=== PATIENT | male | born 1930 | race Caucasian/White ===

== ENCOUNTER 2017-04-20 15:13 | Inpatient (IN) | payer MEDICARE ==
--- NOTE | 2017-04-20 16:36 | RAD ---
CHEST ONE VIEW: HISTORY: Pain. COMPARISON: 05/13/2014 FINDINGS: Portable upright chest demonstrates a left-sided transvenous pacemaker with lead position projecting over the right atrium and right ventricle. There is evidence of a mesh type appearance projecting ov er the AP window. There is atherosclerosis of the aorta. The heart is enlarged. There are bibasila r pleural and parenchymal changes. There is no pneumothorax. No osseous abnormalities. IMPRESSION: Congestive heart failure. Continued surveillance. POS: [facility]
--- NOTE | 2017-04-20 16:57 | ULT ---
VENOUS DOPPLER ULTRASOUND OF THE RIGHT LOWER EXTREMITY: HISTORY: Right leg edema. Shortness of breath. TECHNIQUE: Yoo-scale ultrasound with color-flow and spectral Doppler imaging of the deep venous system of the r ight lower extremity is performed. FINDINGS: There is good flow, compression, and augmentation noted in the right common femoral, femoral, deep fe moral, popliteal, posterior tibial, and greater saphenous veins. IMPRESSION: No evidence of deep venous thrombosis in the right lower extremity. POS: [facility]
[2017-04-20 17:19] LABS: #Lymphocytes 0.4 thou/uL (1.20-3.40); #Monocytes 1.4 thou/uL (0.11-0.59); %Eosinophils 0.1 % (0.0-10.0); %Lymphocytes 2.2 % (21.0-51.0); %Monocytes 7.6 % (0.0-10.0); %Neutrophils 90.2 % (42.0-75.0); Hemoglobin 12.9 g/dL (14.0-18.0); Mean Corpuscular Hemoglobin 30.6 pg (27.0-31.0); Mean Corpuscular Volume 95.6 fl (80.0-94.0); Mean Platelet Volume 8.9 fL (7.4-10.4); Platelet Count 155 thou/uL (130-400); RBC Distribution Width 13.3 % (11.5-14.5); White Blood Cell (WBC) Count 18.9 thou/uL (4.8-10.8)
[2017-04-20 17:26] LABS: INR-International Normal Ratio 1.5; Prothrombin Time 18.2 SEC (12.0-14.7)
[2017-04-20 17:27] LABS: PTT 36.4 SEC (22.9-36.1)
[2017-04-20 17:45] LABS: CKMB 1.2 ng/mL (0-6.6); Troponin I 0.199 ng/mL (< 0.028)
[2017-04-20 17:51] LABS: ALT (SGPT) 23 U/L (8-55); AST (SGOT) 31 U/L (5-34); Alkaline Phosphatase 119 U/L (40-150); Anion Gap 15 mmol/L (10-20); BUN (Urea Nitrogen) 53 mg/dL (8.4-25.7); Bilirubin, Total 1.6 mg/dL (0.2-1.2); CK (CPK) 100 U/L (30-200); Calc. Creatinine Clearance 0 mL/min (70-130); Calcium 9.7 mg/dL (7.8-10.44); Carbon Dioxide 32 mmol/L (23-31); Chloride 95 mmol/L (98-107); Estimated GFR-MDRD 36; Globulin 3.4 g/dL (2.4-3.5); Glucose 135 mg/dL (83-110); Potassium 3.4 mmol/L (3.5-5.1); Protein, Total 7.4 g/dL (5.8-8.1); Sodium 139 mmol/L (136-145)
[2017-04-20] MEDS ORDERED: Furosemide 40 MG/4 ML VIAL ONE (18:48)
[2017-04-20 18:49] LABS: Bilirubin Negative (Negative); Blood, Urine Small (Negative); Glucose, Urine (Dipstick) Negative (Negative); Leukocyte Large (Negative); Nitrite Negative (Negative); Protein, Urine (Dipstick) Trace mg/dL (Neg-Trace); Urobilinogen 0.2 mg/dL (0.2-1.0)
[2017-04-20 18:50] LABS: Clarity Hazy (Clear)
[2017-04-20 18:52] LABS: Hyaline Casts/LPF 0-3 HYALINE CAST LPF (0-3 Hyaline); Pathc Cast-AUWi Flag 0.54 (0-2.49); RBC/HPF 0-3 HPF (0-3); Squamous Epithelial 0-3 HPF (0-3)
[2017-04-20 19:00] LABS: Bacteria/HPF 4+ HPF (None Seen)
[2017-04-20 19:01] LABS: Crystals/HPF None Seen HPF (Negative)
[2017-04-20 20:32] LABS: Troponin I 0.216 ng/mL (< 0.028)
[2017-04-20] MEDS ORDERED: Acetaminophen 325 MG TAB PO PRN ×2 (21:02→23:30)
[2017-04-20] MEDS ORDERED: Ondansetron HCl/PF 4 MG/2 ML Vial IVP PRN (21:02)
[2017-04-20] MEDS ORDERED: Ondansetron ODT 4 MG TAB SL PRN (21:02)
[2017-04-20 22:48] LABS: Troponin I 0.232 ng/mL (< 0.028)
[2017-04-20] MEDS ORDERED: Enoxaparin Sodium 40 MG/0.4 ML SYRINGE SC SCH (23:30)
[2017-04-20] MEDS ORDERED: Ondansetron ODT 4 MG TAB PO PRN (23:30)
[2017-04-21] MEDS ORDERED: Furosemide 40 MG/4 ML VIAL SLOW IVP SCH ×2 (00:30→06:00)
[2017-04-21] MEDS: Furosemide 100 MG/10 ML VIAL SLOW IVP SCH ×3 (00:36→14:59)
[2017-04-21 01:46] LABS: Troponin I 0.275 ng/mL (< 0.028)
[2017-04-21 05:39] LABS: Anion Gap 17 mmol/L (10-20); BUN (Urea Nitrogen) 58 mg/dL (8.4-25.7); Calc. Creatinine Clearance 28 mL/min (70-130); Calcium 9.3 mg/dL (7.8-10.44); Carbon Dioxide 32 mmol/L (23-31); Chloride 94 mmol/L (98-107); Estimated GFR-MDRD 34; Glucose 121 mg/dL (83-110); Magnesium 2.4 mg/dL (1.6-2.6); Potassium 3.5 mmol/L (3.5-5.1); Sodium 139 mmol/L (136-145)
[2017-04-21] MEDS: Nitroglycerin 2% Ointment 1 INCH/1 GM Packet TOP SCH ×3 (05:48→22:45)
[2017-04-21 06:01] LABS: Band 5 % (5-11); Hemoglobin 12.4 g/dL (14.0-18.0); Lymphocytes 5 % (21-51); MDiff Complete? YES; Macrocytosis SLIGHT = 6-15 cells (100X) (0-5/hpf); Mean Corpuscular HGB CONC 32.7 g/dL (32.0-36.0); Mean Corpuscular Hemoglobin 31.5 pg (27.0-31.0); Mean Corpuscular Volume 96.3 fl (80.0-94.0); Mean Platelet Volume 8.7 fL (7.4-10.4); Monocytes 1 % (0-10); Neutrophil 88 % (42-75); PLT Morphology Comment Appears Adequate; Platelet Count 143 thou/uL (130-400); RBC Distribution Width 13.3 % (11.5-14.5); Red Blood Cell (RBC) Count 3.96 mill/uL (4.70-6.10); White Blood Cell (WBC) Count 17.5 thou/uL (4.8-10.8)
--- NOTE | 2017-04-21 07:33 | HP ---
PRIMARY CARE PHYSICIAN: Not listed. PRIMARY AUTOMATION TEST DEVELOPER: Shahbaz Sexton MD CHIEF COMPLAINT: Shortness of breath. HISTORY OF PRESENT ILLNESS: Disclaimer: Majority of the history was taken from the chart. The patient is arousable, but is extremely hard of hearing. When finally awakened, he will quickly go back to sleep and was unable to give any further history. I did speak to his nurse who has been with him since admission. On initial arrival to the ER, he was alert and oriented x4. Mr. River is an 87-year-old white gentleman with a history of coronary artery disease, status post TX in the past; chronic atrial fibrillation, status post procedure in [place] in 10/2016, is also status post pacemaker and AICD placement in 08/2016. He has hyperlipidemia, hypertension, who presented to emergency department complaining of shortness of breath. He has had a 4-5 week history of increasing shortness of breath with dyspnea on exertion. He has had no PND, but does have orthopnea. He has had steadily increased weight, although I do not know how severe during that time. He has had increasing doses of Lasix from 120 mg q.24 hours divided up to 160 mg recently without much effect. He has had bilateral lower extremity edema that seems to be increasing as well. No chest pain, no nausea, vomiting, diarrhea, constipation , or GI bleeding. He denies any abdominal pain or palpitations. In the emergency department, he was given IV Lasix, we were called for admission when chest x-ray and BNP suggestive CHF. PAST MEDICAL HISTORY: 1. Coronary artery disease. 2. Status post myocardial infarction in the past. 3. Chronic atrial fibrillation. 4. Hyperlipidemia. 5. Hypertension. PAST SURGICAL HISTORY: Include; 1. Hernia repair. 2. Pacemaker placement/AICD in 08/2016 and 10/2016, had a Watchman procedure in [place]. HOME MEDICATIONS: 1. Metolazone 7.5 mg orally weekly. 2. Potassium chloride 20 mEq daily. 3. Coreg 3.125 mg p.o. q.a.m., 6.25 mg p.o. q.p.m. 4. Zocor 20 mg p.o. at bedtime. 5. Losartan 25 mg p.o. at bedtime. 6. Lasix currently at 80 mg b.i.d. and in morning and in noon. 7. Finasteride 5 mg daily. 8. Plavix 75 mg daily. 9. Terazosin 10 mg daily. 10. Aspirin 81 mg daily. 11. Melatonin 5 mg p.o. at bedtime. ALLERGIES: NKDA. FAMILY HISTORY: Negative for clotting or bleeding disorder. No immune dysfunction. SOCIAL HISTORY: Negative for habits x3. He is and lives at home with his . REVIEW OF SYSTEMS: Not obtainable due to increased somnolence. PHYSICAL EXAMINATION: VITAL SIGNS: Temperature 100.1, pulse 67, blood pressure 100/53, respiration rate 18, O2 sat 93% on room air. Weight is currently 161 pounds per bed scale. GENERAL: He is sleeping soundly. He appears comfortable, in no distress. He is arousable and opens his eyes, but quickly falls back asleep. He does not make eye contact, does not try to communicate. HEENT: Normocephalic, atraumatic. Pupils are equal, reactive bilaterally, mucous membranes are moist. Nasal cannula is in place. NECK: Supple with no lymphadenopathy, JVD, or thyromegaly. He has normal carotid upstrokes without bruits. LUNGS: Clear anteriorly, however, posteriorly, he has coarse crackles present about half way of the lungs. He has good air movement. Symmetrical chest excursion. CARDIOVASCULAR: He has regular rate in mid 70s. He has normal S1 and S2. I do not appreciate murmurs. ABDOMEN: Soft, is nontender, nondistended with normoactive bowel sounds. There is no rebound, rigidity, or guarding. EXTREMITIES: Show 2+ edema to the mid tibial level. Cannot palpate peripheral pulses. His capillary refill is normal at 2 seconds. SKIN: Otherwise, warm, moist, and well perfused without any other rashes or lesions. NEUROLOGIC: Not testable. MUSCULOSKELETAL: Normal to inspection. He has no inflamed joints. No palpable joint effusions. LABORATORY DATA: CMP is fairly normal with sodium 139, potassium 3.4, chloride 95, bicarbonate 32, BUN 53, and creatinine 1.78. Review of his visits just a couple of days ago, his creatinine was 1.30. He normally lives in the 0.9-1.1 range. Glucose 135. Liver function normal. CBC showed white count of 18,900. He has a 98% granulocytosis and 2% lymphocytosis. Last white count we have here was back in October was normal at 8.9. Review of his leukocyte count has always been a little on the low side, normally around 1000. Certainly not 400 as today. Hemoglobin is 12.9, hematocrit of 40.2, platelet count of 155,000. RADIOGRAPHIC STUDIES: Chest x-ray showed bilateral pulmonary edema consistent with CHF. Right lower extremity ultrasound is negative for DVT. ASSESSMENT AND PLAN: 1. Acute exacerbation of congestive heart failure. Suspect diastolic. A transthoracic echo here was in 2013. We will place him on a little bit of nitro paste, schedule IV Lasix q.6 hours overnight and metolazone 2.5 mg daily for now. We will get a 2D echocardiogram, we will ask Cardiology to evaluate. The patient sees Dr. Sexton normally. 2. Chronic atrial fibrillation: Patient is paced and is currently stable 75 beats per minute. 3. Hypertension: Currently controlled. We will continue home medications. I may need to remove nitro paste with blood pressure gets too low. 4. Hyperlipidemia, on Zocor, we will hold at the moment. 5. Coronary artery disease, no chest pain. His troponin I was 0.199 and 0.216. We will continue to trend these. BNP was 1327. The patient had no complaints of chest pain on arrival. 6. Possible urinary tract infection. Certainly had pyuria with greater than 50 white blood cells per high power field, 4+ bacteria and large leukoesterase. We will start him on Cipro b.i.d. 7. Acute kidney injury. Creatinine currently 1.78, suspect due to cardiorenal syndrome. Hopefully, with increased cardiac output and his creatinine will improve. Watch him very closely on the Lasix. His BUN and creatinine ratio certainly greater than 20:1. Suspect this may be a prerenal problem due to his congestive heart failure. [facility]
[2017-04-21 07:47] LABS: CKMB 1.4 ng/mL (0-6.6)
[2017-04-21 07:52] LABS: Troponin I 0.328 ng/mL (< 0.028)
[2017-04-21] MEDS ORDERED: Metolazone 2.5 MG TAB PO SCH (08:30)
[2017-04-21] MEDS: Clopidogrel Bisulfate 75 MG TAB PO SCH (09:49)
[2017-04-21] MEDS: Carvedilol 6.25 MG TAB PO SCH ×2 (09:49→21:55)
[2017-04-21] MEDS: Vit A,C & E/Lutein/Minerals Tablet PO SCH ×2 (09:49→21:59)
[2017-04-21] MEDS: Famotidine/PF 20 mg/2ml Vial SLOW IVP SCH (09:49)
[2017-04-21] MEDS: Enoxaparin Sodium 40 MG/0.4 ML SYRINGE SC SCH (09:50)
--- NOTE | 2017-04-21 11:33 | PDOC.PN ---
- Subjective Encounter Start Date: 04/21/17 Encounter Start Time: 09:00 Subjective: breathing better, no chest pain -: is eating breakfast - Objective Resuscitation Status: Resuscitation Status FULL:Full Resuscitation MAR Reviewed: Yes Vital Signs & Weight: Vital Signs (12 hours) Temp Pulse Resp BP Pulse Ox 04/21/17 05:45 69 18 108/70 97 04/21/17 04:09 99.2 F 69 22 H 110/58 L 94 L 04/21/17 02:00 104/54 L 04/21/17 00:15 99.8 F H 70 18 94/52 L 96 Weight Weight 161 lb I&O: 04/20/17 04/21/17 04/22/17 06:59 06:59 06:59 Intake Total 240 Balance 240 Result Diagrams: 04/21/17 04:44 04/21/17 04:44 Phys Exam - Physical Examination HEENT: PERRLA, moist MMs Neck: no JVD, supple Respiratory: no wheezing rales+ Cardiovascular: RRR, no significant murmur Gastrointestinal: soft, non-tender, no distention, positive bowel sounds Musculoskeletal: pulses present, edema present Neurological: non-focal, moves all 4 limbs Psychiatric: A&O x 3 Dx/Plan (1) CHF exacerbation Code(s): I50.9 - HEART FAILURE, UNSPECIFIED Status: Acute Comment: await echo results (2) CAD (coronary artery disease) Code(s): I25.10 - ATHSCL HEART DISEASE OF [place] CORONARY ARTERY W/O ANG PCTRS Status: Chronic Qualifiers: Coronary Disease-Associated Artery/Lesion type: [place] artery [place] vs. transplanted heart: [place] heart Associated angina: with stable angina Qualified Code(s): I25.118 - Atherosclerotic heart disease of [place] coronary artery with other forms of angina pectoris (3) Demand ischemia of myocardium Code(s): I24.8 - OTHER FORMS OF ACUTE ISCHEMIC HEART DISEASE Status: Acute (4) HTN (hypertension) Code(s): I10 - ESSENTIAL (PRIMARY) HYPERTENSION Status: Chronic Qualifiers: Hypertension type: essential hypertension Qualified Code(s): I10 - Essential (primary) hypertension (5) Afib Code(s): I48.91 - UNSPECIFIED ATRIAL FIBRILLATION Status: Chronic Qualifiers: Atrial fibrillation type: chronic Qualified Code(s): I48.2 - Chronic atrial fibrillation (6) Dyslipidemia Code(s): E78.5 - HYPERLIPIDEMIA, UNSPECIFIED Status: Chronic (7) FABIOLA (acute kidney injury) Code(s): N17.9 - ACUTE KIDNEY FAILURE, UNSPECIFIED Status: Acute (8) CKD (chronic kidney disease) Code(s): N18.9 - CHRONIC KIDNEY DISEASE, UNSPECIFIED Status: Chronic Qualifiers: Chronic kidney disease stage: stage 3 (moderate) Qualified Code(s): N18.3 - Chronic kidney disease, stage 3 (moderate) - Plan lasix 80 iv q12h with metolazone -: is on asp, plavix, coreg and hytrin for prostate -: watch for hypotension, dc cozaar for now -: d/w pt and reg code status, he wants to be DNR -: cardio and nephrology consultation * . Review of Systems - Medications/Allergies Allergies/Adverse Reactions: Allergies Allergy/AdvReac Type Severity Reaction Status Date / Time No Known Allergies Allergy Verified 04/20/17 23:10 Medications: Current Medications Acetaminophen (Tylenol) 650 mg PO Q4H PRN PRN Reason: Headache/Fever or Pain Hydrocodone Bitart/Acetaminophen ([place] 5/325) 1 tab PO Q4H PRN PRN Reason: Moderate Pain (4-6) Aspirin (Ecotrin) 81 mg PO HS [facility] Carvedilol (Coreg) 3.125 mg PO QAM [facility] Last Admin: 04/21/17 09:49 Dose: 3.125 mg Carvedilol (Coreg) 6.25 mg PO QPM [facility] Ciprofloxacin (Cipro) 500 mg PO 0600,2000 [facility] Clopidogrel Bisulfate (Plavix) 75 mg PO DAILY [facility] Last Admin: 04/21/17 09:49 Dose: 75 mg Enoxaparin Sodium (Lovenox) 40 mg SC 0900 [facility] Last Admin: 04/21/17 09:50 Dose: 40 mg Famotidine (Pepcid) 20 mg SLOW IVP DAILY [facility] Last Admin: 04/21/17 09:49 Dose: 20 mg Finasteride (Proscar) 5 mg PO HS [facility] Furosemide (Lasix) 80 mg SLOW IVP 0600,1400 [facility] Melatonin (Melatonin) 6 mg PO HS [facility] Metolazone (Zaroxolyn) 2.5 mg PO 0830 [facility] Multivitamins/Minerals (Ocuvite With Lutein) 1 tab PO BID [facility] Last Admin: 12/30/17 09:49 Dose: 1 tab Nitroglycerin (Nitro-Bid 2% Ointment) 0.5 inch TOP Q8HR [facility] Last Admin: 04/21/17 05:48 Dose: Not Given Ondansetron HCl (Zofran Odt) 4 mg PO Q6H PRN PRN Reason: Nausea/Vomiting Potassium Chloride (Klor-Con) 20 meq PO QAM-WM [facility] Last Admin: 04/21/17 09:49 Dose: 20 meq Sodium Chloride (Flush - Normal Saline) 10 ml IVF Q12HR [facility] Sodium Chloride (Flush - Normal Saline) 10 ml IVF PRN PRN PRN Reason: Saline Flush Terazosin HCl (Hytrin) 10 mg PO HS [facility]
--- NOTE | 2017-04-21 13:48 | CON ---
DATE OF CONSULTATION: 04/21/2017 PRIMARY SUPERVISOR SANDBLASTER: Dr. Sexton. REASON FOR CONSULTATION: Congestive heart failure. HISTORY OF PRESENT ILLNESS: Mr. River is a very pleasant gentleman, a longstanding patient of Dr. Sexton. He has a history of coronary artery disease best treated medically. He has a history of atrial fibrillation and a history of left ventricular dysfunction. The patient was doing well up unt il recently started having more trouble breathing, including difficulty breathing at rest required hi m to sit up. He came to the hospital last night, started on intravenous diuretics, and is feeling be tter now. He has been more short of breath in the last 4-5 weeks. PAST MEDICAL HISTORY: 1. Coronary artery disease best treated medically. 2. Previous myocardial infarction. 3. Chronic atrial fibrillation. 4. Hyperlipidemia. 5. Hypertension. PAST SURGICAL HISTORY: 1. Hernia repair. 2. Biventricular pacemaker defibrillator. 3. Watchman procedure with adequate response. MEDICATIONS AT HOME: Metolazone 7.5 mg a week, potassium, Coreg, losartan, Lasix, Plavix, terazosin, melatonin. ALLERGIES: None. FAMILY HISTORY: Negative for coronary artery disease at a young age. SOCIAL HISTORY: No alcohol or tobacco. REVIEW OF SYSTEMS: Constitutional: No significant weight gain or loss. Vision: No changes. Heari ng: No changes. Pulmonary: No cough or wheezing. Gastrointestinal: No nausea, vomiting, or diarr hea. Skin: No rashes. Neurologic: No unilateral weakness or numbness. Psychiatric: No unusual d epression or anxiety. Hematologic: No unusual bruising. Genitourinary: No burning with urination. Musculoskeletal: No unusual joint pains. PHYSICAL EXAMINATION: GENERAL: A pleasant gentleman, in no distress. VITAL SIGNS: Blood pressure 108/70, pulse 70 and regular. LUNGS: Clear. CARDIAC: Normal S1, normal S2. There is no murmur, rub, or gallop. ABDOMEN: Soft, nontender. No hepatosplenomegaly. EXTREMITIES: Warm, dry. No clubbing or cyanosis. Only minimal edema. NEUROLOGIC: Grossly normal. Moves all extremities. PERTINENT LABORATORY DATA: Hemoglobin is 12.4. BNP 1327. Troponin 0.328 compatible with mostly dem and ischemia, creatinine 1.88. ASSESSMENT: 1. Congestive heart failure, improved. 2. Stage 3 renal failure. 3. Increased troponin, probably demand ischemia related to heart failure. 4. Chronic atrial fibrillation. 5. Previous Watchman, does not need anticoagulation. 6. Biventricular pacemaker defibrillator looks to be functioning normally with occasional undersensi ng of PVCs makes the functions normal. PLAN: 1. Agree with intravenous diuretics. 2. Probably need to reduce furosemide tomorrow. 3. He is already on aspirin and Plavix. Dr. Wadsworth will see `the patient tomorrow.
[2017-04-21] MEDS ORDERED: Losartan 25 MG TAB PO SCH (21:00)
[2017-04-21] MEDS: Ciprofloxacin 500 MG TAB PO SCH (21:55)
[2017-04-21] MEDS: Finasteride 5 MG TAB PO SCH (21:58)
[2017-04-21] MEDS: Terazosin HCl 5 MG CAP PO SCH (21:58)
[2017-04-21] MEDS: Melatonin 3 MG TAB PO SCH (21:58)
[2017-04-21] MEDS: Aspirin 81 mg Enteric Coated Tablet PO SCH (21:59)
--- NOTE | 2017-04-21 22:40 | CON ---
DATE OF CONSULTATION: 04/21/2017 CONSULTING PHYSICIAN: Scott Fortune M.D. REASON FOR CONSULTATION: Acute kidney injury. REASON FOR ADMISSION: Shortness of breath. HISTORY OF PRESENT ILLNESS: This is an 87-year-old male with past medical history of CHF, coronary a rtery disease, atrial fibrillation, hyperlipidemia, hypertension who came to the hospital with shortn ess of breath and was on diuretics. His creatinine on admission was 1.3 and this morning was 1.8. N ephrology is consulted for acute kidney injury and further diuretic and volume management. Cardiolo gy also being consulted and has been following him. The patient is feeling a little bit better, less short of breath. He was on Lasix 80 IV q.6 h, which was changed to 80 IV b.i.d. today. He is also on metolazone daily. No chest pain, palpitation, no fever or chills, no nausea, vomiting, diarrhea reported. PAST MEDICAL HISTORY: Positive for coronary artery disease, [place], atrial fibrillation, hyperlipidemia, hypertension. PAST SURGICAL HISTORY: Hernia repair, pacemaker placement, Watchman procedure. HOME MEDICATION: Metolazone, potassium chloride, Coreg, Zocor, losartan, Lasix, finasteride, Plavix, terazosin, aspirin, melatonin. ALLERGIES: No known drug allergies. SOCIAL HISTORY: No smoking, alcohol or illicit drug abuse. FAMILY HISTORY: No history of kidney disease. REVIEW OF SYSTEMS: The following complete review of systems was negative, unless otherwise mentioned in the HPI or below: Constitutional: Weight loss or gain, ability to conduct usual activities. Skin: Rash, itching. Ey es: Double vision, pain. ENT/Mouth: Nose bleeding, neck stiffness, pain, tenderness. Cardiovascul ar: Palpitations, dyspnea on exertion, orthopnea. Respiratory: Shortness of breath, wheezing, coug h, hemoptysis, fever or night sweats. Gastrointestinal: Poor appetite, abdominal pain, heartburn, n ausea, vomiting, constipation, or diarrhea. Genitourinary: Urgency, frequency, dysuria, nocturia. Musculoskeletal: Pain, swelling. Neurologic/Psychiatric: Anxiety, depression. Allergy/Immunologic : Skin rash, bleeding tendency. PHYSICAL EXAMINATION: GENERAL: This is an elderly male in no apparent distress. VITAL SIGNS: Temperature 99.5, pulse 67, respiratory rate 20, blood pressure 101/53. HEENT: Atraumatic, normocephalic. Oral mucosa is moist. NECK: Supple, no masses. CARDIOVASCULAR: S1, S2 heard. Rate and rhythm regular. RESPIRATORY: Clear. GASTROINTESTINAL: Abdomen is soft. MUSCULOSKELETAL: 1+ edema. DERMATOLOGIC: No skin rash. NEUROLOGIC: Alert, awake. PSYCHIATRIC: Mood and affect normal. LABORATORY DATA: WBC 17.5, potassium is 3.5, BUN is 58, creatinine is 1.8. ASSESSMENT AND PLAN: 1. Acute kidney injury most likely from volume depletion, diuresis, agree with reducing the diuretic dose and monitor. No IV hydration for now. We could consider albumin if tolerated. 2. Leukocytosis, rule out any infection. 3. Anemia, mild. 4. Edema. 5. Cardiorenal syndrome as above. 6. Urinary tract infection with Escherichia coli. Continue on antibiotics. 7. Continue supportive care. Agree with reducing the Lasix dose for now and we will follow. Thank you for the consultation. Monitor potassium closely. Continue on potassium supplements and po tassium level is on the lower side of normal. Again, thank you for the consultation. We will follow.
[2017-04-22 05:31] LABS: Anion Gap 16 mmol/L (10-20); BUN (Urea Nitrogen) 70 mg/dL (8.4-25.7); Calc. Creatinine Clearance 26 mL/min (70-130); Calcium 8.9 mg/dL (7.8-10.44); Carbon Dioxide 31 mmol/L (23-31); Chloride 94 mmol/L (98-107); Estimated GFR-MDRD 31; Glucose 106 mg/dL (83-110); Sodium 138 mmol/L (136-145)
[2017-04-22 05:34] LABS: Potassium 2.9 mmol/L (3.5-5.1)
[2017-04-22 05:57] LABS: Band 30 % (5-11); Hemoglobin 11.7 g/dL (14.0-18.0); Lymphocytes 4 % (21-51); MDiff Complete? YES; Mean Corpuscular HGB CONC 31.6 g/dL (32.0-36.0); Mean Corpuscular Hemoglobin 30.4 pg (27.0-31.0); Mean Corpuscular Volume 96.3 fl (80.0-94.0); Mean Platelet Volume 8.8 fL (7.4-10.4); Monocytes 3 % (0-10); Neutrophil 63 % (42-75); PLT Morphology Comment Appears Decreased; Platelet Count 128 thou/uL (130-400); RBC Distribution Width 13.3 % (11.5-14.5); RBC Morphology Normal; Red Blood Cell (RBC) Count 3.84 mill/uL (4.70-6.10); White Blood Cell (WBC) Count 9.2 thou/uL (4.8-10.8)
[2017-04-22] MEDS: Potassium Chloride 20 MEQ TAB PO SCH ×5 (06:08→17:20)
[2017-04-22] MEDS: Ciprofloxacin 500 MG TAB PO SCH ×2 (06:08→20:42)
[2017-04-22] MEDS: Nitroglycerin 2% Ointment 1 INCH/1 GM Packet TOP SCH ×2 (06:11→13:55)
[2017-04-22] MEDS: Furosemide 100 MG/10 ML VIAL SLOW IVP SCH (06:24)
--- NOTE | 2017-04-22 07:18 | PDOC.PN ---
- Subjective Encounter Start Date: 04/22/17 Encounter Start Time: 07:17 Subjective: Seen and examined feeling a little bit better - Objective Resuscitation Status: Resuscitation Status DNR:Do Not Resuscitate Vital Signs & Weight: Vital Signs (12 hours) Temp Pulse Resp BP BP Pulse Ox 04/22/17 04:00 97.5 F L 71 16 97/50 L 98 04/21/17 21:55 118/60 04/21/17 20:00 98.3 F 82 22 H 118/60 92 L Weight Weight 161 lb I&O: 04/21/17 04/22/17 04/23/17 06:59 06:59 06:59 Intake Total 240 720 Output Total 600 Balance 240 120 Result Diagrams: 04/22/17 04:34 04/22/17 04:34 Phys Exam - Physical Examination Constitutional: NAD HEENT: PERRLA, moist MMs, sclera anicteric, TM's clear Neck: no nodes, no JVD, supple, full ROM Respiratory: no wheezing, no rales, no rhonchi, clear to auscultation bilateral Cardiovascular: RRR, no significant murmur, no rub Gastrointestinal: soft, non-tender, no distention, positive bowel sounds Musculoskeletal: pulses present, edema present Dx/Plan (1) FABIOLA (acute kidney injury) Code(s): N17.9 - ACUTE KIDNEY FAILURE, UNSPECIFIED Status: Acute (2) CHF exacerbation Code(s): I50.9 - HEART FAILURE, UNSPECIFIED Status: Acute Comment: await echo results (3) Demand ischemia of myocardium Code(s): I24.8 - OTHER FORMS OF ACUTE ISCHEMIC HEART DISEASE Status: Acute (4) Afib Code(s): I48.91 - UNSPECIFIED ATRIAL FIBRILLATION Status: Chronic Qualifiers: Atrial fibrillation type: chronic Qualified Code(s): I48.2 - Chronic atrial fibrillation (5) CAD (coronary artery disease) Code(s): I25.10 - ATHSCL HEART DISEASE OF [place] CORONARY ARTERY W/O ANG PCTRS Status: Chronic Qualifiers: Coronary Disease-Associated Artery/Lesion type: [place] artery [place] vs. transplanted heart: [place] heart Associated angina: with stable angina Qualified Code(s): I25.118 - Atherosclerotic heart disease of [place] coronary artery with other forms of angina pectoris (6) CKD (chronic kidney disease) Code(s): N18.9 - CHRONIC KIDNEY DISEASE, UNSPECIFIED Status: Chronic Qualifiers: Chronic kidney disease stage: stage 3 (moderate) Qualified Code(s): N18.3 - Chronic kidney disease, stage 3 (moderate) (7) Dyslipidemia Code(s): E78.5 - HYPERLIPIDEMIA, UNSPECIFIED Status: Chronic (8) HTN (hypertension) Code(s): I10 - ESSENTIAL (PRIMARY) HYPERTENSION Status: Chronic Qualifiers: Hypertension type: essential hypertension Qualified Code(s): I10 - Essential (primary) hypertension - Plan plan discussed w/ family, PT/OT, adoption social worker, respiratory therapy Diuresis--de-escalating -: ARb on hold while undergoing diuresis -: Reanl and Cardiology following the case-appreciate their input * .
[2017-04-22] MEDS: Clopidogrel Bisulfate 75 MG TAB PO SCH (09:42)
[2017-04-22] MEDS: Famotidine/PF 20 mg/2ml Vial SLOW IVP SCH (09:43)
[2017-04-22] MEDS: Vit A,C & E/Lutein/Minerals Tablet PO SCH ×2 (09:43→20:41)
[2017-04-22] MEDS: Carvedilol 6.25 MG TAB PO SCH ×2 (10:02→20:45)
[2017-04-22] MEDS: Enoxaparin Sodium 40 MG/0.4 ML SYRINGE SC SCH (10:03)
[2017-04-22] MEDS ORDERED: Potassium Chloride 20 MEQ TAB PO SCH (12:00)
--- NOTE | 2017-04-22 15:00 | PDOC.CTH ---
<Mary Dempsey - Last Filed: 04/22/17 14:48> Cardiology Progress Note - Subjective the pt seen and examined. No overnight events. No cardiac complaints. He is confused today. Hard to hear - Objective Vital Signs Temp Pulse Resp BP BP Pulse Ox 04/22/17 11:49 97.7 F 90 16 101/57 L 99 04/22/17 10:02 118/60 04/22/17 08:00 97.7 F 75 16 111/57 L 96 04/22/17 04:00 97.5 F L 71 16 97/50 L 98 Weight 159 lb 14.4 oz 04/21/17 04/22/17 04/23/17 06:59 06:59 06:59 Intake Total 240 1130 Output Total 600 Balance 240 530 - Physical Examination Neck: no JVD present Lungs: other: (diminished at bases) Heart: other: (paced) Abdomen: soft Extremities: other: (2-3 + pitting BLE edema) - Telemetry Telemetry Rhythm: V paced - Labs Result Diagrams: 04/22/17 04:34 04/22/17 04:34 Troponin/CKMB CK-MB (CK-2) 1.4 ng/mL (0-6.6) 04/21/17 07:13 Troponin I 0.328 ng/mL (< 0.028) H* 04/21/17 07:13 - Assessment/Plan 1. Acute on Chronic Systolic HF - Hx of BiV AICD; Echo on 03/2017 showed EF 20- 25%, Severe LAE, mild MR, and inferior and posterior akinesis; stable with current medication; 2. Acute on CKD stage 3 - Lasix IV was decreased from BID to QD; managed by epic professional 3. Chronic Afib - Rate well controlled; No OAC due to Watchman's device; cont. monitor on tele 4. CAD - stable; cont. medical treatment 5. HTN - stable with current medication 6. Hyperlipidmeia - start simvastatin 20mg PO daily 7. Hypokalemia - covered with Kcl supplement; managed by PCP 8. Edema - raise his BLE while resting MAR reviewed Review of Systems - Review of Systems Constitutional: reports: see HPI EENTM: reports: no symptoms reported Respiratory: reports: no symptoms reported Cardiac (ROS): reports: no symptoms reported ABD/GI: reports: no symptoms reported : reports: no symptoms reported Musculoskeletal: reports: no symptoms reported <Gold Wadsworth - Last Filed: 04/22/17 19:36> Cardiology Progress Note - Objective Vital Signs Temp Pulse Resp BP BP Pulse Ox 04/22/17 15:10 98.3 F 70 16 100/56 L 98 04/22/17 11:49 97.7 F 90 16 101/57 L 99 04/22/17 10:02 118/60 04/22/17 08:00 97.7 F 75 16 111/57 L 96 Weight 159 lb 14.4 oz 04/21/17 04/22/17 04/23/17 06:59 06:59 06:59 Intake Total 240 1130 960 Output Total 600 Balance 240 530 960 - Labs Result Diagrams: 04/22/17 04:34 04/22/17 04:34 Troponin/CKMB CK-MB (CK-2) 1.4 ng/mL (0-6.6) 04/21/17 07:13 Troponin I 0.328 ng/mL (< 0.028) H* 04/21/17 07:13 - Assessment/Plan Pt. seen and eval. by me. No complaints. I agree with the A/P by the CASE PACKER AND SEALER.Continue present meds.
--- NOTE | 2017-04-22 18:49 | PRG ---
DATE OF SERVICE: 04/22/2017 SUBJECTIVE: Patient was seen and examined at bedside and overnight events noted. Patient denies any shortness of breath or chest pain or palpitation. No history of nausea or vomiting or diarrhea or f ever or chills or cramps. OBJECTIVE: GENERAL: This is an elderly male, in no apparent distress. VITAL SIGNS: Temperature 98.3, pulse 70, respiratory rate 16, and blood pressure 101/57. HEENT: Atraumatic, normocephalic, Oral mucosa is moist. NECK: Supple. CARDIOVASCULAR: S1, S2 heard. Rate and rhythm regular. RESPIRATORY: Clear to auscultation. GASTROINTESTINAL: Abdomen is soft. MUSCULOSKELETAL: No tenderness, no edema. DERMATOLOGIC: No skin rash. NEUROLOGIC: Alert and awake and oriented X3. No focal neurologic deficits, moving all the extremiti es. PSYCHIATRIC: Mood and affect normal. LABORATORY DATA: Potassium is 2.9, BUN is 17, creatinine 2.0. ASSESSMENT AND PLAN: 1. Acute kidney injury secondary to volume depletion, reduce Lasix dose. Agree with stopping metola zone. 2. Leukocytosis anemia. 3. Edema. 4. Cardiorenal syndrome as above. 5. Urinary tract infection. Continue antibiotics. Will reduce the Lasix dose and metolazone, we wi ll follow and replace potassium.
[2017-04-22] MEDS: Aspirin 81 mg Enteric Coated Tablet PO SCH (20:42)
[2017-04-22] MEDS: Finasteride 5 MG TAB PO SCH (20:42)
[2017-04-22] MEDS: Terazosin HCl 5 MG CAP PO SCH (20:43)
[2017-04-22] MEDS: Melatonin 3 MG TAB PO SCH (20:44)
[2017-04-23] MEDS: Nitroglycerin 2% Ointment 1 INCH/1 GM Packet TOP SCH ×4 (00:04→21:23)
[2017-04-23] MEDS: Furosemide 100 MG/10 ML VIAL SLOW IVP SCH (05:54)
[2017-04-23] MEDS: Ciprofloxacin 500 MG TAB PO SCH ×2 (05:54→21:19)
--- NOTE | 2017-04-23 08:13 | PDOC.PN ---
- Subjective Encounter Start Date: 04/23/17 Encounter Start Time: 08:30 Subjective: No cough or SOB this morning. Feeling better. - Objective Resuscitation Status: Resuscitation Status DNR:Do Not Resuscitate MAR Reviewed: Yes Vital Signs & Weight: Vital Signs (12 hours) Temp Pulse Resp BP BP Pulse Ox 04/23/17 05:00 95 04/23/17 04:00 97.6 F 70 18 115/68 98 04/23/17 00:00 97.5 F L 70 19 115/68 96 04/22/17 20:45 118/60 Weight Weight 161 lb I&O: 04/22/17 04/23/17 04/24/17 06:59 06:59 06:59 Intake Total 1130 1470 Output Total 600 450 Balance 530 1020 Result Diagrams: 04/22/17 04:34 04/23/17 08:29 Phys Exam - Physical Examination Constitutional: NAD HEENT: moist MMs Respiratory: no wheezing, no rales, no rhonchi Cardiovascular: RRR, no significant murmur Gastrointestinal: soft, positive bowel sounds Musculoskeletal: no edema Neurological: non-focal Psychiatric: normal affect Dx/Plan (1) FABIOLA (acute kidney injury) Code(s): N17.9 - ACUTE KIDNEY FAILURE, UNSPECIFIED Status: Acute Comment: Cardiorenal syndrome, diuretics decreased, potassium repleted, holding ARB for now (2) CHF exacerbation Code(s): I50.9 - HEART FAILURE, UNSPECIFIED Status: Acute Qualifiers: Congestive heart failure type: systolic Qualified Code(s): I50.23 - Acute on chronic systolic (congestive) heart failure Comment: EF 20-25% (3) Demand ischemia of myocardium Code(s): I24.8 - OTHER FORMS OF ACUTE ISCHEMIC HEART DISEASE Status: Acute (4) Afib Code(s): I48.91 - UNSPECIFIED ATRIAL FIBRILLATION Status: Chronic Qualifiers: Atrial fibrillation type: chronic Qualified Code(s): I48.2 - Chronic atrial fibrillation (5) CAD (coronary artery disease) Code(s): I25.10 - ATHSCL HEART DISEASE OF [place] CORONARY ARTERY W/O ANG PCTRS Status: Chronic Qualifiers: Coronary Disease-Associated Artery/Lesion type: [place] artery [place] vs. transplanted heart: [place] heart Associated angina: with stable angina Qualified Code(s): I25.118 - Atherosclerotic heart disease of [place] coronary artery with other forms of angina pectoris (6) CKD (chronic kidney disease) Code(s): N18.9 - CHRONIC KIDNEY DISEASE, UNSPECIFIED Status: Chronic Qualifiers: Chronic kidney disease stage: stage 3 (moderate) Qualified Code(s): N18.3 - Chronic kidney disease, stage 3 (moderate) (7) Dyslipidemia Code(s): E78.5 - HYPERLIPIDEMIA, UNSPECIFIED Status: Chronic (8) HTN (hypertension) Code(s): I10 - ESSENTIAL (PRIMARY) HYPERTENSION Status: Chronic Qualifiers: Hypertension type: essential hypertension Qualified Code(s): I10 - Essential (primary) hypertension (9) UTI (urinary tract infection) Status: Acute Qualifiers: Urinary tract infection type: acute cystitis Comment: E. coli pansensitive, on Cipro - Plan cont current plan of care, continue antibiotics, PT/OT, DVT proph w/lovenox Home after stable from cardiac and renal standpoint. * . - Discharge Day Encounter end time: 09:00
[2017-04-23] MEDS: Clopidogrel Bisulfate 75 MG TAB PO SCH (09:10)
[2017-04-23] MEDS: Vit A,C & E/Lutein/Minerals Tablet PO SCH ×2 (09:10→21:16)
[2017-04-23] MEDS: Famotidine/PF 20 mg/2ml Vial SLOW IVP SCH (09:10)
[2017-04-23 09:11] LABS: Anion Gap 12 mmol/L (10-20); BUN (Urea Nitrogen) 72 mg/dL (8.4-25.7); Calc. Creatinine Clearance 28 mL/min (70-130); Calcium 9.1 mg/dL (7.8-10.44); Carbon Dioxide 35 mmol/L (23-31); Chloride 97 mmol/L (98-107); Estimated GFR-MDRD 35; Glucose 108 mg/dL (83-110); Potassium 3.4 mmol/L (3.5-5.1); Sodium 141 mmol/L (136-145)
[2017-04-23] MEDS: Carvedilol 6.25 MG TAB PO SCH ×2 (09:12→21:16)
[2017-04-23] MEDS: Enoxaparin Sodium 40 MG/0.4 ML SYRINGE SC SCH (09:12)
--- NOTE | 2017-04-23 11:13 | PDOC.CTH ---
<Mary Dempsey - Last Filed: 04/23/17 11:11> Cardiology Progress Note - Subjective The pt seen and examined. No overnight events. No cardiac complaints. The pt is more alerted today. is bedside and questions were answered. - Objective Vital Signs Temp Pulse Resp BP Pulse Ox 04/23/17 09:10 97.3 F L 82 18 97 04/23/17 09:08 97.3 F L 82 18 148/91 H 97 04/23/17 05:00 95 04/23/17 04:00 97.6 F 70 18 115/68 98 04/23/17 00:00 97.5 F L 70 19 115/68 96 Weight 161 lb 04/22/17 04/23/17 04/24/17 06:59 06:59 06:59 Intake Total 1130 1470 Output Total 600 450 Balance 530 1020 - Physical Examination General/Neuro: alert & oriented x3 Neck: no JVD present Lungs: other: (diminished at bedside) Heart: other: (V paced) Abdomen: soft Extremities: other: (3+ pitting BLE edema) - Telemetry Telemetry Rhythm: BiV paced - Labs Result Diagrams: 04/22/17 04:34 04/23/17 08:29 Troponin/CKMB CK-MB (CK-2) 1.4 ng/mL (0-6.6) 04/21/17 07:13 Troponin I 0.328 ng/mL (< 0.028) H* 04/21/17 07:13 - Assessment/Plan 1. Acute on Chronic Systolic HF - Hx of BiV AICD; Echo on 03/2017 showed EF 20- 25%, Severe LAE, mild MR, and inferior and posterior akinesis; stable with current medication; 2. Acute on CKD stage 3 - Lasix and metolazine are held; managed by contact lens fitter 3. Chronic Afib - Rate well controlled; No OAC due to Watchman's device; cont. monitor on tele 4. CAD - stable; cont. medical treatment 5. HTN - stable with current medication 6. Hyperlipidmeia - start simvastatin 20mg PO daily 7. Hypokalemia - improved today; managed by PCP 8. Edema - better today; cont. raise his BLE while resting MAR reviewed * Echo result was given and explained to the pt's today Review of Systems - Review of Systems Constitutional: reports: no symptoms reported EENTM: reports: no symptoms reported Respiratory: reports: no symptoms reported Cardiac (ROS): reports: no symptoms reported ABD/GI: reports: no symptoms reported : reports: no symptoms reported Musculoskeletal: reports: no symptoms reported <Gold Wadsworth - Last Filed: 04/23/17 17:45> Cardiology Progress Note - Objective Vital Signs Temp Pulse Resp BP Pulse Ox 04/23/17 16:00 97.5 F L 81 14 99/55 L 96 04/23/17 12:29 96.9 F L 76 16 94/55 L 94 L 04/23/17 09:10 97.3 F L 82 18 97 04/23/17 09:08 97.3 F L 82 18 148/91 H 97 Weight 161 lb 04/22/17 04/23/17 04/24/17 06:59 06:59 06:59 Intake Total 1130 1470 Output Total 600 450 Balance 530 1020 - Labs Result Diagrams: 04/22/17 04:34 04/23/17 08:29 Troponin/CKMB CK-MB (CK-2) 1.4 ng/mL (0-6.6) 04/21/17 07:13 Troponin I 0.328 ng/mL (< 0.028) H* 04/21/17 07:13 - Assessment/Plan Pt. seen and evaluated by me. I agree with the A/P by the COMPOUNDING AND FINISHING SUPERVISOR.
[2017-04-23] MEDS: Terazosin HCl 5 MG CAP PO SCH (21:16)
[2017-04-23] MEDS: Finasteride 5 MG TAB PO SCH (21:16)
[2017-04-23] MEDS: Aspirin 81 mg Enteric Coated Tablet PO SCH (21:16)
[2017-04-23] MEDS: Melatonin 3 MG TAB PO SCH (22:00)
--- NOTE | 2017-04-23 23:00 | PRG ---
DATE OF SERVICE: 04/23/2017 SUBJECTIVE: Patient was seen and examined at bedside and overnight events noted. Patient denies any shortness of breath or chest pain or palpitation. No history of nausea or vomiting or diarrhea or f ever or chills or cramps. OBJECTIVE: GENERAL: This is an elderly male, in no apparent distress. VITAL SIGNS: Temperature 96.9, pulse 77, respiratory rate 18 and blood pressure 94/55. HEENT: Atraumatic, normocephalic. Oral mucosa is moist. NECK: Supple. CARDIOVASCULAR: S1, S2 heard. Rate and rhythm regular. RESPIRATORY: Clear to auscultation. GASTROINTESTINAL: Abdomen is soft. MUSCULOSKELETAL: No tenderness, no edema. DERMATOLOGIC: No skin rash. NEUROLOGIC: Alert and awake and oriented x3. No focal neurologic deficits. Moving all the extremit ies. PSYCHIATRIC: Mood and affect normal. LABORATORY DATA: Potassium is 3.4, BUN is 72, creatinine is 1.8. ASSESSMENT AND PLAN: 1. Acute kidney injury on chronic kidney disease with volume depletion. Creatinine is better today. We will continue on reduced dose of Lasix. 2. . 3. Leukocytosis, anemia. 4. Edema. 5. Cardiorenal syndrome. 6. Hypokalemia, replace and monitor. Replace potassium and monitor labs. Creatinine seems to be be tter. Continue on Lasix 80 mg IV daily. We will follow up. Followup with Cardiology. Continue optimization with cardiac medications.
[2017-04-24] MEDS: Furosemide 100 MG/10 ML VIAL SLOW IVP SCH (05:21)
[2017-04-24] MEDS: Ciprofloxacin 500 MG TAB PO SCH ×2 (05:21→21:01)
[2017-04-24 05:33] LABS: Anion Gap 15 mmol/L (10-20); BUN (Urea Nitrogen) 68 mg/dL (8.4-25.7); Calc. Creatinine Clearance 33 mL/min (70-130); Calcium 9.2 mg/dL (7.8-10.44); Carbon Dioxide 33 mmol/L (23-31); Chloride 96 mmol/L (98-107); Estimated GFR-MDRD 41; Glucose 117 mg/dL (83-110); Potassium 3.9 mmol/L (3.5-5.1); Sodium 140 mmol/L (136-145)
[2017-04-24 06:00] LABS: Band 26 % (5-11); Eosinophils 1 % (0-10); Hemoglobin 12.4 g/dL (14.0-18.0); Lymphocytes 12 % (21-51); MDiff Complete? YES; Mean Corpuscular HGB CONC 31.1 g/dL (32.0-36.0); Mean Corpuscular Volume 96.5 fl (80.0-94.0); Mean Platelet Volume 9.3 fL (7.4-10.4); Monocytes 10 % (0-10); Neutrophil 51 % (42-75); PLT Morphology Comment Appears Adequate; Platelet Count 129 thou/uL (130-400); RBC Distribution Width 13.1 % (11.5-14.5); Red Blood Cell (RBC) Count 4.12 mill/uL (4.70-6.10); White Blood Cell (WBC) Count 9.2 thou/uL (4.8-10.8)
[2017-04-24] MEDS: Nitroglycerin 2% Ointment 1 INCH/1 GM Packet TOP SCH ×3 (06:50→21:08)
[2017-04-24] MEDS: Clopidogrel Bisulfate 75 MG TAB PO SCH (09:11)
[2017-04-24] MEDS: Vit A,C & E/Lutein/Minerals Tablet PO SCH ×2 (09:11→21:01)
[2017-04-24] MEDS: Enoxaparin Sodium 40 MG/0.4 ML SYRINGE SC SCH (09:12)
[2017-04-24] MEDS: Famotidine 20 MG TAB PO SCH (09:12)
[2017-04-24] MEDS: Carvedilol 6.25 MG TAB PO SCH ×2 (09:16→21:01)
[2017-04-24] MEDS ORDERED: Haloperidol Lactate 5 MG/ML VIAL SLOW IVP PRN (11:13)
--- NOTE | 2017-04-24 11:49 | PQF ---
CLINICAL DOCUMENTATION IMPROVEMENT CLARIFICATION FORM: ICD-10 Updated PLEASE DO AN ADDENDUM TO THE PROGRESS NOTE WITH ANY DOCUMENTATION UPDATES OR ADDITIONS AND CARRY THROUGH TO DC SUMMARY. THANK YOU. DATE: 04/24/2017 ATTN: DR. LISSETT TURNER Please exercise your independent, professional judgment in responding to the clarification form. Clinical indicators are provided on the bottom of this form for your review Please check appropriate box(s): [ X ] Sepsis due to: (Pna, UTI, gangrenous gall bladder, etc.) ___E. coli UTI___ [ ] Severe sepsis with acute organ dysfunction of: (Examples: respiratory failure, encephalopathy, acute kidney failure, other) [ ] Localized infection without sepsis [ ] Other diagnosis [ ] Unable to determine In addition, please specify: Present on Admission (POA): [ X ] Yes [ ] No [ ] Unable to determine For continuity of documentation, please document condition throughout progress notes and discharge summary. Thank You. CLINICAL INDICATORS - SIGNS / SYMPTOMS / LABS ER [id number]: T: 100.1 RR: 18-28 WBC: 18.9 ACUTE KIDNEY INJURY UTI (E COLI) TREATMENT IN ER 04/20: IV LASIX & IV ROCEPHIN TEMP MAX W/IN 24 HRS ADMIT: 101.3 (04/21) RISK FACTORS: UTI (E COLI) ADVANCED AGE (87) FABIOLA TREATMENTS: TELEMETRY MONITORING IV ANTIBIOTIC (ROCEPHIN 04/20) PO ANTIBIOTIC (CIPRO 04/20 - PRESENT) THANK YOU! Marian (This form is maintained as a part of the permanent medical record) 2014 [employer]. All Rights Reserved Marian Hearn RN, BSN [email or web address] Office: [phone] [facility]
--- NOTE | 2017-04-24 13:41 | PDOC.PN ---
- Subjective Encounter Start Date: 04/24/17 Encounter Start Time: 16:00 Subjective: SOB improved, breathing much easier even off O2 for the past -: 10 minutes. Diuresing well per but weight unchanged. - Objective Resuscitation Status: Resuscitation Status DNR:Do Not Resuscitate MAR Reviewed: Yes Vital Signs & Weight: Vital Signs (12 hours) Temp Pulse Resp BP BP Pulse Ox 04/24/17 12:00 93 19 110/65 93 L 04/24/17 08:00 97.7 F 80 17 93 L 04/24/17 07:20 97.7 F 80 17 116/61 93 L 04/24/17 05:18 20 120/68 04/24/17 04:00 98.0 F 84 16 106/67 96 Weight Weight 162 lb 3.2 oz I&O: 04/23/17 04/24/17 04/25/17 06:59 06:59 06:59 Intake Total 1470 1588 Output Total 450 Balance 1020 1588 Result Diagrams: 04/24/17 04:47 04/24/17 04:47 Phys Exam - Physical Examination Constitutional: NAD HEENT: moist MMs Respiratory: no wheezing, no rales, no rhonchi Cardiovascular: RRR Gastrointestinal: soft, positive bowel sounds Neurological: non-focal, moves all 4 limbs Psychiatric: normal affect Deviation from normal: very hard of hearing Dx/Plan (1) FABIOLA (acute kidney injury) Code(s): N17.9 - ACUTE KIDNEY FAILURE, UNSPECIFIED Status: Acute Comment: Cardiorenal syndrome, diuretics decreased, potassium repleted, holding ARB for now (2) CHF exacerbation Code(s): I50.9 - HEART FAILURE, UNSPECIFIED Status: Acute Qualifiers: Congestive heart failure type: systolic Qualified Code(s): I50.23 - Acute on chronic systolic (congestive) heart failure Comment: EF 20-25% (3) Demand ischemia of myocardium Code(s): I24.8 - OTHER FORMS OF ACUTE ISCHEMIC HEART DISEASE Status: Acute (4) Afib Code(s): I48.91 - UNSPECIFIED ATRIAL FIBRILLATION Status: Chronic Qualifiers: Atrial fibrillation type: chronic Qualified Code(s): I48.2 - Chronic atrial fibrillation (5) CAD (coronary artery disease) Code(s): I25.10 - ATHSCL HEART DISEASE OF [place] CORONARY ARTERY W/O ANG PCTRS Status: Chronic Qualifiers: Coronary Disease-Associated Artery/Lesion type: [place] artery [place] vs. transplanted heart: [place] Associated angina: with stable angina Qualified Code(s): I25.118 - Atherosclerotic heart disease of [place] coronary artery with other forms of angina pectoris (6) CKD (chronic kidney disease) Code(s): N18.9 - CHRONIC KIDNEY DISEASE, UNSPECIFIED Status: Chronic Qualifiers: Chronic kidney disease stage: stage 3 (moderate) Qualified Code(s): N18.3 - Chronic kidney disease, stage 3 (moderate) (7) Dyslipidemia Code(s): E78.5 - HYPERLIPIDEMIA, UNSPECIFIED Status: Chronic (8) HTN (hypertension) Code(s): I10 - ESSENTIAL (PRIMARY) HYPERTENSION Status: Chronic Qualifiers: Hypertension type: essential hypertension Qualified Code(s): I10 - Essential (primary) hypertension (9) UTI (urinary tract infection) Status: Acute Qualifiers: Urinary tract infection type: acute cystitis Comment: E. coli pansensitive, on Cipro (10) Sepsis Code(s): A41.9 - SEPSIS, UNSPECIFIED ORGANISM Status: Resolved Qualifiers: Sepsis type: Escherichia coli Qualified Code(s): A41.51 - Sepsis due to Escherichia coli [E. coli] Comment: Patient fullfilled criteria for sepsis on admission with UTI, now resolved after antibiotics. (11) Hypokalemia Code(s): E87.6 - HYPOKALEMIA Status: Resolved - Plan cont current plan of care, continue antibiotics, DVT proph w/lovenox * . - Discharge Day Encounter end time: 16:30
[2017-04-24] MEDS: Aspirin 81 mg Enteric Coated Tablet PO SCH (21:01)
[2017-04-24] MEDS: Terazosin HCl 5 MG CAP PO SCH (21:01)
[2017-04-24] MEDS: Melatonin 3 MG TAB PO SCH (21:01)
[2017-04-24] MEDS: Finasteride 5 MG TAB PO SCH (21:02)
--- NOTE | 2017-04-25 00:19 | PRG ---
DATE OF SERVICE: 04/24/2017 SUBJECTIVE: The patient is a very confused elderly male seen at the bedside. OBJECTIVE: GENERAL: This is an elderly male, very confused. VITAL SIGNS: Temperature 97.7, pulse 80, respiratory rate 17, blood pressure 110/64. HEENT: Atraumatic, normocephalic, oral mucosa is moist. NECK: Supple. CARDIOVASCULAR: S1, S2 heard, rate and rhythm regular. RESPIRATORY: Clear to auscultation. GASTROINTESTINAL: Abdomen is soft. MUSCULOSKELETAL: No tenderness, no edema. DERMATOLOGIC: No skin rash. NEUROLOGIC: Confused. PSYCHIATRIC: Mood and affect normal. LABORATORY DATA: Potassium is 3.9, BUN is 68, creatinine is 1.5. ASSESSMENT AND PLAN: 1. Acute kidney injury. Renal function is better. Continue on reduced dose of Lasix. Creatinine i s close to baseline. His baseline is around 1.3. 2. Leukocytosis. 3. Anemia. 4. Edema. 5. Cardiorenal syndrome. 6. Altered mentation. 7. Hypokalemia, better and replaced as tolerated. 8. Renal function is better. Continue current dose of medication and follow with Cardiology team.
[2017-04-25] MEDS ORDERED: Sterile Water 10 ML VIAL FS SCH (02:00)
[2017-04-25] MEDS ORDERED: Ziprasidone 20 MG VIAL IM SCH (02:00)
[2017-04-25] MEDS: Ciprofloxacin 500 MG TAB PO SCH ×2 (06:02→22:01)
[2017-04-25] MEDS: Nitroglycerin 2% Ointment 1 INCH/1 GM Packet TOP SCH ×3 (06:03→22:02)
[2017-04-25 07:12] LABS: Anion Gap 16 mmol/L (10-20); BUN (Urea Nitrogen) 65 mg/dL (8.4-25.7); Calc. Creatinine Clearance 32 mL/min (70-130); Calcium 9.9 mg/dL (7.8-10.44); Carbon Dioxide 35 mmol/L (23-31); Chloride 95 mmol/L (98-107); Estimated GFR-MDRD 42; Glucose 127 mg/dL (83-110); Potassium 3.9 mmol/L (3.5-5.1); Sodium 142 mmol/L (136-145)
[2017-04-25] MEDS ORDERED: Furosemide 100 MG/10 ML VIAL SLOW IVP SCH (08:00)
[2017-04-25] MEDS: Carvedilol 6.25 MG TAB PO SCH ×2 (08:49→22:02)
[2017-04-25] MEDS: Enoxaparin Sodium 40 MG/0.4 ML SYRINGE SC SCH (08:49)
[2017-04-25] MEDS: Clopidogrel Bisulfate 75 MG TAB PO SCH (08:51)
[2017-04-25] MEDS: Vit A,C & E/Lutein/Minerals Tablet PO SCH ×2 (08:51→22:01)
[2017-04-25] MEDS: Famotidine 20 MG TAB PO SCH (08:51)
--- NOTE | 2017-04-25 09:11 | PDOC.PN ---
- Subjective Encounter Start Date: 04/25/17 Encounter Start Time: 10:00 Subjective: Patient agitated and not sleepying. Wandering halls and going into other -: patient rooms. Hard to redirect, though better when hearing aides in. - Objective Resuscitation Status: Resuscitation Status DNR:Do Not Resuscitate MAR Reviewed: Yes Vital Signs & Weight: Vital Signs (12 hours) Pulse Resp BP BP Pulse Ox 04/25/17 08:49 123/75 04/25/17 08:24 86 18 123/75 93 L 04/25/17 04:00 88 13 114/59 L 95 04/25/17 00:01 20 90 L Weight Weight 156 lb 8 oz I&O: 04/24/17 04/25/17 04/26/17 06:59 06:59 06:59 Intake Total 1588 610 Balance 1588 610 Result Diagrams: 04/24/17 04:47 04/25/17 06:47 Phys Exam - Physical Examination Constitutional: NAD HEENT: moist MMs Respiratory: no wheezing, no rales, no rhonchi Cardiovascular: RRR Gastrointestinal: soft, positive bowel sounds Neurological: non-focal, moves all 4 limbs Deviation from normal: oriented to person, not to situation, confused Dx/Plan (1) FABIOLA (acute kidney injury) Code(s): N17.9 - ACUTE KIDNEY FAILURE, UNSPECIFIED Status: Acute Comment: Cardiorenal syndrome, diuretics decreased, potassium repleted, holding ARB for now (2) CHF exacerbation Code(s): I50.9 - HEART FAILURE, UNSPECIFIED Status: Acute Qualifiers: Congestive heart failure type: systolic Qualified Code(s): I50.23 - Acute on chronic systolic (congestive) heart failure Comment: EF 20-25% (3) Demand ischemia of myocardium Code(s): I24.8 - OTHER FORMS OF ACUTE ISCHEMIC HEART DISEASE Status: Acute (4) Afib Code(s): I48.91 - UNSPECIFIED ATRIAL FIBRILLATION Status: Chronic Qualifiers: Atrial fibrillation type: chronic Qualified Code(s): I48.2 - Chronic atrial fibrillation (5) CAD (coronary artery disease) Code(s): I25.10 - ATHSCL HEART DISEASE OF [place] CORONARY ARTERY W/O ANG PCTRS Status: Chronic Qualifiers: Coronary Disease-Associated Artery/Lesion type: [place] artery [place] vs. transplanted heart: [place] heart Associated angina: with stable angina Qualified Code(s): I25.118 - Atherosclerotic heart disease of [place] coronary artery with other forms of angina pectoris (6) CKD (chronic kidney disease) Code(s): N18.9 - CHRONIC KIDNEY DISEASE, UNSPECIFIED Status: Chronic Qualifiers: Chronic kidney disease stage: stage 3 (moderate) Qualified Code(s): N18.3 - Chronic kidney disease, stage 3 (moderate) (7) Dyslipidemia Code(s): E78.5 - HYPERLIPIDEMIA, UNSPECIFIED Status: Chronic (8) HTN (hypertension) Code(s): I10 - ESSENTIAL (PRIMARY) HYPERTENSION Status: Chronic Qualifiers: Hypertension type: essential hypertension Qualified Code(s): I10 - Essential (primary) hypertension (9) UTI (urinary tract infection) Status: Acute Qualifiers: Urinary tract infection type: acute cystitis Comment: E. coli pansensitive, on Cipro (10) Sepsis Code(s): A41.9 - SEPSIS, UNSPECIFIED ORGANISM Status: Resolved Qualifiers: Sepsis type: Escherichia coli Qualified Code(s): A41.51 - Sepsis due to Escherichia coli [E. coli] Comment: Patient fullfilled criteria for sepsis on admission with UTI, now resolved after antibiotics. (11) Hypokalemia Code(s): E87.6 - HYPOKALEMIA Status: Resolved (12) Delirium Code(s): R41.0 - DISORIENTATION, UNSPECIFIED Status: Acute Comment: Hospital acquired, will increase evening Haldol and try to get patient back on sleep schedule. - Plan cont current plan of care, continue antibiotics, PT/OT, social media marketer Patient improved from CHF standpoint. Is confused and hard to redirect, but -: alot of that may be cannot hear at all. Will need rehab vs. PT/OT once -: cleared to go by cardiology and hospital delirium controlled. * . - Discharge Day Encounter end time: 10:30
[2017-04-25] MEDS ORDERED: Digoxin 0.5 MG/2 ML AMP SLOW IVP SCH (11:15)
[2017-04-25] MEDS: Haloperidol Lactate 5 MG/ML VIAL SLOW IVP PRN ×2 (14:13→22:52)
[2017-04-25] MEDS: Melatonin 3 MG TAB PO SCH (22:01)
[2017-04-25] MEDS: Terazosin HCl 5 MG CAP PO SCH (22:01)
[2017-04-25] MEDS: Aspirin 81 mg Enteric Coated Tablet PO SCH (22:01)
[2017-04-25] MEDS: Finasteride 5 MG TAB PO SCH (22:02)
--- NOTE | 2017-04-25 23:03 | PRG ---
DATE OF SERVICE: 04/25/2017 SUBJECTIVE: Patient was seen and examined at bedside and overnight events noted. Patient denies any shortness of breath or chest pain or palpitation. No history of nausea or vomiting or diarrhea or f ever or chills or cramps. OBJECTIVE: GENERAL: This is an elderly male, slightly confused. VITAL SIGNS: Temperature 98.5, pulse 115, respiratory 18, blood pressure 128/79. HEENT: Atraumatic, normocephalic. Oral mucosa is moist. NECK: Supple. CARDIOVASCULAR: S1, S2 heard. Rate and rhythm regular. RESPIRATORY: Clear to auscultation. GASTROINTESTINAL: Abdomen is soft. MUSCULOSKELETAL: 1+ edema. DERMATOLOGIC: No skin rash. NEUROLOGIC: Slightly confused. PSYCHIATRIC: Mood and affect normal. LABORATORY DATA: Creatinine is 1.5. ASSESSMENT AND PLAN: 1. Acute kidney injury, stable. 2. Anemia 3. Edema. 4. Cardiorenal syndrome. 5. Altered mentation. 6. Hypokalemia, replaced. Overall prognosis is guarded. We will follow. Avoid nephrotoxins.
[2017-04-26] MEDS: HYDROcodone/Acetaminophen 5/325 mg Tablet PO PRN ×2 (01:59→19:39)
[2017-04-26] MEDS: Haloperidol Lactate 5 MG/ML VIAL SLOW IVP PRN (03:57)
[2017-04-26 06:42] LABS: Anion Gap 16 mmol/L (10-20); BUN (Urea Nitrogen) 66 mg/dL (8.4-25.7); Calc. Creatinine Clearance 34 mL/min (70-130); Calcium 9.7 mg/dL (7.8-10.44); Carbon Dioxide 36 mmol/L (23-31); Chloride 95 mmol/L (98-107); Estimated GFR-MDRD 44; Glucose 157 mg/dL (83-110); Potassium 3.5 mmol/L (3.5-5.1); Sodium 143 mmol/L (136-145)
[2017-04-26] MEDS: Nitroglycerin 2% Ointment 1 INCH/1 GM Packet TOP SCH ×3 (06:42→22:35)
--- NOTE | 2017-04-26 07:49 | PDOC.PN ---
- Subjective Encounter Start Date: 04/26/17 Encounter Start Time: 08:30 Subjective: Patient agitated all night. Increased dose of Haldol ineffective. No other -: changes. - Objective Resuscitation Status: Resuscitation Status DNR:Do Not Resuscitate MAR Reviewed: Yes Vital Signs & Weight: Vital Signs (12 hours) Temp Pulse Resp BP BP Pulse Ox 04/26/17 04:00 96.2 F L 85 19 131/72 93 L 04/26/17 00:20 83 16 123/82 97 04/25/17 22:02 137/66 04/25/17 20:40 97.4 F L 88 18 96 Weight Weight 156 lb 8 oz I&O: 04/25/17 04/26/17 04/27/17 06:59 06:59 06:59 Intake Total 610 Balance 610 Result Diagrams: 04/24/17 04:47 04/26/17 05:40 Phys Exam - Physical Examination agitated, pulling at sheets HEENT: moist MMs Respiratory: no wheezing, no rales, no rhonchi Cardiovascular: no significant murmur, irregular Gastrointestinal: soft, positive bowel sounds Musculoskeletal: no edema Neurological: non-focal, moves all 4 limbs Deviation from normal: agitated, won't leave hearing aide in so can't answer questions Dx/Plan (1) FABIOLA (acute kidney injury) Code(s): N17.9 - ACUTE KIDNEY FAILURE, UNSPECIFIED Status: Acute Comment: Cardiorenal syndrome, diuretics decreased, potassium repleted, holding ARB for now (2) CHF exacerbation Code(s): I50.9 - HEART FAILURE, UNSPECIFIED Status: Acute Qualifiers: Congestive heart failure type: systolic Qualified Code(s): I50.23 - Acute on chronic systolic (congestive) heart failure Comment: EF 20-25% (3) Demand ischemia of myocardium Code(s): I24.8 - OTHER FORMS OF ACUTE ISCHEMIC HEART DISEASE Status: Acute (4) Afib Code(s): I48.91 - UNSPECIFIED ATRIAL FIBRILLATION Status: Chronic Qualifiers: Atrial fibrillation type: chronic Qualified Code(s): I48.2 - Chronic atrial fibrillation (5) CAD (coronary artery disease) Code(s): I25.10 - ATHSCL HEART DISEASE OF [place] CORONARY ARTERY W/O ANG PCTRS Status: Chronic Qualifiers: Coronary Disease-Associated Artery/Lesion type: [place] artery [place] vs. transplanted heart: [place] heart Associated angina: with stable angina Qualified Code(s): I25.118 - Atherosclerotic heart disease of [place] coronary artery with other forms of angina pectoris (6) CKD (chronic kidney disease) Code(s): N18.9 - CHRONIC KIDNEY DISEASE, UNSPECIFIED Status: Chronic Qualifiers: Chronic kidney disease stage: stage 3 (moderate) Qualified Code(s): N18.3 - Chronic kidney disease, stage 3 (moderate) (7) Dyslipidemia Code(s): E78.5 - HYPERLIPIDEMIA, UNSPECIFIED Status: Chronic (8) HTN (hypertension) Code(s): I10 - ESSENTIAL (PRIMARY) HYPERTENSION Status: Chronic Qualifiers: Hypertension type: essential hypertension Qualified Code(s): I10 - Essential (primary) hypertension (9) UTI (urinary tract infection) Status: Acute Qualifiers: Urinary tract infection type: acute cystitis Comment: E. coli pansensitive, on Cipro (10) Sepsis Code(s): A41.9 - SEPSIS, UNSPECIFIED ORGANISM Status: Resolved Qualifiers: Sepsis type: Escherichia coli Qualified Code(s): A41.51 - Sepsis due to Escherichia coli [E. coli] Comment: Patient fullfilled criteria for sepsis on admission with UTI, now resolved after antibiotics. (11) Hypokalemia Code(s): E87.6 - HYPOKALEMIA Status: Resolved (12) Delirium Code(s): R41.0 - DISORIENTATION, UNSPECIFIED Status: Acute Comment: Hospital acquired due to unable to sleep, Haldol ineffective, will d/c and try Seroquel - Plan cont current plan of care, PT/OT, forensic social worker Treat delirium, if can improve in orientation wants to take him home. * . - Discharge Day Encounter end time: 09:00
[2017-04-26] MEDS ORDERED: Lorazepam 0.5 MG TAB PO PRN (08:54)
[2017-04-26] MEDS: Clopidogrel Bisulfate 75 MG TAB PO SCH (15:48)
[2017-04-26] MEDS: Ciprofloxacin 500 MG TAB PO SCH ×2 (15:48→22:41)
[2017-04-26] MEDS: Carvedilol 6.25 MG TAB PO SCH ×2 (15:48→22:41)
[2017-04-26] MEDS: Enoxaparin Sodium 40 MG/0.4 ML SYRINGE SC SCH (15:49)
[2017-04-26] MEDS: Famotidine 20 MG TAB PO SCH (15:49)
[2017-04-26] MEDS: Digoxin 0.125 MG TAB PO SCH (15:49)
[2017-04-26] MEDS: Torsemide 20 MG TAB PO SCH (15:50)
[2017-04-26] MEDS: Vit A,C & E/Lutein/Minerals Tablet PO SCH ×2 (15:50→22:42)
[2017-04-26] MEDS ORDERED: Lorazepam 2 MG/ML VIAL SLOW IVP PRN (16:33)
--- NOTE | 2017-04-26 22:38 | PRG ---
DATE OF SERVICE: 04/26/2017 SUBJECTIVE: The patient remains confused. Family at the bedside. OBJECTIVE: VITAL SIGNS: Temperature 96.2, pulse 88, respiratory rate 20, blood pressure 140/63. NEUROLOGIC: Confused. Musculoskeletal : No tenderness, No edema HEENT: Atraumatic normocephalic Neck: Supple Cardiovascular: S1S2 heard, Rate and rhythm regular Respiratory: Clear to auscultation Gastrointestinal: Abdomen is soft Dermatologic : No skin rash Psychiatric: Mood and affect normal LABORATORY DATA: Potassium is 3.5, BUN is 66, creatinine is 1.4. ASSESSMENT: 1. Acute kidney injury on chronic kidney disease. Renal function continues to get better. Continue on reduced dose of Lasix. 2. Altered mentation with delirium. 3. Anemia. 4. Edema. 5. Cardiorenal syndrome. 6. Altered mentation. 7. Hypokalemia, replaced. PLAN: Continue to replace electrolytes. Potassium level is stable. We will follow. MTDD
[2017-04-26] MEDS: Aspirin 81 mg Enteric Coated Tablet PO SCH (22:41)
[2017-04-26] MEDS: Melatonin 3 MG TAB PO SCH (22:41)
[2017-04-26] MEDS: Finasteride 5 MG TAB PO SCH (22:41)
[2017-04-26] MEDS: Terazosin HCl 5 MG CAP PO SCH (22:41)
[2017-04-27 06:48] LABS: Anion Gap 18 mmol/L (10-20); BUN (Urea Nitrogen) 53 mg/dL (8.4-25.7); Calc. Creatinine Clearance 42 mL/min (70-130); Carbon Dioxide 36 mmol/L (23-31); Chloride 97 mmol/L (98-107); Estimated GFR-MDRD 58; Glucose 136 mg/dL (83-110); Potassium 3.5 mmol/L (3.5-5.1); Sodium 147 mmol/L (136-145)
[2017-04-27] MEDS: Ciprofloxacin 500 MG TAB PO SCH ×2 (07:33→21:35)
[2017-04-27] MEDS: Nitroglycerin 2% Ointment 1 INCH/1 GM Packet TOP SCH ×3 (07:34→21:44)
[2017-04-27] MEDS: Clopidogrel Bisulfate 75 MG TAB PO SCH (08:21)
[2017-04-27] MEDS: Carvedilol 6.25 MG TAB PO SCH ×2 (08:21→21:35)
[2017-04-27] MEDS: Digoxin 0.125 MG TAB PO SCH (08:21)
[2017-04-27] MEDS: Torsemide 20 MG TAB PO SCH (08:21)
[2017-04-27] MEDS: Enoxaparin Sodium 40 MG/0.4 ML SYRINGE SC SCH (08:21)
[2017-04-27] MEDS: Famotidine 20 MG TAB PO SCH (08:27)
[2017-04-27] MEDS: Vit A,C & E/Lutein/Minerals Tablet PO SCH ×2 (08:27→21:38)
--- NOTE | 2017-04-27 09:22 | PRG ---
DATE OF SERVICE: 04/27/2017 SUBJECTIVE: An 87-year-old gentleman being seen for acute kidney injury. The patient denies any les sea, vomiting or chest pain. PHYSICAL EXAMINATION: GENERAL: Patient is very somnolent. GENERAL: The patient is resting. VITAL SIGNS: Afebrile, pulse 91, breathing at 16, blood pressure 136/59. HEAD/NECK: Normocephalic. Atraumatic. EYES: EOMI. No deformity. EARS: Clear. No ulcers. NOSE: Intact. No lesions. MOUTH: Clear. No discharge. THROAT: Clear. No exudate. LUNGS: Clear. No crackles. CARDIAC: S1, S2. No rub. ABDOMEN: Benign. BS+. GENITALIA/RECTUM: Leo absent. BACK/EXTREMITIES: Edema 0+ Ulcer- NEUROLOGICAL: Alert and motor intact. SKIN: Rash- Bruise- LYMPHATICS: Edema- Ulcer- LABORATORY DATA: Show hemoglobin 12.4, creatinine 1.1. RECOMMENDATIONS: 1. Acute kidney injury, improved. 2. Hypertension, stable. 3. Anemia, stable. 4. Hypernatremia. Recommend increased free water. I will sign off on this patient. Please reconsu lt as needed.
--- NOTE | 2017-04-27 09:24 | PDOC.PN ---
- Subjective Encounter Start Date: 04/27/17 Encounter Start Time: 09:22 Subjective: Seen and examined -still somewhat confused - Objective Resuscitation Status: Resuscitation Status DNR:Do Not Resuscitate Vital Signs & Weight: Vital Signs (12 hours) Temp Pulse Resp BP BP Pulse Ox 04/27/17 08:21 91 136/59 L 04/27/17 08:00 97.7 F 91 26 H 136/59 L 92 L 04/27/17 04:50 90 L 04/27/17 04:00 96.0 F L 91 20 138/77 96 04/27/17 00:10 88 20 123/88 91 L Weight Weight 153 lb 12.8 oz I&O: 04/26/17 04/27/17 04/28/17 06:59 06:59 06:59 Intake Total 360 480 Balance 360 480 Result Diagrams: 04/24/17 04:47 04/27/17 05:49 Phys Exam - Physical Examination Constitutional: NAD HEENT: PERRLA, moist MMs, sclera anicteric, TM's clear Neck: no nodes, no JVD, supple, full ROM Respiratory: no wheezing, no rales, no rhonchi, clear to auscultation bilateral Cardiovascular: RRR, no significant murmur, no rub Gastrointestinal: soft, non-tender, no distention, positive bowel sounds Musculoskeletal: no edema, pulses present Dx/Plan (1) FABIOLA (acute kidney injury) Code(s): N17.9 - ACUTE KIDNEY FAILURE, UNSPECIFIED Status: Acute Comment: Cardiorenal syndrome, diuretics decreased, potassium repleted, holding ARB for now (2) CHF exacerbation Code(s): I50.9 - HEART FAILURE, UNSPECIFIED Status: Acute Qualifiers: Congestive heart failure type: systolic Qualified Code(s): I50.23 - Acute on chronic systolic (congestive) heart failure Comment: EF 20-25% (3) Demand ischemia of myocardium Code(s): I24.8 - OTHER FORMS OF ACUTE ISCHEMIC HEART DISEASE Status: Acute (4) Afib Code(s): I48.91 - UNSPECIFIED ATRIAL FIBRILLATION Status: Chronic Qualifiers: Atrial fibrillation type: chronic Qualified Code(s): I48.2 - Chronic atrial fibrillation (5) CAD (coronary artery disease) Code(s): I25.10 - ATHSCL HEART DISEASE OF [place] CORONARY ARTERY W/O ANG PCTRS Status: Chronic Qualifiers: Coronary Disease-Associated Artery/Lesion type: [place] artery [place] vs. transplanted heart: [place] heart Associated angina: with stable angina Qualified Code(s): I25.118 - Atherosclerotic heart disease of [place] coronary artery with other forms of angina pectoris (6) CKD (chronic kidney disease) Code(s): N18.9 - CHRONIC KIDNEY DISEASE, UNSPECIFIED Status: Chronic Qualifiers: Chronic kidney disease stage: stage 3 (moderate) Qualified Code(s): N18.3 - Chronic kidney disease, stage 3 (moderate) (7) Dyslipidemia Code(s): E78.5 - HYPERLIPIDEMIA, UNSPECIFIED Status: Chronic (8) HTN (hypertension) Code(s): I10 - ESSENTIAL (PRIMARY) HYPERTENSION Status: Chronic Qualifiers: Hypertension type: essential hypertension Qualified Code(s): I10 - Essential (primary) hypertension - Plan plan discussed w/ family, PT/OT, social work coordinator Awaiting Rehab vs SNF placement -: If mental status improves may want to take him home -: Avoid meds that can alter hos mentation -: continue seroquel * .
[2017-04-27] MEDS: HYDROcodone/Acetaminophen 5/325 mg Tablet PO PRN (14:01)
[2017-04-27] MEDS: Aspirin 81 mg Enteric Coated Tablet PO SCH (21:35)
[2017-04-27] MEDS: Melatonin 3 MG TAB PO SCH (21:35)
[2017-04-27] MEDS: Finasteride 5 MG TAB PO SCH (21:35)
[2017-04-27] MEDS: Terazosin HCl 5 MG CAP PO SCH (21:36)
[2017-04-27] MEDS: Morphine 4 MG/ML VIAL SLOW IVP PRN (21:37)
[2017-04-28] MEDS: Nitroglycerin 2% Ointment 1 INCH/1 GM Packet TOP SCH ×3 (05:59→21:30)
[2017-04-28] MEDS: Ciprofloxacin 500 MG TAB PO SCH ×2 (05:59→21:32)
[2017-04-28 06:06] LABS: Anion Gap 19 mmol/L (10-20); BUN (Urea Nitrogen) 55 mg/dL (8.4-25.7); Calc. Creatinine Clearance 32 mL/min (70-130); Calcium 9.8 mg/dL (7.8-10.44); Carbon Dioxide 33 mmol/L (23-31); Chloride 100 mmol/L (98-107); Estimated GFR-MDRD 49; Glucose 128 mg/dL (83-110); Potassium 3.2 mmol/L (3.5-5.1); Sodium 149 mmol/L (136-145)
[2017-04-28] MEDS: Clopidogrel Bisulfate 75 MG TAB PO SCH (10:02)
[2017-04-28] MEDS: Famotidine 20 MG TAB PO SCH (10:02)
[2017-04-28] MEDS: Carvedilol 6.25 MG TAB PO SCH ×2 (10:02→21:32)
[2017-04-28] MEDS: Digoxin 0.125 MG TAB PO SCH (10:02)
[2017-04-28] MEDS: Enoxaparin Sodium 40 MG/0.4 ML SYRINGE SC SCH (10:03)
[2017-04-28] MEDS: Vit A,C & E/Lutein/Minerals Tablet PO SCH ×2 (10:03→21:31)
[2017-04-28] MEDS ORDERED: Dextrose 5% in Water 1,000 ML IV SCH (10:30)
--- NOTE | 2017-04-28 11:48 | PDOC.PN ---
- Subjective Encounter Start Date: 04/28/17 Encounter Start Time: 11:46 Subjective: Seen and examined with no new complaint - Objective Resuscitation Status: Resuscitation Status DNR:Do Not Resuscitate Vital Signs & Weight: Vital Signs (12 hours) Temp Pulse Resp BP Pulse Ox 04/28/17 10:02 92 04/28/17 08:20 96.2 F L 92 20 137/82 98 04/28/17 04:00 97.2 F L 83 18 136/85 94 L 04/28/17 00:00 97.2 F L 89 19 138/67 92 L Weight Weight 137 lb I&O: 04/27/17 04/28/17 04/29/17 06:59 06:59 06:59 Intake Total 480 120 Balance 480 120 Result Diagrams: 04/24/17 04:47 04/28/17 05:12 Phys Exam - Physical Examination Constitutional: NAD HEENT: PERRLA, sclera anicteric, TM's clear Neck: no nodes, no JVD, supple, full ROM Respiratory: no wheezing, no rales, no rhonchi, clear to auscultation bilateral Cardiovascular: RRR, no significant murmur, no rub Gastrointestinal: soft, non-tender, positive bowel sounds Musculoskeletal: no edema, pulses present Dx/Plan (1) FABIOLA (acute kidney injury) Code(s): N17.9 - ACUTE KIDNEY FAILURE, UNSPECIFIED Status: Acute Comment: Cardiorenal syndrome, diuretics decreased, potassium repleted, holding ARB for now (2) CHF exacerbation Code(s): I50.9 - HEART FAILURE, UNSPECIFIED Status: Acute Qualifiers: Congestive heart failure type: systolic Qualified Code(s): I50.23 - Acute on chronic systolic (congestive) heart failure Comment: EF 20-25% (3) Demand ischemia of myocardium Code(s): I24.8 - OTHER FORMS OF ACUTE ISCHEMIC HEART DISEASE Status: Acute (4) Afib Code(s): I48.91 - UNSPECIFIED ATRIAL FIBRILLATION Status: Chronic Qualifiers: Atrial fibrillation type: chronic Qualified Code(s): I48.2 - Chronic atrial fibrillation (5) CAD (coronary artery disease) Code(s): I25.10 - ATHSCL HEART DISEASE OF [place] CORONARY ARTERY W/O ANG PCTRS Status: Chronic Qualifiers: Coronary Disease-Associated Artery/Lesion type: [place] artery [place] vs. transplanted heart: [place] heart Associated angina: with stable angina Qualified Code(s): I25.118 - Atherosclerotic heart disease of [place] coronary artery with other forms of angina pectoris (6) CKD (chronic kidney disease) Code(s): N18.9 - CHRONIC KIDNEY DISEASE, UNSPECIFIED Status: Chronic Qualifiers: Chronic kidney disease stage: stage 3 (moderate) Qualified Code(s): N18.3 - Chronic kidney disease, stage 3 (moderate) (7) Dyslipidemia Code(s): E78.5 - HYPERLIPIDEMIA, UNSPECIFIED Status: Chronic (8) HTN (hypertension) Code(s): I10 - ESSENTIAL (PRIMARY) HYPERTENSION Status: Chronic Qualifiers: Hypertension type: essential hypertension Qualified Code(s): I10 - Essential (primary) hypertension (9) Hypernatremia Code(s): E87.0 - HYPEROSMOLALITY AND HYPERNATREMIA Status: Acute (10) Hypokalemia Code(s): E87.6 - HYPOKALEMIA Status: Acute - Plan plan discussed w/ family, PT/OT, social service liaison Replete free water and potassium with 5%Dextrose/KCL IVF -: Possible SNF placement * .
[2017-04-28] MEDS ORDERED: Potassium Chloride 40 MEQ in Dextrose 5% in Water 1,000 ML IV SCH ×2 (12:30)
[2017-04-28] MEDS: Morphine 4 MG/ML VIAL SLOW IVP PRN ×2 (16:18→21:53)
[2017-04-28] MEDS: Finasteride 5 MG TAB PO SCH (21:31)
[2017-04-28] MEDS: Terazosin HCl 5 MG CAP PO SCH (21:31)
[2017-04-28] MEDS: Melatonin 3 MG TAB PO SCH (21:31)
[2017-04-28] MEDS: Aspirin 81 mg Enteric Coated Tablet PO SCH (21:32)
--- NOTE | 2017-04-28 23:43 | PRG ---
DATE OF SERVICE: 04/28/2017 SUBJECTIVE: An 87-year-old gentleman being seen for acute kidney injury. Patient is resting and non verbal. PHYSICAL EXAMINATION: GENERAL: On examination, the patient is resting. VITAL SIGNS: Afebrile, pulse 92, breathing at 16, blood pressure 137/82. HEAD/NECK: Normocephalic. Atraumatic. EYES: EOMI. No deformity. EARS: Clear. No ulcers. NOSE: Intact. No lesions. MOUTH: Clear. No discharge. THROAT: Clear. No exudate. LUNGS: Clear. No crackles. CARDIAC: S1, S2. No rub. ABDOMEN: Benign. BS+. GENITALIA/RECTUM: Leo absent. BACK/EXTREMITIES: Edema 0+ Ulcer- NEUROLOGICAL: The patient is resting. SKIN: Rash- Bruise- LYMPHATICS: Edema- Ulcer- LABORATORY DATA: Hemoglobin 12.4. Sodium 149 and potassium 3.8. ASSESSMENT AND RECOMMENDATIONS: 1. Acute kidney injury, stable. 2. Hypokalemia. Recommendation 40 mEq potassium. 3. Hyponatremia. Start D5 water at 40 mL per hour. 4. Overall prognosis is extremely poor.
[2017-04-29] MEDS: Nitroglycerin 2% Ointment 1 INCH/1 GM Packet TOP SCH ×3 (05:38→22:01)
[2017-04-29] MEDS: Ciprofloxacin 500 MG TAB PO SCH ×2 (05:41→22:12)
[2017-04-29 06:20] LABS: Anion Gap 16 mmol/L (10-20); BUN (Urea Nitrogen) 52 mg/dL (8.4-25.7); Calc. Creatinine Clearance 36 mL/min (70-130); Calcium 9.6 mg/dL (7.8-10.44); Carbon Dioxide 37 mmol/L (23-31); Chloride 103 mmol/L (98-107); Estimated GFR-MDRD 56; Glucose 132 mg/dL (83-110); Sodium 153 mmol/L (136-145)
--- NOTE | 2017-04-29 08:10 | PDOC.PN ---
- Subjective Encounter Start Date: 04/29/17 Encounter Start Time: 08:09 Subjective: patient has pulled several IV and doesnt keep his Tele monitor - Objective Resuscitation Status: Resuscitation Status DNR:Do Not Resuscitate Vital Signs & Weight: Vital Signs (12 hours) Temp Pulse Resp BP Pulse Ox 04/29/17 04:00 97.9 F 77 18 130/95 H 93 L 04/29/17 00:00 97.2 F L 93 20 132/73 93 L Weight Weight 135 lb 8 oz I&O: 04/28/17 04/29/17 04/30/17 06:59 06:59 06:59 Intake Total 120 880 Balance 120 880 Result Diagrams: 04/24/17 04:47 04/29/17 05:23 Additional Labs: Accuchecks 04/28/17 11:46 POC Glucose 130 H Phys Exam - Physical Examination Constitutional: NAD HEENT: PERRLA, sclera anicteric, TM's clear Neck: no nodes, no JVD, supple, full ROM Respiratory: no wheezing, no rales, no rhonchi, clear to auscultation bilateral Cardiovascular: RRR, no significant murmur, no rub Gastrointestinal: soft, non-tender, no distention, positive bowel sounds Musculoskeletal: no edema, pulses present Dx/Plan (1) FABIOLA (acute kidney injury) Code(s): N17.9 - ACUTE KIDNEY FAILURE, UNSPECIFIED Status: Acute Comment: Cardiorenal syndrome, diuretics decreased, potassium repleted, holding ARB for now (2) CHF exacerbation Code(s): I50.9 - HEART FAILURE, UNSPECIFIED Status: Acute Qualifiers: Congestive heart failure type: systolic Qualified Code(s): I50.23 - Acute on chronic systolic (congestive) heart failure Comment: EF 20-25% (3) Demand ischemia of myocardium Code(s): I24.8 - OTHER FORMS OF ACUTE ISCHEMIC HEART DISEASE Status: Acute (4) Afib Code(s): I48.91 - UNSPECIFIED ATRIAL FIBRILLATION Status: Chronic Qualifiers: Atrial fibrillation type: chronic Qualified Code(s): I48.2 - Chronic atrial fibrillation (5) CAD (coronary artery disease) Code(s): I25.10 - ATHSCL HEART DISEASE OF [place] CORONARY ARTERY W/O ANG PCTRS Status: Chronic Qualifiers: Coronary Disease-Associated Artery/Lesion type: [place] artery [place] vs. transplanted heart: [place] heart Associated angina: with stable angina Qualified Code(s): I25.118 - Atherosclerotic heart disease of [place] coronary artery with other forms of angina pectoris (6) CKD (chronic kidney disease) Code(s): N18.9 - CHRONIC KIDNEY DISEASE, UNSPECIFIED Status: Chronic Qualifiers: Chronic kidney disease stage: stage 3 (moderate) Qualified Code(s): N18.3 - Chronic kidney disease, stage 3 (moderate) (7) Dyslipidemia Code(s): E78.5 - HYPERLIPIDEMIA, UNSPECIFIED Status: Chronic (8) HTN (hypertension) Code(s): I10 - ESSENTIAL (PRIMARY) HYPERTENSION Status: Chronic Qualifiers: Hypertension type: essential hypertension Qualified Code(s): I10 - Essential (primary) hypertension (9) Hypernatremia Code(s): E87.0 - HYPEROSMOLALITY AND HYPERNATREMIA Status: Acute (10) Hypokalemia Code(s): E87.6 - HYPOKALEMIA Status: Acute - Plan plan discussed w/ family, PT/OT, adoption social worker, respiratory therapy Increase free water repletion -: Transfer to medical * .
[2017-04-29] MEDS: Carvedilol 6.25 MG TAB PO SCH ×2 (08:14→22:12)
[2017-04-29] MEDS: Vit A,C & E/Lutein/Minerals Tablet PO SCH ×2 (08:14→22:09)
[2017-04-29] MEDS: Famotidine 20 MG TAB PO SCH (08:14)
[2017-04-29] MEDS: Clopidogrel Bisulfate 75 MG TAB PO SCH (08:14)
[2017-04-29] MEDS: Digoxin 0.125 MG TAB PO SCH (08:14)
[2017-04-29] MEDS: Potassium Chloride 40 MEQ in Dextrose 5% in Water 1,000 ML IV SCH ×4 (10:12→16:08)
[2017-04-29] MEDS: Enoxaparin Sodium 40 MG/0.4 ML SYRINGE SC SCH (10:13)
[2017-04-29] MEDS: Morphine 4 MG/ML VIAL SLOW IVP PRN (14:02)
--- NOTE | 2017-04-29 14:33 | PRG ---
DATE OF SERVICE: 04/29/2017 SUBJECTIVE: An 87-year-old gentleman being seen for acute kidney injury. The patient is more awake and alert today. He cannot hear. OBJECTIVE: GENERAL: The patient is alert. VITAL SIGNS: Afebrile, pulse 70, breathing at 16, blood pressure 132/73. HEAD/NECK: Normocephalic. Atraumatic. EYES: EOMI. No deformity. EARS: Clear. No ulcers. NOSE: Intact. No lesions. MOUTH: Clear. No discharge. THROAT: Clear. No exudate. LUNGS: Clear. No crackles. CARDIAC: S1, S2. No rub. ABDOMEN: Benign. BS+. GENITALIA/RECTUM: Leo absent. BACK/EXTREMITIES: Edema 0+. Ulcer-. NEUROLOGICAL: Alert and motor intact. SKIN: Rash-. Bruise-. LYMPHATICS: Edema-. Ulcer-. LABORATORY DATA: Showed a hemoglobin of 12.4. Sodium of 153 and creatinine 1.2. ASSESSMENT AND PLAN: 1. Acute kidney injury, resolved. 2. Chronic kidney disease stage 3, stable. 3. Hypernatremia. I would recommend checking sodium again. 4. Hypokalemia, on potassium replacement. I will order stat base met today. This can be followed u p with the primary team. I will sign off on this patient. Please reconsult as needed.
[2017-04-29 14:45] LABS: BUN (Urea Nitrogen) 49 mg/dL (8.4-25.7); Calc. Creatinine Clearance 36 mL/min (70-130); Calcium 9.6 mg/dL (7.8-10.44); Estimated GFR-MDRD 57; Glucose 159 mg/dL (83-110)
[2017-04-29 14:54] LABS: Anion Gap 11 mmol/L (10-20); Chloride 103 mmol/L (98-107); Potassium 3.1 mmol/L (3.5-5.1); Sodium 153 mmol/L (136-145)
[2017-04-29 15:01] LABS: Carbon Dioxide Greater than 37 mmol/L (23-31)
[2017-04-29 15:46] LABS: Actual Bicarbonate (HCO3a) 40.1 mEq/L (22-26); Analyzer IN Cardio OR; Base Excess (BEa) 15.2 mEq/L (0 (+/-) 2.5); CO2 Tension 50.2 mmHg (35.0-45.0); Calcium, Ionized 1.2 mmol/L (1.12-1.30); Hematocrit-ABG 36.6 % (42.0-52.0); Hemoglobin (Hb) 12.4 g/dL (14.0-18.0); O2 Tension (PaO2) 53.7 mmHg (80.0-100.0); Puncture Site RRA; pH, Arterial 7.52 (7.35-7.45)
[2017-04-29] MEDS ORDERED: Sterile Water 10 ML VIAL FS SCH (17:00)
[2017-04-29] MEDS ORDERED: acetaZOLAMIDE Sodium 500 mg Vial IVP SCH (17:00)
[2017-04-29] MEDS: Melatonin 3 MG TAB PO SCH (22:11)
[2017-04-29] MEDS: Terazosin HCl 5 MG CAP PO SCH (22:11)
[2017-04-29] MEDS: Finasteride 5 MG TAB PO SCH (22:12)
[2017-04-29] MEDS: Aspirin 81 mg Enteric Coated Tablet PO SCH (22:12)
[2017-04-30] MEDS: Potassium Chloride 40 MEQ in Dextrose 5% in Water 1,000 ML IV SCH ×6 (00:29→21:50)
[2017-04-30] MEDS: Nitroglycerin 2% Ointment 1 INCH/1 GM Packet TOP SCH ×3 (05:46→21:55)
[2017-04-30 06:14] LABS: Anion Gap 12 mmol/L (10-20); BUN (Urea Nitrogen) 40 mg/dL (8.4-25.7); Calc. Creatinine Clearance 37 mL/min (70-130); Calcium 9.4 mg/dL (7.8-10.44); Carbon Dioxide 35 mmol/L (23-31); Chloride 105 mmol/L (98-107); Estimated GFR-MDRD 60; Glucose 143 mg/dL (83-110); Potassium 3.2 mmol/L (3.5-5.1); Sodium 149 mmol/L (136-145)
[2017-04-30] MEDS: Ciprofloxacin 500 MG TAB PO SCH ×2 (06:36→21:22)
[2017-04-30] MEDS: Digoxin 0.125 MG TAB PO SCH (08:33)
[2017-04-30] MEDS: Clopidogrel Bisulfate 75 MG TAB PO SCH (08:33)
[2017-04-30] MEDS: Carvedilol 6.25 MG TAB PO SCH ×2 (08:33→21:20)
[2017-04-30] MEDS: Vit A,C & E/Lutein/Minerals Tablet PO SCH ×2 (08:34→21:30)
[2017-04-30] MEDS: Enoxaparin Sodium 40 MG/0.4 ML SYRINGE SC SCH (08:34)
[2017-04-30] MEDS: Famotidine 20 MG TAB PO SCH (08:35)
[2017-04-30 11:28] LABS: Actual Bicarbonate (HCO3a) 33.4 mEq/L (22-26); Base Excess (BEa) 7.7 mEq/L (0 (+/-) 2.5); CO2 Tension 52.6 mmHg (35.0-45.0); Calcium, Ionized 1.2 mmol/L (1.12-1.30); Hemoglobin (Hb) 11.5 g/dL (14.0-18.0); O2 Tension (PaO2) 58.4 mmHg (80.0-100.0); Puncture Site RRA; pH, Arterial 7.42 (7.35-7.45)
[2017-04-30] MEDS: Melatonin 3 MG TAB PO SCH (21:22)
[2017-04-30] MEDS: Aspirin 81 mg Enteric Coated Tablet PO SCH (21:22)
[2017-04-30] MEDS: Finasteride 5 MG TAB PO SCH (21:30)
[2017-04-30] MEDS: Terazosin HCl 5 MG CAP PO SCH (21:30)
[2017-05-01] MEDS: Nitroglycerin 2% Ointment 1 INCH/1 GM Packet TOP SCH ×3 (06:09→22:08)
[2017-05-01] MEDS: Ciprofloxacin 500 MG TAB PO SCH ×2 (06:10→22:08)
[2017-05-01] MEDS: Potassium Chloride 40 MEQ in Dextrose 5% in Water 1,000 ML IV SCH ×4 (06:11→15:30)
[2017-05-01 06:34] LABS: Anion Gap 13 mmol/L (10-20); BUN (Urea Nitrogen) 29 mg/dL (8.4-25.7); Calc. Creatinine Clearance 55 mL/min (70-130); Calcium 8.9 mg/dL (7.8-10.44); Carbon Dioxide 27 mmol/L (23-31); Chloride 107 mmol/L (98-107); Estimated GFR-MDRD 80; Glucose 129 mg/dL (83-110); Potassium 3.8 mmol/L (3.5-5.1); Sodium 143 mmol/L (136-145)
[2017-05-01] MEDS: Carvedilol 6.25 MG TAB PO SCH ×2 (08:47→22:03)
[2017-05-01] MEDS: Digoxin 0.125 MG TAB PO SCH (08:47)
[2017-05-01] MEDS: Clopidogrel Bisulfate 75 MG TAB PO SCH (08:48)
[2017-05-01] MEDS: Famotidine 20 MG TAB PO SCH (08:48)
[2017-05-01] MEDS: Enoxaparin Sodium 40 MG/0.4 ML SYRINGE SC SCH (08:48)
[2017-05-01] MEDS: Vit A,C & E/Lutein/Minerals Tablet PO SCH ×2 (08:50→22:06)
--- NOTE | 2017-05-01 15:47 | PDOC.PN ---
- Subjective Encounter Start Date: 05/01/17 Encounter Start Time: 15:15 -: non-verbal Discusseed with Family Daughter, at bedside. discussed options about SNF/ Rehab, family not ready for it, Discussed about Tube feeding and Peg tube, Family still wants to try oral feeds. - Objective Resuscitation Status: Resuscitation Status DNR:Do Not Resuscitate MAR Reviewed: Yes Vital Signs & Weight: Vital Signs (12 hours) Temp Pulse Pulse Resp BP BP BP 05/01/17 12:00 97.4 F L 71 20 134/69 05/01/17 09:07 72 138/74 05/01/17 08:50 96.4 F L 70 20 05/01/17 08:47 70 140/80 05/01/17 07:25 70 20 140/80 05/01/17 05:33 Pulse Ox 05/01/17 12:00 98 05/01/17 09:07 05/01/17 08:50 97 05/01/17 08:47 05/01/17 07:25 94 L 05/01/17 05:33 97 Weight Admit Weight 161 lb Weight 152 lb 1.6 oz I&O: 04/30/17 05/01/17 05/02/17 06:59 06:59 06:59 Intake Total 2145 825 Balance 2145 825 Result Diagrams: 04/24/17 04:47 05/01/17 04:52 Radiology Reviewed by me: Yes Phys Exam - Physical Examination HEENT: PERRLA, moist MMs Neck: no nodes, no JVD Respiratory: no wheezing, no rales Cardiovascular: RRR, no significant murmur Gastrointestinal: soft, non-tender, no distention Musculoskeletal: no edema, pulses present Neurological: non-focal, normal sensation Skin: no rash Dx/Plan (1) FABIOLA (acute kidney injury) Code(s): N17.9 - ACUTE KIDNEY FAILURE, UNSPECIFIED Status: Resolved Comment : Cardiorenal syndrome, diuretics decreased, potassium repleted, holding ARB for now (2) CHF exacerbation Code(s): I50.9 - HEART FAILURE, UNSPECIFIED Status: Chronic Qualifiers: Congestive heart failure type: unspecified congestive heart failure type Qualified Code(s): I50.9 - Heart failure, unspecified Comment: EF 20-25% (3) Delirium Code(s): R41.0 - DISORIENTATION, UNSPECIFIED Status: Chronic Comment: Hospital acquired due to unable to sleep, Haldol ineffective, will d/c and try Seroquel (4) Hypernatremia Code(s): E87.0 - HYPEROSMOLALITY AND HYPERNATREMIA Status: Resolved (5) Hypokalemia Code(s): E87.6 - HYPOKALEMIA Status: Resolved (6) UTI (urinary tract infection) Status: Resolved Qualifiers: Urinary tract infection type: acute cystitis Comment: E. coli pansensitive, on Cipro , today last day (7) Dyslipidemia Code(s): E78.5 - HYPERLIPIDEMIA, UNSPECIFIED Status: Chronic - Plan cont current plan of care, plan discussed w/ family, PT/OT, rn social services, speech therapy, incentive spirometry, DVT proph w/lovenox * . Plan: Plan discussed with Family, Will do Nutrition consult for Evaalution Protein calorie malnutrution,. Will do Prealbumin, and evalaute for tube feeding. - Discharge Day Encounter end time: 15:45 Review of Systems - Review of Systems Other: Unable to obtain due to being very drowsy and sleepy - Medications/Allergies Allergies/Adverse Reactions: Allergies Allergy/AdvReac Type Severity Reaction Status Date / Time No Known Allergies Allergy Verified 04/20/17 23:10 Medications: Current Medications Acetaminophen (Tylenol) 650 mg PO Q4H PRN PRN Reason: Headache/Fever or Pain Aspirin (Ecotrin) 81 mg PO HS [facility] Last Admin: 04/30/17 21:22 Dose: 81 mg Carvedilol (Coreg) 3.125 mg PO QAM [facility] Last Admin: 05/01/17 08:47 Dose: 3.125 mg Carvedilol (Coreg) 6.25 mg PO QPM [facility] Last Admin: 04/30/17 21:20 Dose: 6.25 mg Ciprofloxacin (Cipro) 500 mg PO 0600,2000 [facility] Last Admin: 05/01/17 06:10 Dose: 500 mg Clopidogrel Bisulfate (Plavix) 75 mg PO DAILY [facility] Last Admin: 05/01/17 08:48 Dose: 75 mg Digoxin (Lanoxin) 0.125 mg PO DAILY [facility] Last Admin: 05/01/17 08:47 Dose: 0.125 mg Enoxaparin Sodium (Lovenox) 40 mg SC 0900 [facility] Last Admin: 05/01/17 08:48 Dose: 40 mg Famotidine (Pepcid) 20 mg PO QAM [facility] Last Admin: 05/01/17 08:48 Dose: 20 mg Finasteride (Proscar) 5 mg PO HS [facility] Last Admin: 04/30/17 21:30 Dose: 5 mg Potassium Chloride 40 meq/ (Dextrose/Water) 1,020 mls @ 125 mls/hr IV .Q8H10M [facility] Last Admin: 05/01/17 15:30 Dose: 1,020 mls Lorazepam (Ativan) 0.5 mg SLOW IVP HSPRN PRN PRN Reason: Insomnia Melatonin (Melatonin) 6 mg PO HS [facility] Last Admin: 04/30/17 21:22 Dose: 6 mg Morphine Sulfate (Morphine) 1 mg SLOW IVP Q6H PRN PRN Reason: Pain Last Admin: 04/29/17 14:02 Dose: 1 mg Multivitamins/Minerals (Ocuvite With Lutein) 1 tab PO BID [facility] Last Admin: 05/01/17 08:50 Dose: 1 tab Nitroglycerin (Nitro-Bid 2% Ointment) 0.5 inch TOP Q8HR [facility] Last Admin: 05/01/17 15:30 Dose: 0.5 inch Ondansetron HCl (Zofran Odt) 4 mg PO Q6H PRN PRN Reason: Nausea/Vomiting Quetiapine Fumarate (Seroquel) 25 mg PO BID [facility] Last Admin: 05/01/17 08:48 Dose: 25 mg Sodium Chloride (Flush - Normal Saline) 10 ml IVF Q12HR [facility] Last Admin: 05/01/17 08:56 Dose: 10 ml Sodium Chloride (Flush - Normal Saline) 10 ml IVF PRN PRN PRN Reason: Saline Flush Last Admin: 04/29/17 14:04 Dose: 10 ml Terazosin HCl (Hytrin) 10 mg PO HS [facility] Last Admin: 04/30/17 21:30 Dose: 10 mg
[2017-05-01 16:57] LABS: ALT (SGPT) 26 U/L (8-55); AST (SGOT) 28 U/L (5-34); Alkaline Phosphatase 95 U/L (40-150); Anion Gap 12 mmol/L (10-20); BUN (Urea Nitrogen) 25 mg/dL (8.4-25.7); Bilirubin, Total 1.5 mg/dL (0.2-1.2); Calc. Creatinine Clearance 60 mL/min (70-130); Calcium 8.8 mg/dL (7.8-10.44); Carbon Dioxide 26 mmol/L (23-31); Chloride 106 mmol/L (98-107); Estimated GFR-MDRD 88; Globulin 2.9 g/dL (2.4-3.5); Glucose 114 mg/dL (83-110); Potassium 3.8 mmol/L (3.5-5.1); Protein, Total 5.9 g/dL (5.8-8.1); Sodium 140 mmol/L (136-145)
[2017-05-01] MEDS: Finasteride 5 MG TAB PO SCH (22:04)
[2017-05-01] MEDS: Aspirin 81 mg Enteric Coated Tablet PO SCH (22:04)
[2017-05-01] MEDS: Terazosin HCl 5 MG CAP PO SCH (22:05)
[2017-05-01] MEDS: Melatonin 3 MG TAB PO SCH (22:05)
[2017-05-01] MEDS ORDERED: Ciprofloxacin 500 MG TAB PO SCH (22:15)
[2017-05-02] MEDS: Potassium Chloride 40 MEQ in Dextrose 5% in Water 1,000 ML IV SCH ×6 (01:26→20:43)
[2017-05-02] MEDS: Nitroglycerin 2% Ointment 1 INCH/1 GM Packet TOP SCH ×3 (06:26→22:35)
[2017-05-02 06:51] LABS: Anion Gap 9 mmol/L (10-20); BUN (Urea Nitrogen) 23 mg/dL (8.4-25.7); Calc. Creatinine Clearance 58 mL/min (70-130); Calcium 8.4 mg/dL (7.8-10.44); Carbon Dioxide 27 mmol/L (23-31); Chloride 105 mmol/L (98-107); Estimated GFR-MDRD 86; Glucose 131 mg/dL (83-110); Potassium 4.6 mmol/L (3.5-5.1); Sodium 136 mmol/L (136-145)
[2017-05-02] MEDS: Enoxaparin Sodium 40 MG/0.4 ML SYRINGE SC SCH (08:28)
[2017-05-02] MEDS: Carvedilol 6.25 MG TAB PO SCH ×2 (08:29→20:14)
[2017-05-02] MEDS: Digoxin 0.125 MG TAB PO SCH (08:29)
[2017-05-02] MEDS: Famotidine 20 MG TAB PO SCH (08:30)
[2017-05-02] MEDS: Clopidogrel Bisulfate 75 MG TAB PO SCH (08:30)
[2017-05-02] MEDS: Vit A,C & E/Lutein/Minerals Tablet PO SCH ×2 (13:37→20:15)
--- NOTE | 2017-05-02 16:52 | PDOC.PN ---
- Subjective Encounter Start Date: 05/02/17 Encounter Start Time: 07:30 Irene is rick today, Drowsy and lethargy, Will plan on getting Speech therapy to see pt. - Objective Resuscitation Status: Resuscitation Status DNR:Do Not Resuscitate MAR Reviewed: Yes Vital Signs & Weight: Vital Signs (12 hours) Temp Pulse Pulse Resp BP BP BP 05/02/17 16:25 97.2 F L 70 16 119/61 05/02/17 13:29 70 102/61 05/02/17 08:29 97.3 F L 70 16 102/60 05/02/17 07:37 97.3 F L 70 16 125/59 L Pulse Ox Pulse Ox 05/02/17 16:25 95 05/02/17 13:29 99 05/02/17 08:29 99 05/02/17 07:37 99 Weight Admit Weight 161 lb Weight 152 lb 1.6 oz I&O: 05/01/17 05/02/17 05/03/17 06:59 06:59 06:59 Intake Total 825 1700 Balance 825 1700 Result Diagrams: 04/24/17 04:47 05/02/17 05:45 Phys Exam - Physical Examination HEENT: PERRLA, moist MMs, oral pharynx no lesions Neck: no nodes, no JVD Respiratory: no wheezing, no rales Cardiovascular: RRR, no significant murmur Gastrointestinal: soft, non-tender Musculoskeletal: no edema, pulses present Dx/Plan (1) FABIOLA (acute kidney injury) Code(s): N17.9 - ACUTE KIDNEY FAILURE, UNSPECIFIED Status: Resolved Comment : Cardiorenal syndrome, diuretics decreased, potassium repleted, holding ARB for now (2) CHF exacerbation Code(s): I50.9 - HEART FAILURE, UNSPECIFIED Status: Chronic Qualifiers: Congestive heart failure type: unspecified congestive heart failure type Qualified Code(s): I50.9 - Heart failure, unspecified Comment: EF 20-25% (3) Delirium Code(s): R41.0 - DISORIENTATION, UNSPECIFIED Status: Chronic Comment: Hospital acquired due to unable to sleep, Haldol ineffective, will d/c and try Seroquel (4) Hypernatremia Code(s): E87.0 - HYPEROSMOLALITY AND HYPERNATREMIA Status: Resolved (5) Hypokalemia Code(s): E87.6 - HYPOKALEMIA Status: Resolved (6) UTI (urinary tract infection) Status: Resolved Qualifiers: Urinary tract infection type: acute cystitis Comment: E. coli pansensitive, on Cipro , today last day (7) Dyslipidemia Code(s): E78.5 - HYPERLIPIDEMIA, UNSPECIFIED Status: Chronic (8) Moderate protein-calorie malnutrition Code(s): E44.0 - MODERATE PROTEIN-CALORIE MALNUTRITION Status: Acute Plan: Patiet has low prealbumin, discussed with Speech therapy, Plan on advancing diet per her recommedations. if pt not able to increase feeds, will do Tube feeding. - Plan cont current plan of care, plan discussed w/ family, PT/OT, protective services social worker, speech therapy, respiratory therapy, incentive spirometry, DVT proph w/lovenox * . - Discharge Day Encounter end time: 07:45 Review of Systems - Review of Systems Other: Unable to get ROS as pt is lethergic at this time. No family memeber at bed side - Medications/Allergies Allergies/Adverse Reactions: Allergies Allergy/AdvReac Type Severity Reaction Status Date / Time No Known Allergies Allergy Verified 04/20/17 23:10 Medications: Current Medications Acetaminophen (Tylenol) 650 mg PO Q4H PRN PRN Reason: Headache/Fever or Pain Aspirin (Ecotrin) 81 mg PO HS [facility] Last Admin: 05/01/17 22:04 Dose: 81 mg Carvedilol (Coreg) 3.125 mg PO QAM [facility] Last Admin: 05/02/17 08:29 Dose: 3.125 mg Carvedilol (Coreg) 6.25 mg PO QPM [facility] Last Admin: 05/01/17 22:03 Dose: 6.25 mg Clopidogrel Bisulfate (Plavix) 75 mg PO DAILY [facility] Last Admin: 05/02/17 08:30 Dose: 75 mg Digoxin (Lanoxin) 0.125 mg PO DAILY [facility] Last Admin: 05/02/17 08:29 Dose: 0.125 mg Enoxaparin Sodium (Lovenox) 40 mg SC 0900 [facility] Last Admin: 05/02/17 08:28 Dose: 40 mg Famotidine (Pepcid) 20 mg PO QAM [facility] Last Admin: 05/02/17 08:30 Dose: 20 mg Finasteride (Proscar) 5 mg PO [facility] Last Admin: 05/01/17 22:04 Dose: 5 mg Potassium Chloride 40 meq/ (Dextrose/Water) 1,020 mls @ 125 mls/hr IV .Q8H10M [facility] Last Admin: 05/02/17 11:00 Dose: 1,020 mls Lorazepam (Ativan) 0.5 mg SLOW IVP HSPRN PRN PRN Reason: Insomnia Melatonin (Melatonin) 6 mg PO [facility] Last Admin: 05/01/17 22:05 Dose: 6 mg Morphine Sulfate (Morphine) 1 mg SLOW IVP Q6H PRN PRN Reason: Pain Last Admin: 04/29/17 14:02 Dose: 1 mg Multivitamins/Minerals (Ocuvite With Lutein) 1 tab PO BID [facility] Last Admin: 05/02/17 13:37 Dose: 1 tab Nitroglycerin (Nitro-Bid 2% Ointment) 0.5 inch TOP Q8HR [facility] Last Admin: 05/02/17 13:25 Dose: 0.5 inch Ondansetron HCl (Zofran Odt) 4 mg PO Q6H PRN PRN Reason: Nausea/Vomiting Quetiapine Fumarate (Seroquel) 25 mg PO BID [facility] Last Admin: 05/02/17 08:45 Dose: 25 mg Sodium Chloride (Flush - Normal Saline) 10 ml IVF Q12HR [facility] Last Admin: 05/02/17 08:50 Dose: Not Given Sodium Chloride (Flush - Normal Saline) 10 ml IVF PRN PRN PRN Reason: Saline Flush Last Admin: 04/29/17 14:04 Dose: 10 ml Terazosin HCl (Hytrin) 10 mg PO [facility] Last Admin: 05/01/17 22:05 Dose: 10 mg
[2017-05-02] MEDS: Finasteride 5 MG TAB PO SCH (20:13)
[2017-05-02] MEDS: Aspirin 81 mg Enteric Coated Tablet PO SCH (20:13)
[2017-05-02] MEDS: Melatonin 3 MG TAB PO SCH (20:14)
[2017-05-02] MEDS: Terazosin HCl 5 MG CAP PO SCH (20:16)
[2017-05-03] MEDS: Potassium Chloride 40 MEQ in Dextrose 5% in Water 1,000 ML IV SCH ×6 (05:05→16:42)
[2017-05-03] MEDS: Nitroglycerin 2% Ointment 1 INCH/1 GM Packet TOP SCH ×3 (05:29→23:27)
[2017-05-03 06:00] LABS: Anion Gap 7 mmol/L (10-20); BUN (Urea Nitrogen) 24 mg/dL (8.4-25.7); Calc. Creatinine Clearance 55 mL/min (70-130); Calcium 8.5 mg/dL (7.8-10.44); Carbon Dioxide 26 mmol/L (23-31); Chloride 106 mmol/L (98-107); Estimated GFR-MDRD 80; Glucose 112 mg/dL (83-110); Potassium 5.4 mmol/L (3.5-5.1); Sodium 134 mmol/L (136-145)
[2017-05-03] MEDS: Carvedilol 6.25 MG TAB PO SCH ×2 (09:39→19:56)
[2017-05-03] MEDS: Clopidogrel Bisulfate 75 MG TAB PO SCH (09:39)
[2017-05-03] MEDS: Digoxin 0.125 MG TAB PO SCH (09:39)
[2017-05-03] MEDS: Enoxaparin Sodium 40 MG/0.4 ML SYRINGE SC SCH (09:40)
[2017-05-03] MEDS: Famotidine 20 MG TAB PO SCH (09:40)
[2017-05-03] MEDS: Vit A,C & E/Lutein/Minerals Tablet PO SCH ×2 (09:40→19:59)
--- NOTE | 2017-05-03 11:14 | PDOC.PN ---
- Subjective Encounter Start Date: 05/03/17 Encounter Start Time: 08:45 states he is doing okay. agrees. did very poorly with pt today. has agreed for patient to go to snf - Objective Resuscitation Status: Resuscitation Status DNR:Do Not Resuscitate Vital Signs & Weight: Vital Signs (12 hours) Temp Pulse Resp BP BP BP Pulse Ox 05/03/17 09:39 70 105/58 L 05/03/17 08:00 96.7 F L 70 24 H 98 05/03/17 07:20 96.7 F L 70 24 H 105/58 L 100 05/03/17 06:15 95.2 F L 05/03/17 03:58 69 16 115/57 L 99 Weight Admit Weight 161 lb Weight 152 lb 1.6 oz I&O: 05/02/17 05/03/17 05/04/17 06:59 06:59 06:59 Intake Total 1700 1900 Output Total 100 Balance 1700 1800 Result Diagrams: 04/24/17 04:47 05/03/17 05:24 Phys Exam - Physical Examination HEENT: PERRLA, moist MMs, sclera anicteric Neck: no JVD, supple Respiratory: no wheezing, no rales, no rhonchi, clear to auscultation bilateral Cardiovascular: RRR Gastrointestinal: non-tender, no distention Musculoskeletal: no edema, pulses present Psychiatric: normal affect Dx/Plan (1) Demand ischemia of myocardium Code(s): I24.8 - OTHER FORMS OF ACUTE ISCHEMIC HEART DISEASE Status: Acute (2) Moderate protein-calorie malnutrition Code(s): E44.0 - MODERATE PROTEIN-CALORIE MALNUTRITION Status: Acute (3) Afib Code(s): I48.91 - UNSPECIFIED ATRIAL FIBRILLATION Status: Chronic Qualifiers: Atrial fibrillation type: chronic Qualified Code(s): I48.2 - Chronic atrial fibrillation (4) CAD (coronary artery disease) Code(s): I25.10 - ATHSCL HEART DISEASE OF [place] CORONARY ARTERY W/O ANG PCTRS Status: Chronic Qualifiers: Coronary Disease-Associated Artery/Lesion type: [place] artery [place] vs. transplanted heart: [place] heart Associated angina: with stable angina Qualified Code(s): I25.118 - Atherosclerotic heart disease of [place] coronary artery with other forms of angina pectoris (5) CHF exacerbation Code(s): I50.9 - HEART FAILURE, UNSPECIFIED Status: Chronic Qualifiers: Congestive heart failure type: unspecified congestive heart failure type Qualified Code(s): I50.9 - Heart failure, unspecified Comment: EF 20-25% (6) CKD (chronic kidney disease) Code(s): N18.9 - CHRONIC KIDNEY DISEASE, UNSPECIFIED Status: Chronic Qualifiers: Chronic kidney disease stage: stage 3 (moderate) Qualified Code(s): N18.3 - Chronic kidney disease, stage 3 (moderate) (7) Dyslipidemia Code(s): E78.5 - HYPERLIPIDEMIA, UNSPECIFIED Status: Chronic (8) HTN (hypertension) Code(s): I10 - ESSENTIAL (PRIMARY) HYPERTENSION Status: Chronic Qualifiers: Hypertension type: essential hypertension Qualified Code(s): I10 - Essential (primary) hypertension (9) FABIOLA (acute kidney injury) Code(s): N17.9 - ACUTE KIDNEY FAILURE, UNSPECIFIED Status: Resolved Comment : Cardiorenal syndrome, diuretics decreased, potassium repleted, holding ARB for now (10) Systolic CHF, acute on chronic Code(s): I50.23 - ACUTE ON CHRONIC SYSTOLIC (CONGESTIVE) HEART FAILURE Status : Acute - Plan cont current plan of care, plan discussed w/ family, PT/OT, social media content specialist, speech therapy * . pending placement choice by family
[2017-05-03] MEDS: Aspirin 81 mg Enteric Coated Tablet PO SCH (19:56)
[2017-05-03] MEDS: Finasteride 5 MG TAB PO SCH (19:56)
[2017-05-03] MEDS: Melatonin 3 MG TAB PO SCH (19:58)
[2017-05-03] MEDS: Terazosin HCl 5 MG CAP PO SCH (19:59)
[2017-05-04] MEDS: Potassium Chloride 40 MEQ in Dextrose 5% in Water 1,000 ML IV SCH ×6 (00:27→20:22)
[2017-05-04] MEDS: Nitroglycerin 2% Ointment 1 INCH/1 GM Packet TOP SCH ×3 (05:22→22:34)
[2017-05-04 06:24] LABS: #Eosinphils 0.2 thou/uL (0.0-0.7); #Lymphocytes 0.9 thou/uL (1.20-3.40); #Neutrophils 12.6 thou/uL (1.40-6.50); %Basophils 0.1 % (0.0-1.0); %Eosinophils 1.4 % (0.0-10.0); %Lymphocytes 6.2 % (21.0-51.0); %Neutrophils 85.3 % (42.0-75.0); Mean Corpuscular HGB CONC 30.7 g/dL (32.0-36.0); Mean Corpuscular Hemoglobin 30.3 pg (27.0-31.0); Mean Corpuscular Volume 98.9 fl (80.0-94.0); Mean Platelet Volume 8.5 fL (7.4-10.4); Platelet Count 230 thou/uL (130-400); RBC Distribution Width 15.1 % (11.5-14.5); Red Blood Cell (RBC) Count 3.64 mill/uL (4.70-6.10); White Blood Cell (WBC) Count 14.8 thou/uL (4.8-10.8)
[2017-05-04 06:40] LABS: Anion Gap 12 mmol/L (10-20); BUN (Urea Nitrogen) 21 mg/dL (8.4-25.7); Calc. Creatinine Clearance 57 mL/min (70-130); Calcium 8.8 mg/dL (7.8-10.44); Carbon Dioxide 21 mmol/L (23-31); Chloride 107 mmol/L (98-107); Estimated GFR-MDRD 79; Glucose 112 mg/dL (83-110); Potassium 6.1 mmol/L (3.5-5.1); Sodium 134 mmol/L (136-145)
[2017-05-04] MEDS ORDERED: Dextrose 50% Abboject 50 ML SYRINGE SLOW IVP PRN (08:06)
[2017-05-04] MEDS: Digoxin 0.125 MG TAB PO SCH (08:14)
[2017-05-04] MEDS: Carvedilol 6.25 MG TAB PO SCH ×2 (08:14→20:24)
[2017-05-04] MEDS: Clopidogrel Bisulfate 75 MG TAB PO SCH (08:14)
[2017-05-04] MEDS: Enoxaparin Sodium 40 MG/0.4 ML SYRINGE SC SCH (08:15)
[2017-05-04] MEDS: Famotidine 20 MG TAB PO SCH (08:15)
[2017-05-04] MEDS ORDERED: Insulin Regular 300 UNITS/3 ML VIAL IVP SCH (08:15)
[2017-05-04] MEDS: Vit A,C & E/Lutein/Minerals Tablet PO SCH ×2 (08:16→20:27)
--- NOTE | 2017-05-04 10:29 | PDOC.PN ---
- Subjective Encounter Start Date: 05/04/17 Encounter Start Time: 08:30 states that he is doing well today with no complaints. - Objective Resuscitation Status: Resuscitation Status DNR:Do Not Resuscitate Vital Signs & Weight: Vital Signs (12 hours) Temp Pulse Resp BP BP Pulse Ox 05/04/17 08:14 70 127/61 05/04/17 07:25 70 16 127/61 97 05/04/17 04:00 96.2 F L 70 16 138/61 96 05/04/17 00:00 97.3 F L 69 16 117/57 L 98 Weight Admit Weight 161 lb Weight 159 lb 2.78 oz I&O: 05/03/17 05/04/17 05/05/17 06:59 06:59 06:59 Intake Total 1900 1560 1500 Output Total 100 Balance 1800 1560 1500 Result Diagrams: 05/04/17 05:56 05/04/17 05:56 Phys Exam - Physical Examination Constitutional: NAD HEENT: PERRLA, moist MMs, sclera anicteric Neck: no JVD, supple, full ROM Respiratory: no wheezing, clear to auscultation bilateral Cardiovascular: RRR, no significant murmur Gastrointestinal: soft, non-tender, no distention Musculoskeletal: no edema, pulses present Neurological: non-focal, moves all 4 limbs Psychiatric: normal affect, A&O x 3 Skin: cap refill <2 seconds Dx/Plan (1) Demand ischemia of myocardium Code(s): I24.8 - OTHER FORMS OF ACUTE ISCHEMIC HEART DISEASE Status: Acute (2) Moderate protein-calorie malnutrition Code(s): E44.0 - MODERATE PROTEIN-CALORIE MALNUTRITION Status: Acute (3) Afib Code(s): I48.91 - UNSPECIFIED ATRIAL FIBRILLATION Status: Chronic Qualifiers: Atrial fibrillation type: chronic Qualified Code(s): I48.2 - Chronic atrial fibrillation (4) CAD (coronary artery disease) Code(s): I25.10 - ATHSCL HEART DISEASE OF [place] CORONARY ARTERY W/O ANG PCTRS Status: Chronic Qualifiers: Coronary Disease-Associated Artery/Lesion type: [place] artery [place] vs. transplanted heart: [place] heart Associated angina: with stable angina Qualified Code(s): I25.118 - Atherosclerotic heart disease of [place] coronary artery with other forms of angina pectoris (5) CHF exacerbation Code(s): I50.9 - HEART FAILURE, UNSPECIFIED Status: Chronic Qualifiers: Congestive heart failure type: unspecified congestive heart failure type Qualified Code(s): I50.9 - Heart failure, unspecified Comment: EF 20-25% (6) CKD (chronic kidney disease) Code(s): N18.9 - CHRONIC KIDNEY DISEASE, UNSPECIFIED Status: Chronic Qualifiers: Chronic kidney disease stage: stage 3 (moderate) Qualified Code(s): N18.3 - Chronic kidney disease, stage 3 (moderate) (7) Dyslipidemia Code(s): E78.5 - HYPERLIPIDEMIA, UNSPECIFIED Status: Chronic (8) HTN (hypertension) Code(s): I10 - ESSENTIAL (PRIMARY) HYPERTENSION Status: Chronic Qualifiers: Hypertension type: essential hypertension Qualified Code(s): I10 - Essential (primary) hypertension (9) FABIOLA (acute kidney injury) Code(s): N17.9 - ACUTE KIDNEY FAILURE, UNSPECIFIED Status: Resolved Comment : Cardiorenal syndrome, diuretics decreased, potassium repleted, holding ARB for now (10) Systolic CHF, acute on chronic Code(s): I50.23 - ACUTE ON CHRONIC SYSTOLIC (CONGESTIVE) HEART FAILURE Status : Acute (11) Hyperkalemia Code(s): E87.5 - HYPERKALEMIA Status: Acute - Plan cont current plan of care, plan discussed w/ family, PT/OT, social media strategist * . will give kayexalate with insulin and 1am of d50 recheck potassium in 4 hrs pending approval for SNF
[2017-05-04 15:56] LABS: Potassium 5.9 mmol/L (3.5-5.1)
[2017-05-04] MEDS: Aspirin 81 mg Enteric Coated Tablet PO SCH (20:24)
[2017-05-04] MEDS: Terazosin HCl 5 MG CAP PO SCH (20:24)
[2017-05-04] MEDS: Melatonin 3 MG TAB PO SCH (20:25)
[2017-05-04] MEDS: Finasteride 5 MG TAB PO SCH (20:25)
[2017-05-05] MEDS: Potassium Chloride 40 MEQ in Dextrose 5% in Water 1,000 ML IV SCH ×2 (04:40)
[2017-05-05 06:09] LABS: Anion Gap 10 mmol/L (10-20); BUN (Urea Nitrogen) 20 mg/dL (8.4-25.7); Calc. Creatinine Clearance 60 mL/min (70-130); Calcium 8.6 mg/dL (7.8-10.44); Carbon Dioxide 24 mmol/L (23-31); Chloride 107 mmol/L (98-107); Estimated GFR-MDRD 86; Glucose 149 mg/dL (83-110); Potassium 5.5 mmol/L (3.5-5.1); Sodium 135 mmol/L (136-145)
[2017-05-05] MEDS: Nitroglycerin 2% Ointment 1 INCH/1 GM Packet TOP SCH ×3 (06:32→22:05)
[2017-05-05] MEDS: Enoxaparin Sodium 40 MG/0.4 ML SYRINGE SC SCH (09:20)
--- NOTE | 2017-05-05 09:23 | PDOC.PN ---
- Subjective Encounter Start Date: 05/05/17 Encounter Start Time: 09:21 Patient seen at bedside. No overnight events, no new complaints. - Objective Resuscitation Status: Resuscitation Status DNR:Do Not Resuscitate MAR Reviewed: Yes Vital Signs & Weight: Vital Signs (12 hours) Temp Pulse Resp BP BP Pulse Ox 05/05/17 08:15 97.8 F 70 16 05/05/17 07:47 70 12 133/76 95 05/05/17 06:33 68 16 134/68 95 Weight Admit Weight 161 lb Weight 157 lb I&O: 05/04/17 05/05/17 05/06/17 06:59 06:59 06:59 Intake Total 1560 5370 Balance 1560 5370 Result Diagrams: 05/04/17 05:56 05/05/17 05:29 Phys Exam - Physical Examination Constitutional: NAD HEENT: moist MMs Respiratory: clear to auscultation bilateral Cardiovascular: RRR Gastrointestinal: soft Musculoskeletal: pulses present Neurological: moves all 4 limbs Skin: normal turgor Dx/Plan (1) Demand ischemia of myocardium Code(s): I24.8 - OTHER FORMS OF ACUTE ISCHEMIC HEART DISEASE Status: Acute (2) Hyperkalemia Code(s): E87.5 - HYPERKALEMIA Status: Acute (3) CHF exacerbation Code(s): I50.9 - HEART FAILURE, UNSPECIFIED Status: Chronic Qualifiers: Congestive heart failure type: unspecified congestive heart failure type Qualified Code(s): I50.9 - Heart failure, unspecified Comment: EF 20-25% (4) Dyslipidemia Code(s): E78.5 - HYPERLIPIDEMIA, UNSPECIFIED Status: Chronic (5) Systolic CHF, acute on chronic Code(s): I50.23 - ACUTE ON CHRONIC SYSTOLIC (CONGESTIVE) HEART FAILURE Status : Acute - Plan cont current plan of care, plan discussed w/ family, social worker school * Discontinue IV Fluids. * Repeat CBC ( UTI?) and Base met in AM * No KELLEE due to hyperkalemia * ASA/BB/Statin/Digoxin * Awaiting placement
[2017-05-05] MEDS: Carvedilol 6.25 MG TAB PO SCH ×2 (14:03→21:49)
[2017-05-05] MEDS: Digoxin 0.125 MG TAB PO SCH (14:04)
[2017-05-05] MEDS: Famotidine 20 MG TAB PO SCH (14:04)
[2017-05-05] MEDS: Clopidogrel Bisulfate 75 MG TAB PO SCH (14:04)
[2017-05-05] MEDS: Vit A,C & E/Lutein/Minerals Tablet PO SCH ×2 (14:05→21:52)
[2017-05-05] MEDS: Aspirin 81 mg Enteric Coated Tablet PO SCH (21:48)
[2017-05-05] MEDS: Finasteride 5 MG TAB PO SCH (21:50)
[2017-05-05] MEDS: Melatonin 3 MG TAB PO SCH (21:50)
[2017-05-05] MEDS: Terazosin HCl 5 MG CAP PO SCH (21:51)
[2017-05-06 05:43] LABS: Anion Gap 13 mmol/L (10-20); BUN (Urea Nitrogen) 16 mg/dL (8.4-25.7); Calc. Creatinine Clearance 64 mL/min (70-130); Calcium 9.1 mg/dL (7.8-10.44); Carbon Dioxide 24 mmol/L (23-31); Chloride 106 mmol/L (98-107); Estimated GFR-MDRD Greater than 90; Glucose 78 mg/dL (83-110); Potassium 5.3 mmol/L (3.5-5.1); Sodium 138 mmol/L (136-145)
[2017-05-06] MEDS: Nitroglycerin 2% Ointment 1 INCH/1 GM Packet TOP SCH ×3 (06:36→23:19)
[2017-05-06] MEDS: Enoxaparin Sodium 40 MG/0.4 ML SYRINGE SC SCH (08:34)
[2017-05-06] MEDS: Digoxin 0.125 MG TAB PO SCH (08:34)
[2017-05-06] MEDS: Vit A,C & E/Lutein/Minerals Tablet PO SCH ×2 (08:34→20:47)
[2017-05-06] MEDS: Carvedilol 6.25 MG TAB PO SCH ×2 (08:35→20:48)
[2017-05-06] MEDS: Famotidine 20 MG TAB PO SCH (08:35)
[2017-05-06] MEDS: Clopidogrel Bisulfate 75 MG TAB PO SCH (08:35)
--- NOTE | 2017-05-06 12:42 | PDOC.PN ---
- Subjective Encounter Start Date: 05/06/17 Encounter Start Time: 12:40 Patient seen at bedside. Overnight the patient became hypothermic, required a BearHugger blanket. Since then, euthermic. Afebrile, no other complaints. - Objective Resuscitation Status: Resuscitation Status DNR:Do Not Resuscitate MAR Reviewed: Yes Vital Signs & Weight: Vital Signs (12 hours) Temp Pulse Resp BP BP BP Pulse Ox 05/06/17 08:35 138/67 05/06/17 08:34 70 05/06/17 08:00 96.9 F L 70 20 05/06/17 07:30 96.9 F L 72 20 138/67 94 L 05/06/17 04:00 96.8 F L 72 18 116/56 L 95 Weight Admit Weight 161 lb Weight 153 lb 14.122 oz I&O: 05/05/17 05/06/17 05/07/17 06:59 06:59 06:59 Intake Total 5370 500 Balance 5370 500 Result Diagrams: 05/04/17 05:56 05/06/17 04:38 Phys Exam - Physical Examination Constitutional: NAD HEENT: moist MMs Neck: no JVD Respiratory: clear to auscultation bilateral Cardiovascular: RRR Gastrointestinal: non-tender Musculoskeletal: pulses present Neurological: moves all 4 limbs Deviation from normal: Responds to verbal stimuli Dx/Plan (1) Demand ischemia of myocardium Code(s): I24.8 - OTHER FORMS OF ACUTE ISCHEMIC HEART DISEASE Status: Acute (2) Hyperkalemia Code(s): E87.5 - HYPERKALEMIA Status: Acute (3) CHF exacerbation Code(s): I50.9 - HEART FAILURE, UNSPECIFIED Status: Chronic Qualifiers: Congestive heart failure type: unspecified congestive heart failure type Qualified Code(s): I50.9 - Heart failure, unspecified Comment: EF 20-25% (4) Dyslipidemia Code(s): E78.5 - HYPERLIPIDEMIA, UNSPECIFIED Status: Chronic (5) Systolic CHF, acute on chronic Code(s): I50.23 - ACUTE ON CHRONIC SYSTOLIC (CONGESTIVE) HEART FAILURE Status : Acute - Plan cont current plan of care, plan discussed w/ family, PT/OT, long term care social worker, out of bed/ambulate, DVT proph w/SCDs * Continue with current management. * Panculture to ensure no recurrent infection (CXR, Blood cx, Urine cx, CBC) * If no improvement, may require gentle IV fluids * CMET in AM * Eventual placement.
[2017-05-06 13:12] LABS: #Eosinphils 0.2 thou/uL (0.0-0.7); #Lymphocytes 0.6 thou/uL (1.20-3.40); #Monocytes 0.7 thou/uL (0.11-0.59); #Neutrophils 10.2 thou/uL (1.40-6.50); %Basophils 0.1 % (0.0-1.0); %Eosinophils 1.4 % (0.0-10.0); %Lymphocytes 5.2 % (21.0-51.0); %Monocytes 6.1 % (0.0-10.0); %Neutrophils 87.2 % (42.0-75.0); Hemoglobin 11.7 g/dL (14.0-18.0); Mean Corpuscular HGB CONC 30.9 g/dL (32.0-36.0); Mean Corpuscular Hemoglobin 29.9 pg (27.0-31.0); Mean Corpuscular Volume 96.7 fl (80.0-94.0); Mean Platelet Volume 8.9 fL (7.4-10.4); Platelet Count 226 thou/uL (130-400); RBC Distribution Width 15.5 % (11.5-14.5); White Blood Cell (WBC) Count 11.7 thou/uL (4.8-10.8)
--- NOTE | 2017-05-06 14:11 | RAD ---
UPRIGHT PORTABLE CHEST 1 VIEW: Date: 05/06/17 HISTORY: 87-year-old male with follow-up shortness of breath. COMPARISON: 04/20/17. FINDINGS: Left ICD. Cardiomegaly. Bilateral vascular congestion with bilateral pleural effusions, greater on th e right side. In addition to the pleural effusion, there appear to be some underlying parenchymal aracelis nges in both bases, raising concern for bilateral pneumonia. IMPRESSION: Cardiomegaly with bilateral vascular congestion and bilateral pleural effusions and probable underlyi ng pulmonary and parenchymal changes in the lower lung zones bilaterally, showing overall worsening w hen compared to the 04/20/17 study. Continue short-term follow-up. POS: JOSTIN
[2017-05-06] MEDS: Finasteride 5 MG TAB PO SCH (20:48)
[2017-05-06] MEDS: Melatonin 3 MG TAB PO SCH (20:48)
[2017-05-06] MEDS: Terazosin HCl 5 MG CAP PO SCH (20:49)
[2017-05-06] MEDS: Aspirin 81 mg Enteric Coated Tablet PO SCH (20:49)
[2017-05-07 05:10] LABS: #Basophils 0.1 thou/uL (0.0-0.2); #Eosinphils 0.1 thou/uL (0.0-0.7); #Lymphocytes 0.8 thou/uL (1.20-3.40); #Monocytes 0.7 thou/uL (0.11-0.59); #Neutrophils 5.9 thou/uL (1.40-6.50); %Basophils 0.7 % (0.0-1.0); %Eosinophils 1.7 % (0.0-10.0); %Lymphocytes 10.1 % (21.0-51.0); %Monocytes 9.5 % (0.0-10.0); %Neutrophils 78.1 % (42.0-75.0); Hemoglobin 10.7 g/dL (14.0-18.0); Mean Corpuscular HGB CONC 31.1 g/dL (32.0-36.0); Mean Corpuscular Hemoglobin 30.2 pg (27.0-31.0); Mean Corpuscular Volume 97.2 fl (80.0-94.0); Mean Platelet Volume 9.2 fL (7.4-10.4); Platelet Count 224 thou/uL (130-400); Red Blood Cell (RBC) Count 3.55 mill/uL (4.70-6.10); White Blood Cell (WBC) Count 7.5 thou/uL (4.8-10.8)
[2017-05-07 05:24] LABS: ALT (SGPT) 20 U/L (8-55); AST (SGOT) 23 U/L (5-34); Albumin 3.1 g/dL (3.4-4.8); Alkaline Phosphatase 106 U/L (40-150); Anion Gap 11 mmol/L (10-20); BUN (Urea Nitrogen) 19 mg/dL (8.4-25.7); Bilirubin, Total 1.8 mg/dL (0.2-1.2); Calc. Creatinine Clearance 60 mL/min (70-130); Calcium 8.8 mg/dL (7.8-10.44); Carbon Dioxide 26 mmol/L (23-31); Chloride 108 mmol/L (98-107); Estimated GFR-MDRD 87; Globulin 2.7 g/dL (2.4-3.5); Glucose 91 mg/dL (83-110); Potassium 4.6 mmol/L (3.5-5.1); Protein, Total 5.8 g/dL (5.8-8.1); Sodium 140 mmol/L (136-145)
[2017-05-07] MEDS: Nitroglycerin 2% Ointment 1 INCH/1 GM Packet TOP SCH ×3 (05:42→21:29)
--- NOTE | 2017-05-07 08:11 | PDOC.PN ---
- Subjective Encounter Start Date: 05/07/17 Encounter Start Time: 09:15 Subjective: Patient without complaint. Kicked off covers again last night then -: temp dropped, returned up with bear hugger. No infectious symptoms. - Objective Resuscitation Status: Resuscitation Status DNR:Do Not Resuscitate MAR Reviewed: Yes Vital Signs & Weight: Vital Signs (12 hours) Temp Pulse Resp BP BP Pulse Ox 05/07/17 07:15 70 16 128/67 96 05/07/17 04:37 94.7 F L 73 20 128/60 96 05/06/17 20:48 138/67 Weight Admit Weight 161 lb Weight 155 lb 10.342 oz I&O: 05/06/17 05/07/17 05/08/17 06:59 06:59 06:59 Intake Total 500 340 Output Total 300 Balance 500 40 Result Diagrams: 05/07/17 04:46 05/07/17 04:46 Phys Exam - Physical Examination Constitutional: NAD HEENT: moist MMs Respiratory: no wheezing, no rales, no rhonchi, clear to auscultation bilateral Cardiovascular: RRR Gastrointestinal: soft, positive bowel sounds Musculoskeletal: no edema Neurological: non-focal, moves all 4 limbs Deviation from normal: Oriented to person, , not to time or place. Dx/Plan (1) Hypothermia Code(s): T68.XXXA - HYPOTHERMIA, INITIAL ENCOUNTER Status: Acute Comment: Recurrent 05/06 and 05/07. Cultures pending, no growth thus far. No other infectious signs. states this is common occurance at home. (2) CHF exacerbation Code(s): I50.9 - HEART FAILURE, UNSPECIFIED Status: Resolved Qualifiers: Congestive heart failure type: systolic Qualified Code(s): I50.23 - Acute on chronic systolic (congestive) heart failure Comment: EF 20-25% (3) FABIOLA (acute kidney injury) Code(s): N17.9 - ACUTE KIDNEY FAILURE, UNSPECIFIED Status: Resolved Comment : Cardiorenal syndrome (4) Demand ischemia of myocardium Code(s): I24.8 - OTHER FORMS OF ACUTE ISCHEMIC HEART DISEASE Status: Resolved (5) Afib Code(s): I48.91 - UNSPECIFIED ATRIAL FIBRILLATION Status: Chronic Qualifiers: Atrial fibrillation type: chronic Qualified Code(s): I48.2 - Chronic atrial fibrillation (6) CAD (coronary artery disease) Code(s): I25.10 - ATHSCL HEART DISEASE OF [place] CORONARY ARTERY W/O ANG PCTRS Status: Chronic Qualifiers: Coronary Disease-Associated Artery/Lesion type: [place] artery [place] vs. transplanted heart: [place] heart Associated angina: with stable angina Qualified Code(s): I25.118 - Atherosclerotic heart disease of [place] coronary artery with other forms of angina pectoris (7) CKD (chronic kidney disease) Code(s): N18.9 - CHRONIC KIDNEY DISEASE, UNSPECIFIED Status: Chronic Qualifiers: Chronic kidney disease stage: stage 3 (moderate) Qualified Code(s): N18.3 - Chronic kidney disease, stage 3 (moderate) (8) Dyslipidemia Code(s): E78.5 - HYPERLIPIDEMIA, UNSPECIFIED Status: Chronic (9) HTN (hypertension) Code(s): I10 - ESSENTIAL (PRIMARY) HYPERTENSION Status: Chronic Qualifiers: Hypertension type: essential hypertension Qualified Code(s): I10 - Essential (primary) hypertension (10) UTI (urinary tract infection) Status: Resolved Qualifiers: Urinary tract infection type: acute cystitis Comment: E. coli pansensitive, on Cipro , today last day (11) Hypokalemia Code(s): E87.6 - HYPOKALEMIA Status: Resolved (12) Delirium Code(s): R41.0 - DISORIENTATION, UNSPECIFIED Status: Chronic Comment: Hospital acquired due to unable to sleep, Haldol ineffective, on Seroquel - Plan cont current plan of care, PT/OT, forensic social worker Once temp stabilized can d/c once placement arranged. Plan for -: the [facility] when bed available. * . - Discharge Day Encounter end time: 09:25
[2017-05-07] MEDS: Famotidine 20 MG TAB PO SCH (08:43)
[2017-05-07] MEDS: Digoxin 0.125 MG TAB PO SCH (08:43)
[2017-05-07] MEDS: Enoxaparin Sodium 40 MG/0.4 ML SYRINGE SC SCH (08:43)
[2017-05-07] MEDS: Clopidogrel Bisulfate 75 MG TAB PO SCH (08:44)
[2017-05-07] MEDS: Carvedilol 6.25 MG TAB PO SCH ×2 (08:44→20:23)
[2017-05-07] MEDS: Vit A,C & E/Lutein/Minerals Tablet PO SCH ×2 (13:17→21:05)
--- NOTE | 2017-05-07 17:00 | CON ---
DATE OF CONSULTATION: 05/07/2017 CONSULTING PHYSICIAN: Hospitalist Service. IMPRESSION: Confusional state, likely secondary to several factors. PLAN: I agree with trying Seroquel, try to maintain normal sleep patterns. HISTORY OF PRESENT ILLNESS: Mr. River is an 87-year-old male with history of coronary artery dise ase, chronic atrial fibrillation who presented with congestive heart failure. He was also diagnosed with a urinary tract infection and he has had these issues addressed medically, but has had waxing an d waning mental status. He continues to have some hallucinations where he is picking at things in th e air. He has not had any short-term memory difficulties according to his prior to the onset of this. He has not been sleeping well since his admission to the hospital back at the end of March . PAST MEDICAL HISTORY: As listed above. ALLERGIES: None reported. PAST SURGICAL HISTORY: AICD. MEDICATIONS: List was reviewed. FAMILY HISTORY: Noncontributory. SOCIAL HISTORY: and lives in [place] with his . REVIEW OF SYSTEMS: The patient had no particular complaints. PHYSICAL EXAMINATION: VITAL SIGNS: Blood pressure 106/58, pulse 69, respirations 16, temperature 94.0. HEENT: Unremarkable. EXTREMITIES: No cyanosis noted. NEUROLOGIC: He is alert and cooperative. He is quite hard of hearing. His speech is fluent and parvin ar. He knew his age and his , but he did not know where he was. No abnormal movements were seen . His exam was otherwise nonfocal. LABORATORY STUDIES: Including CBC, coags, chemistry panel and urinalysis at this point had been unre markable other than urinary tract infection. Blood gas analysis showed pCO2 of 52 and an O2 of 58 on room air. SUMMARY: This is an elderly gentleman who has had some waxing and waning confusion since admission a nd has had evidence of infection, some mild metabolic problems as well as hypoxia. Nothing focal on exam. He was given some Ativan that might have aggravated the situation. I agree with Seroquel and we are going to check some further labs.
[2017-05-07] MEDS: Finasteride 5 MG TAB PO SCH (20:20)
[2017-05-07] MEDS: Aspirin 81 mg Enteric Coated Tablet PO SCH (20:20)
[2017-05-07] MEDS: Terazosin HCl 5 MG CAP PO SCH (20:21)
[2017-05-07] MEDS: Melatonin 3 MG TAB PO SCH (20:21)
[2017-05-08 04:30] LABS: Anion Gap 9 mmol/L (10-20); BUN (Urea Nitrogen) 20 mg/dL (8.4-25.7); Calc. Creatinine Clearance 63 mL/min (70-130); Calcium 9.1 mg/dL (7.8-10.44); Carbon Dioxide 28 mmol/L (23-31); Chloride 109 mmol/L (98-107); Estimated GFR-MDRD Greater than 90; Glucose 92 mg/dL (83-110); Potassium 4.4 mmol/L (3.5-5.1); Sodium 142 mmol/L (136-145)
[2017-05-08] MEDS: Nitroglycerin 2% Ointment 1 INCH/1 GM Packet TOP SCH ×3 (05:18→21:25)
[2017-05-08] MEDS: Digoxin 0.125 MG TAB PO SCH (08:17)
[2017-05-08] MEDS: Clopidogrel Bisulfate 75 MG TAB PO SCH (08:17)
[2017-05-08] MEDS: Carvedilol 6.25 MG TAB PO SCH ×2 (08:20→21:03)
[2017-05-08] MEDS: Famotidine 20 MG TAB PO SCH (08:28)
[2017-05-08] MEDS: Enoxaparin Sodium 40 MG/0.4 ML SYRINGE SC SCH (08:28)
--- NOTE | 2017-05-08 12:17 | PDOC.PN ---
- Subjective Encounter Start Date: 05/08/17 Encounter Start Time: 12:15 Subjective: pt dopes not talk much and reports that he feels ok -: reports slightly better mentation.restlessness at night -: would not keep covers on - Objective Resuscitation Status: Resuscitation Status DNR:Do Not Resuscitate Vital Signs & Weight: Vital Signs (12 hours) Temp Pulse Resp BP BP Pulse Ox 05/08/17 08:20 133/69 05/08/17 08:17 73 05/08/17 08:00 94.2 F L 73 16 05/08/17 07:30 94.2 F L 72 16 135/67 98 05/08/17 05:10 76 140/72 Weight Admit Weight 161 lb Weight 152 lb 1.903 oz I&O: 05/07/17 05/08/17 05/09/17 06:59 06:59 06:59 Intake Total 340 680 Output Total 300 Balance 40 680 Result Diagrams: 05/07/17 04:46 05/08/17 03:57 Additional Labs: Microbiology 04/20/17 18:10 Urine voided Urine Culture - Final Escherichia coli 04/20/17 17:20 Nasopharyngeal swab Influenza Types A,B Direct EIA - Final 05/06/17 16:37 Urine voided Urine Culture - Final NO GROWTH AT 36 HOURS 05/06/17 16:37 Urine voided Urine Culture - Preliminary NO GROWTH AT 12 HOURS 05/06/17 13:00 Venous blood - Right Hand Blood Culture - Preliminary Specimen has been received and culture in progress. No Growth to date. 05/06/17 13:00 Venous blood - Right Hand Blood Culture - Preliminary NO GROWTH AT 48 HOURS 05/06/17 12:56 Venous blood - Left Arm Blood Culture - Preliminary Specimen has been received and culture in progress. No Growth to date. 05/06/17 12:56 Venous blood - Left Arm Blood Culture - Preliminary NO GROWTH AT 48 HOURS Laboratory Tests 04/20/17 04/22/17 04/25/17 16:30 04:34 06:47 Creatinine 1.78 H 2.02 H 1.55 H 04/27/17 04/28/17 04/30/17 05:49 05:12 05:27 Creatinine 1.19 1.38 H 1.14 05/02/17 05/04/17 05/06/17 05:45 05:56 04:38 Creatinine 0.84 0.90 0.77 05/07/17 05/08/17 04:46 03:57 Creatinine 0.83 0.80 Phys Exam - Physical Examination Constitutional: NAD sitting up in chair HEENT: PERRLA, moist MMs, sclera anicteric, oral pharynx no lesions Neck: no JVD, supple Respiratory: no wheezing, no rales, no rhonchi, clear to auscultation bilateral Cardiovascular: RRR, no significant murmur Gastrointestinal: soft, non-tender, no distention, positive bowel sounds Musculoskeletal: no edema, pulses present Neurological: non-focal, normal sensation, moves all 4 limbs Psychiatric: normal affect, A&O x 3 Deviation from normal: oriented to self only Skin: no rash Dx/Plan (1) Systolic CHF, acute on chronic Code(s): I50.23 - ACUTE ON CHRONIC SYSTOLIC (CONGESTIVE) HEART FAILURE Status : Resolved Comment: Diuretics on hold due to FABIOLA (2) Hypothermia Code(s): T68.XXXA - HYPOTHERMIA, INITIAL ENCOUNTER Status: Acute Comment: Recurrent 05/06 and 05/07. Cultures pending, no growth thus far. No other infectious signs. states this is common occurance at home.[place] a response of cold weather outside with inability to keep himself warm (3) Afib Code(s): I48.91 - UNSPECIFIED ATRIAL FIBRILLATION Status: Chronic Qualifiers: Atrial fibrillation type: chronic Qualified Code(s): I48.2 - Chronic atrial fibrillation Comment: S/P Watchman procedure in past.Stable on Digoxin.AICD in place. (4) CAD (coronary artery disease) Code(s): I25.10 - ATHSCL HEART DISEASE OF [place] CORONARY ARTERY W/O ANG PCTRS Status: Chronic Qualifiers: Coronary Disease-Associated Artery/Lesion type: [place] artery [place] vs. transplanted heart: [place] heart Associated angina: with stable angina Qualified Code(s): I25.118 - Atherosclerotic heart disease of [place] coronary artery with other forms of angina pectoris Comment: on ASA,BB,Plavix. (5) CKD (chronic kidney disease) Code(s): N18.9 - CHRONIC KIDNEY DISEASE, UNSPECIFIED Status: Chronic Qualifiers: Chronic kidney disease stage: stage 3 (moderate) Qualified Code(s): N18.3 - Chronic kidney disease, stage 3 (moderate) (6) Delirium Code(s): R41.0 - DISORIENTATION, UNSPECIFIED Status: Chronic Comment: Hospital acquired due to unable to sleep, Haldol ineffective, on Seroquel (7) Dyslipidemia Code(s): E78.5 - HYPERLIPIDEMIA, UNSPECIFIED Status: Chronic (8) HTN (hypertension) Code(s): I10 - ESSENTIAL (PRIMARY) HYPERTENSION Status: Chronic Qualifiers: Hypertension type: essential hypertension Qualified Code(s): I10 - Essential (primary) hypertension (9) Demand ischemia of myocardium Code(s): I24.8 - OTHER FORMS OF ACUTE ISCHEMIC HEART DISEASE Status: Resolved (10) UTI (urinary tract infection) Status: Resolved Qualifiers: Urinary tract infection type: acute cystitis Comment: E. coli pansensitive,s/p Cipro.Repeat UA improved but with persistant bacteria.will send for Cx (11) Moderate protein-calorie malnutrition Code(s): E44.0 - MODERATE PROTEIN-CALORIE MALNUTRITION Status: Acute - Plan PT/OT, respiratory therapy, incentive spirometry, out of bed/ambulate, DVT proph w/SCDs Hypothermia due to cold temperature w Pt not keeping covers on -: will add Restoril prn.cont Seroquel BID.Melatonin hs -: hemodynamically stable. -: awiting placement.will get PT to eval. -: am labs * . Review of Systems - Review of Systems Other: can not be relaibly obtained due to dementia - Medications/Allergies Allergies/Adverse Reactions: Allergies Allergy/AdvReac Type Severity Reaction Status Date / Time No Known Allergies Allergy Verified 04/20/17 23:10 Medications: Current Medications Acetaminophen (Tylenol) 650 mg PO Q4H PRN PRN Reason: Headache/Fever or Pain Aspirin (Ecotrin) 81 mg PO HS [facility] Last Admin: 05/07/17 20:20 Dose: 81 mg Carvedilol (Coreg) 3.125 mg PO QAM [facility] Last Admin: 05/08/17 08:20 Dose: 3.125 mg Carvedilol (Coreg) 6.25 mg PO QPM [facility] Last Admin: 05/07/17 20:23 Dose: 6.25 mg Clopidogrel Bisulfate (Plavix) 75 mg PO DAILY [facility] Last Admin: 05/08/17 08:17 Dose: 75 mg Digoxin (Lanoxin) 0.125 mg PO DAILY [facility] Last Admin: 05/08/17 08:17 Dose: 0.125 mg Enoxaparin Sodium (Lovenox) 40 mg SC 0900 [facility] Last Admin: 05/08/17 08:28 Dose: 40 mg Famotidine (Pepcid) 20 mg PO QAM [facility] Last Admin: 05/08/17 08:28 Dose: 20 mg Finasteride (Proscar) 5 mg PO HS [facility] Last Admin: 05/07/17 20:20 Dose: 5 mg Guaifenesin (Mucinex) 1,200 mg PO Q12HR [facility] Melatonin (Melatonin) 6 mg PO HS [facility] Last Admin: 05/07/17 20:21 Dose: 6 mg Multivitamins/Minerals (Ocuvite With Lutein) 1 tab PO BID [facility] Last Admin: 05/07/17 21:05 Dose: 1 tab Nitroglycerin (Nitro-Bid 2% Ointment) 0.5 inch TOP Q8HR [facility] Last Admin: 05/08/17 05:18 Dose: 0.5 inch Ondansetron HCl (Zofran Odt) 4 mg PO Q6H PRN PRN Reason: Nausea/Vomiting Quetiapine Fumarate (Seroquel) 25 mg PO BID [facility] Last Admin: 05/08/17 08:17 Dose: 25 mg Sodium Chloride (Flush - Normal Saline) 10 ml IVF Q12HR [facility] Last Admin: 05/08/17 08:28 Dose: 10 ml Sodium Chloride (Flush - Normal Saline) 10 ml IVF PRN PRN PRN Reason: Saline Flush Last Admin: 04/29/17 14:04 Dose: 10 ml Terazosin HCl (Hytrin) 10 mg PO HS [facility] Last Admin: 05/07/17 20:21 Dose: 10 mg
[2017-05-08 12:22] LABS: Bilirubin Negative (Negative); Blood, Urine Negative (Negative); Clarity CLEAR (Clear); Glucose, Urine (Dipstick) Negative (Negative); Leukocyte Small (Negative); Nitrite Positive (Negative); Protein, Urine (Dipstick) Negative (Neg-Trace); Specific Gravity, Urine 1.019 (1.002-1.036)
[2017-05-08 12:24] LABS: Hyaline Casts/LPF 0-3 HYALINE CAST LPF (0-3 Hyaline); Pathc Cast-AUWi Flag 0.27 (0-2.49); RBC/HPF 0-3 HPF (0-3); Squamous Epithelial 0-3 HPF (0-3); WBC/HPF 0-3 HPF (0-3); Yeast-AUWi Flag 34.4 (0-25.0)
[2017-05-08 12:35] LABS: Bacteria/HPF 4+ HPF (None Seen)
[2017-05-08 12:36] LABS: Yeast-All Forms None Seen HPF (None Seen)
[2017-05-08] MEDS: guaiFENesin ER 600 MG TAB PO SCH ×2 (13:04→21:03)
[2017-05-08] MEDS: Vit A,C & E/Lutein/Minerals Tablet PO SCH ×2 (13:04→21:04)
[2017-05-08] MEDS: Finasteride 5 MG TAB PO SCH (21:03)
[2017-05-08] MEDS: Melatonin 3 MG TAB PO SCH (21:03)
[2017-05-08] MEDS: Aspirin 81 mg Enteric Coated Tablet PO SCH (21:03)
[2017-05-08] MEDS: Terazosin HCl 5 MG CAP PO SCH (21:04)
[2017-05-08] MEDS: Temazepam 15 MG CAP PO PRN (21:16)
[2017-05-09] MEDS: Nitroglycerin 2% Ointment 1 INCH/1 GM Packet TOP SCH ×2 (06:15→17:12)
[2017-05-09 06:30] LABS: Anion Gap 11 mmol/L (10-20); BUN (Urea Nitrogen) 21 mg/dL (8.4-25.7); Calc. Creatinine Clearance 64 mL/min (70-130); Calcium 9.1 mg/dL (7.8-10.44); Carbon Dioxide 27 mmol/L (23-31); Chloride 110 mmol/L (98-107); Estimated GFR-MDRD Greater than 90; Glucose 99 mg/dL (83-110); Potassium 4.6 mmol/L (3.5-5.1); Sodium 143 mmol/L (136-145)
[2017-05-09] MEDS: Digoxin 0.125 MG TAB PO SCH (08:39)
[2017-05-09] MEDS: Carvedilol 6.25 MG TAB PO SCH ×2 (08:39→20:04)
[2017-05-09] MEDS: Famotidine 20 MG TAB PO SCH (08:39)
[2017-05-09] MEDS: Enoxaparin Sodium 40 MG/0.4 ML SYRINGE SC SCH (08:46)
[2017-05-09] MEDS: guaiFENesin ER 600 MG TAB PO SCH ×2 (08:46→20:03)
[2017-05-09] MEDS: Vit A,C & E/Lutein/Minerals Tablet PO SCH ×2 (08:46→20:17)
[2017-05-09] MEDS: Clopidogrel Bisulfate 75 MG TAB PO SCH (08:46)
[2017-05-09 09:20] LABS: #Eosinphils 0.2 thou/uL (0.0-0.7); #Lymphocytes 0.9 thou/uL (1.20-3.40); #Monocytes 0.6 thou/uL (0.11-0.59); #Neutrophils 4.5 thou/uL (1.40-6.50); %Basophils 0.6 % (0.0-1.0); %Eosinophils 2.9 % (0.0-10.0); %Lymphocytes 14.5 % (21.0-51.0); %Monocytes 9.6 % (0.0-10.0); %Neutrophils 72.4 % (42.0-75.0); Hemoglobin 11.2 g/dL (14.0-18.0); Mean Corpuscular HGB CONC 30.6 g/dL (32.0-36.0); Mean Corpuscular Volume 97.9 fl (80.0-94.0); Mean Platelet Volume 9.6 fL (7.4-10.4); Platelet Count 170 thou/uL (130-400); RBC Distribution Width 15.1 % (11.5-14.5); Red Blood Cell (RBC) Count 3.75 mill/uL (4.70-6.10); White Blood Cell (WBC) Count 6.2 thou/uL (4.8-10.8)
[2017-05-09 12:18] VITALS: BMI 22.6
--- NOTE | 2017-05-09 12:31 | PDOC.PN ---
- Subjective Encounter Start Date: 05/09/17 Encounter Start Time: 12:29 Subjective: pt nods when asked if he feels OK -: reports better sleep last night & improved cognition today -: no new events/complaints - Objective Resuscitation Status: Resuscitation Status DNR:Do Not Resuscitate MAR Reviewed: Yes Vital Signs & Weight: Vital Signs (12 hours) Temp Pulse Resp BP BP BP Pulse Ox 05/09/17 08:39 75 150/76 H 05/09/17 08:00 95 F L 75 16 05/09/17 07:30 92.9 F L 75 16 133/70 98 05/09/17 04:16 69 16 112/68 93 L Weight Admit Weight 161 lb Weight 153 lb I&O: 05/08/17 05/09/17 05/10/17 06:59 06:59 06:59 Intake Total 680 370 150 Balance 680 370 150 Result Diagrams: 05/09/17 05:35 05/09/17 05:35 Additional Labs: Microbiology 04/20/17 18:10 Urine voided Urine Culture - Final Escherichia coli 04/20/17 17:20 Nasopharyngeal swab Influenza Types A,B Direct EIA - Final 05/06/17 16:37 Urine voided Urine Culture - Final NO GROWTH AT 36 HOURS 05/06/17 13:00 Venous blood - Right Hand Blood Culture - Preliminary NO GROWTH AT 48 HOURS 05/06/17 12:56 Venous blood - Left Arm Blood Culture - Preliminary NO GROWTH AT 48 HOURS Laboratory Tests 04/20/17 05/09/17 16:30 05:35 B-Natriuretic Peptide 1327.5 H 726.6 H Phys Exam - Physical Examination Constitutional: NAD sitting up in chair HEENT: PERRLA, moist MMs, sclera anicteric, oral pharynx no lesions Neck: no nodes, no JVD, supple, full ROM Respiratory: no wheezing, no rales, no rhonchi, clear to auscultation bilateral Cardiovascular: RRR, no significant murmur Gastrointestinal: soft, non-tender, no distention, positive bowel sounds Musculoskeletal: no edema, pulses present Neurological: non-focal, normal sensation, moves all 4 limbs Psychiatric: normal affect Skin: no rash Dx/Plan (1) Hypothermia Code(s): T68.XXXA - HYPOTHERMIA, INITIAL ENCOUNTER Status: Acute Comment: Recurrent 05/06 and 05/07. Cultures pending, no growth thus far. No other infectious signs. states this is common occurance at home.[place] a response of cold weather outside with inability to keep himself warm (2) Afib Code(s): I48.91 - UNSPECIFIED ATRIAL FIBRILLATION Status: Chronic Qualifiers: Atrial fibrillation type: chronic Qualified Code(s): I48.2 - Chronic atrial fibrillation Comment: S/P Watchman procedure in past.Stable on Digoxin.AICD in place. (3) CAD (coronary artery disease) Code(s): I25.10 - ATHSCL HEART DISEASE OF [place] CORONARY ARTERY W/O ANG PCTRS Status: Chronic Qualifiers: Coronary Disease-Associated Artery/Lesion type: [place] artery [place] vs. transplanted heart: [place] heart Associated angina: with stable angina Qualified Code(s): I25.118 - Atherosclerotic heart disease of [place] coronary artery with other forms of angina pectoris Comment: on ASA,BB,Plavix. (4) CKD (chronic kidney disease) Code(s): N18.9 - CHRONIC KIDNEY DISEASE, UNSPECIFIED Status: Chronic Qualifiers: Chronic kidney disease stage: stage 3 (moderate) Qualified Code(s): N18.3 - Chronic kidney disease, stage 3 (moderate) (5) Delirium Code(s): R41.0 - DISORIENTATION, UNSPECIFIED Status: Chronic Comment: Hospital acquired due to unable to sleep, Haldol ineffective, on Seroquel (6) Dyslipidemia Code(s): E78.5 - HYPERLIPIDEMIA, UNSPECIFIED Status: Chronic (7) HTN (hypertension) Code(s): I10 - ESSENTIAL (PRIMARY) HYPERTENSION Status: Chronic Qualifiers: Hypertension type: essential hypertension Qualified Code(s): I10 - Essential (primary) hypertension (8) Demand ischemia of myocardium Code(s): I24.8 - OTHER FORMS OF ACUTE ISCHEMIC HEART DISEASE Status: Resolved (9) UTI (urinary tract infection) Status: Resolved Qualifiers: Urinary tract infection type: acute cystitis Comment: E. coli pansensitive,s/p Cipro.repeat YUrine Cx 05/06/17 was negative.Repeat UA (05/08/16)improved but with persistant bacteria.will send for Cx (10) Moderate protein-calorie malnutrition Code(s): E44.0 - MODERATE PROTEIN-CALORIE MALNUTRITION Status: Acute (11) Systolic CHF, acute on chronic Code(s): I50.23 - ACUTE ON CHRONIC SYSTOLIC (CONGESTIVE) HEART FAILURE Status : Resolved Comment: Diuretics stopped due to FABIOLA.Euvolemic now - Plan plan discussed w/ family, PT/OT, out of bed/ambulate, DVT proph w/SCDs OK to DC to Rehab if accepted.Hemodynamically stable. -: HR controlled .cont digoxin.cont ASA,Plavix,Coreg -: cont restoril prn hs w melatonin hs.seroquel BID -: no evidence to suggest infection. -: BNP improved.no need for diuretics for now * . Review of Systems - Review of Systems Other: can not be obtained reliably due to dementia - Medications/Allergies Allergies/Adverse Reactions: Allergies Allergy/AdvReac Type Severity Reaction Status Date / Time No Known Allergies Allergy Verified 04/20/17 23:10 Medications: Current Medications Acetaminophen (Tylenol) 650 mg PO Q4H PRN PRN Reason: Headache/Fever or Pain Aspirin (Ecotrin) 81 mg PO HS [facility] Last Admin: 05/08/17 21:03 Dose: 81 mg Carvedilol (Coreg) 3.125 mg PO QAM [facility] Last Admin: 05/09/17 08:39 Dose: 3.125 mg Carvedilol (Coreg) 6.25 mg PO QPM [facility] Last Admin: 05/08/17 21:03 Dose: 6.25 mg Clopidogrel Bisulfate (Plavix) 75 mg PO DAILY [facility] Last Admin: 05/09/17 08:46 Dose: 75 mg Digoxin (Lanoxin) 0.125 mg PO DAILY [facility] Last Admin: 05/09/17 08:39 Dose: 0.125 mg Enoxaparin Sodium (Lovenox) 40 mg SC 0900 [facility] Last Admin: 05/09/17 08:46 Dose: 40 mg Famotidine (Pepcid) 20 mg PO QAM [facility] Last Admin: 05/09/17 08:39 Dose: 20 mg Finasteride (Proscar) 5 mg PO [facility] Last Admin: 05/08/17 21:03 Dose: 5 mg Guaifenesin (Mucinex) 1,200 mg PO Q12HR [facility] Last Admin: 05/09/17 08:46 Dose: 1,200 mg Melatonin (Melatonin) 6 mg PO [facility] Last Admin: 05/08/17 21:03 Dose: 6 mg Multivitamins/Minerals (Ocuvite With Lutein) 1 tab PO BID [facility] Last Admin: 05/09/17 08:46 Dose: 1 tab Nitroglycerin (Nitro-Bid 2% Ointment) 0.5 inch TOP Q8HR [facility] Last Admin: 05/09/17 06:15 Dose: Not Given Ondansetron HCl (Zofran Odt) 4 mg PO Q6H PRN PRN Reason: Nausea/Vomiting Quetiapine Fumarate (Seroquel) 25 mg PO BID [facility] Last Admin: 05/09/17 08:46 Dose: 25 mg Sodium Chloride (Flush - Normal Saline) 10 ml IVF Q12HR [facility] Last Admin: 05/09/17 08:47 Dose: 10 ml Sodium Chloride (Flush - Normal Saline) 10 ml IVF PRN PRN PRN Reason: Saline Flush Last Admin: 04/29/17 14:04 Dose: 10 ml Temazepam (Restoril) 15 mg PO HSPRN PRN PRN Reason: Insomnia Last Admin: 05/08/17 21:16 Dose: 15 mg Terazosin HCl (Hytrin) 10 mg PO HS [facility] Last Admin: 05/08/17 21:04 Dose: 10 mg
[2017-05-09] MEDS: Aspirin 81 mg Enteric Coated Tablet PO SCH (20:03)
[2017-05-09] MEDS: Finasteride 5 MG TAB PO SCH (20:04)
[2017-05-09] MEDS: Melatonin 3 MG TAB PO SCH (20:04)
[2017-05-09] MEDS: Terazosin HCl 5 MG CAP PO SCH (20:05)
[2017-05-10] MEDS: Nitroglycerin 2% Ointment 1 INCH/1 GM Packet TOP SCH ×3 (01:16→14:10)
[2017-05-10] MEDS: Temazepam 15 MG CAP PO PRN (01:20)
[2017-05-10 06:06] LABS: Anion Gap 13 mmol/L (10-20); BUN (Urea Nitrogen) 17 mg/dL (8.4-25.7); Calc. Creatinine Clearance 66 mL/min (70-130); Calcium 9.4 mg/dL (7.8-10.44); Carbon Dioxide 25 mmol/L (23-31); Chloride 110 mmol/L (98-107); Estimated GFR-MDRD Greater than 90; Glucose 84 mg/dL (83-110); Potassium 4.5 mmol/L (3.5-5.1); Sodium 143 mmol/L (136-145)
[2017-05-10] MEDS: guaiFENesin ER 600 MG TAB PO SCH (08:57)
[2017-05-10] MEDS: Clopidogrel Bisulfate 75 MG TAB PO SCH (08:57)
[2017-05-10] MEDS: Famotidine 20 MG TAB PO SCH (08:57)
[2017-05-10] MEDS: Digoxin 0.125 MG TAB PO SCH (08:57)
[2017-05-10] MEDS: Carvedilol 6.25 MG TAB PO SCH (08:57)
[2017-05-10] MEDS: Enoxaparin Sodium 40 MG/0.4 ML SYRINGE SC SCH (08:58)
[2017-05-10 11:25] VITALS: TEMP 96.5
--- NOTE | 2017-05-10 13:29 | PDOC.PN ---
- Subjective Encounter Start Date: 05/10/17 Encounter Start Time: 13:28 Subjective: feels much better as discussed with wide and daughter -: slept well last night with temazepam - Objective Resuscitation Status: Resuscitation Status DNR:Do Not Resuscitate MAR Reviewed: Yes Vital Signs & Weight: Vital Signs (12 hours) Temp Pulse Pulse Resp BP BP BP 05/10/17 08:57 71 150/76 H 05/10/17 08:50 96.5 F L 71 20 05/10/17 07:45 70 145/65 H 05/10/17 07:33 71 20 145/65 H Pulse Ox 05/10/17 08:57 05/10/17 08:50 96 05/10/17 07:45 05/10/17 07:33 96 Weight Admit Weight 161 lb Weight 155 lb I&O: 05/09/17 05/10/17 05/11/17 06:59 06:59 06:59 Intake Total 370 150 Balance 370 150 Result Diagrams: 05/09/17 05:35 05/10/17 05:25 Additional Labs: Microbiology 04/20/17 18:10 Urine voided Urine Culture - Final Escherichia coli 04/20/17 17:20 Nasopharyngeal swab Influenza Types A,B Direct EIA - Final 05/06/17 16:37 Urine voided Urine Culture - Final NO GROWTH AT 36 HOURS 05/08/17 12:12 Urine voided Urine Culture - Preliminary 05/06/17 13:00 Venous blood - Right Hand Blood Culture - Preliminary NO GROWTH AT 48 HOURS 05/06/17 12:56 Venous blood - Left Arm Blood Culture - Preliminary NO GROWTH AT 48 HOURS Phys Exam - Physical Examination Constitutional: NAD HEENT: PERRLA, moist MMs, sclera anicteric, oral pharynx no lesions Neck: no nodes, no JVD, supple, full ROM Respiratory: no wheezing, no rales, no rhonchi Cardiovascular: RRR, no significant murmur Gastrointestinal: soft, non-tender, no distention, positive bowel sounds Musculoskeletal: no edema, pulses present Neurological: non-focal, normal sensation, moves all 4 limbs Psychiatric: normal affect Deviation from normal: oriented to self Skin: no rash Dx/Plan (1) Hypothermia Code(s): T68.XXXA - HYPOTHERMIA, INITIAL ENCOUNTER Status: Resolved Comment : Recurrent 05/06 and 05/07. Cultures pending, no growth thus far. No other infectious signs. states this is common occurance at home.Liudmila a response of cold weather outside with inability to keep himself warm (2) Afib Code(s): I48.91 - UNSPECIFIED ATRIAL FIBRILLATION Status: Chronic Qualifiers: Atrial fibrillation type: chronic Qualified Code(s): I48.2 - Chronic atrial fibrillation Comment: S/P Watchman procedure in past.Stable on Digoxin.AICD in place. (3) CAD (coronary artery disease) Code(s): I25.10 - ATHSCL HEART DISEASE OF [place] CORONARY ARTERY W/O ANG PCTRS Status: Chronic Qualifiers: Coronary Disease-Associated Artery/Lesion type: [place] artery [place] vs. transplanted heart: [place] heart Associated angina: with stable angina Qualified Code(s): I25.118 - Atherosclerotic heart disease of [place] coronary artery with other forms of angina pectoris Comment: on ASA,BB,Plavix. (4) CKD (chronic kidney disease) Code(s): N18.9 - CHRONIC KIDNEY DISEASE, UNSPECIFIED Status: Chronic Qualifiers: Chronic kidney disease stage: stage 3 (moderate) Qualified Code(s): N18.3 - Chronic kidney disease, stage 3 (moderate) (5) Delirium Code(s): R41.0 - DISORIENTATION, UNSPECIFIED Status: Chronic Comment: Hospital acquired due to unable to sleep, Haldol ineffective, on Seroquel (6) Dyslipidemia Code(s): E78.5 - HYPERLIPIDEMIA, UNSPECIFIED Status: Chronic (7) HTN (hypertension) Code(s): I10 - ESSENTIAL (PRIMARY) HYPERTENSION Status: Chronic Qualifiers: Hypertension type: essential hypertension Qualified Code(s): I10 - Essential (primary) hypertension (8) Demand ischemia of myocardium Code(s): I24.8 - OTHER FORMS OF ACUTE ISCHEMIC HEART DISEASE Status: Resolved (9) UTI (urinary tract infection) Status: Resolved Qualifiers: Urinary tract infection type: acute cystitis Comment: E. coli pansensitive,s/p Cipro.repeat YUrine Cx 05/06/17 was negative.Repeat UA (05/08/16)improved but with persistant bacteria-Cx negative (10) Moderate protein-calorie malnutrition Code(s): E44.0 - MODERATE PROTEIN-CALORIE MALNUTRITION Status: Acute (11) Systolic CHF, acute on chronic Code(s): I50.23 - ACUTE ON CHRONIC SYSTOLIC (CONGESTIVE) HEART FAILURE Status : Resolved Comment: Diuretics stopped due to FABIOLA.Euvolemic now - Plan plan discussed w/ family, PT/OT, respiratory therapy, incentive spirometry, out of bed/ambulate, DVT proph w/SCDs clinically better.euvolemic and hemodynamically stable. -: OK to DC to rehab. -: cont meds as below * . Review of Systems - Review of Systems Other: can not be obtained relaibly due to dementia - Medications/Allergies Allergies/Adverse Reactions: Allergies Allergy/AdvReac Type Severity Reaction Status Date / Time No Known Allergies Allergy Verified 04/20/17 23:10 Medications: Current Medications Acetaminophen (Tylenol) 650 mg PO Q4H PRN PRN Reason: Headache/Fever or Pain Aspirin (Ecotrin) 81 mg PO HS [facility] Last Admin: 05/09/17 20:03 Dose: 81 mg Carvedilol (Coreg) 3.125 mg PO QAM [facility] Last Admin: 05/10/17 08:57 Dose: 3.125 mg Carvedilol (Coreg) 6.25 mg PO QPM [facility] Last Admin: 05/09/17 20:04 Dose: 6.25 mg Clopidogrel Bisulfate (Plavix) 75 mg PO DAILY [facility] Last Admin: 05/10/17 08:57 Dose: 75 mg Digoxin (Lanoxin) 0.125 mg PO DAILY [facility] Last Admin: 05/10/17 08:57 Dose: 0.125 mg Enoxaparin Sodium (Lovenox) 40 mg SC 0900 [facility] Last Admin: 05/10/17 08:58 Dose: 40 mg Famotidine (Pepcid) 20 mg PO QAM [facility] Last Admin: 05/10/17 08:57 Dose: 20 mg Finasteride (Proscar) [address] [facility] Last Admin: 05/09/17 20:04 Dose: 5 mg Guaifenesin (Mucinex) 1,200 mg PO Q12HR [facility] Last Admin: 05/10/17 08:57 Dose: 1,200 mg Melatonin (Melatonin) [address] [facility] Last Admin: 05/09/17 20:04 Dose: 6 mg Multivitamins/Minerals (Ocuvite With Lutein) 1 tab PO BID [facility] Last Admin: 05/09/17 20:17 Dose: Not Given Nitroglycerin (Nitro-Bid 2% Ointment) 0.5 inch TOP Q8HR [facility] Last Admin: 05/10/17 07:50 Dose: Not Given Ondansetron HCl (Zofran Odt) 4 mg PO Q6H PRN PRN Reason: Nausea/Vomiting Quetiapine Fumarate (Seroquel) 25 mg PO BID [facility] Last Admin: 05/10/17 08:57 Dose: 25 mg Sodium Chloride (Flush - Normal Saline) 10 ml IVF Q12HR [facility] Last Admin: 05/10/17 08:58 Dose: 10 ml Sodium Chloride (Flush - Normal Saline) 10 ml IVF PRN PRN PRN Reason: Saline Flush Last Admin: 04/29/17 14:04 Dose: 10 ml Temazepam (Restoril) 15 mg PO HSPRN PRN PRN Reason: Insomnia Last Admin: 05/10/17 01:20 Dose: 15 mg Terazosin HCl (Hytrin) 10 mg PO HS [facility] Last Admin: 05/09/17 20:05 Dose: 10 mg
[2017-05-10 14:10] VITALS: BP 104/58
[2017-05-10] MEDS: Vit A,C & E/Lutein/Minerals Tablet PO SCH (14:11)
--- NOTE | 2017-05-10 23:02 | DIS ---
DATE OF ADMISSION: 04/20/2017 DATE OF DISCHARGE: 05/10/2017 CONDITION AT THE TIME OF DISCHARGE: Stable and improved. DISCHARGE DIAGNOSES: 1. Acute on chronic systolic congestive heart failure. 2. Atrial fibrillation, paroxysmal in nature. 3. Urinary tract infection. 4. Hypothermia due to mechanical causes. 5. Coronary artery disease. 6. Chronic kidney disease, stage 3. 7. Hospital-induced delirium. 8. Dyslipidemia. 9. Hypertension. 10. Demand ischemia of the myocardium. 11. Moderate protein-calorie malnutrition. DISCHARGE DISPOSITION: Inpatient rehab. DISCHARGE MEDICATIONS: Carvedilol 3.125 mg in the morning and 6.25 mg in the evening, Plavix 75 mg a t bedtime, Hytrin 10 mg daily, multivitamin daily, melatonin 5 mg at bedtime, finasteride 5 mg at bed time, aspirin 81 mg daily, Seroquel 25 mg p.o. b.i.d., Zofran 4 mg every 6 hours as needed, Pepcid 20 mg in the morning, digoxin 0.125 mg p.o. daily, temazepam 15 mg p.o. at bedtime p.r.n. PRIMARY CARE PHYSICIAN: Milton Alberto MD PROCEDURES DONE IN THE HOSPITAL: Include, 1. Ultrasound of the lower extremities upon presentation, which is negative for any DVT in the right lower extremity. 2. Transthoracic echocardiogram shows EF of 20%-25% with severe left atrial dilatation and calcified aortic valve with peak gradient of 14 mmHg with valve area 1.6 cm2 with mildly elevated pulmonary ar terial pressures. 3. Multiple chest x-rays while he was in the hospital. CONSULTATIONS: Include, 1. Pulmonary Critical Care Medicine, Dr. Price. 2. Neurology, Dr. To. 3. Nephrology, Dr. Yu. 4. Cardiology, Dr. Horta. HISTORY OF PRESENTING ILLNESS : Mr. River is an 87-year-old male with past medical history of cor onary artery disease; ischemic cardiomyopathy, status post AICD placement in 08/2016; as well as hist ory of atrial flutter, status post Watchman device in the past who presented to the emergency room wi th complaints of 4-5 week history of increasing shortness of breath and dyspnea on exertion with some orthopnea and increased weight gain. He has increased his Lasix dose at home without any significan t benefit. Upon presentation, he was hemodynamically stable, but was febrile with a temperature of 1 00.1 and oxygen saturation 93% on room air. Chest x-ray suggested bilateral pulmonary edema consiste nt with CHF. He was admitted with a presumptive diagnosis of acute exacerbation of congestive heart failure, suspect diastolic as well as systolic. Please see admission history and physical for furthe r details. He was started on diuretics and echocardiogram was ordered and Cardiology was consulted. He had paced rhythm at 75 beats per minute on the EKG. He did have some mild acute kidney injury wi th creatinine of 1.78, likely due to cardiorenal syndrome. HOSPITAL COURSE: The patient was seen by Cardiology, Dr. Horta. An echo was done with the results above-mentioned. He was continued on diuretics and was continued on his home medications of aspirin and Plavix. He did have worsening renal function for which Nephrology was consulted and his diuretic s were eventually stopped. He remained euvolemic since then. He did have some hospital-induced delirium, for which Neurology was consulted. He was started on Ser oquel b.i.d. along with melatonin at bedtime along with temazepam at bedtime as needed, which signifi cantly improved his symptoms. Gradually, he had improvement in his symptoms, where he was back to his baseline and saturating on ro om air without any significant edema, and his renal failure has also normalized. His repeat BNP was checked and it was found to be 700 down from 1300 on presentation. He did have some episodes of hypothermia while in the hospital, but despite extensive repeated infect ious workup, it was found to be negative. The patient did not sleep well prior to the use of sedativ e and would throw away the covers. The temperatures outside and inside his room were very cold and h e would have drop in his core body temperature. Once he started to sleep throughout the night with t he covers on, his hypothermia has resolved. His blood cultures and urine cultures were checked. His initial urine culture grew E. coli on 2016 for which he received and finished the treatment with ciprofloxacin. Repeat blood cultures x2 w ere negative. Eventually, he was deemed hemodynamically stable to be transitioned to the next level of care. He wa s accepted and will be transferred to rehab shortly today. The patient was seen and examined prior to discharge. Please see hospitalist's progress note from to day's date for further details including [id number] interaction. Please note that the patient has had a prolonged hospitalization and I am taking care of him only for the last 3 days. I would refer the reader to the progress notes and [facility] records from day-to-day services for further details. Total time spent in the discharge of this patient, 35 minutes. I have discussed the discharge plan with the patient's and daughter who are in agreement. All t heir questions were answered and medications were reconciled. Please note that at this time, the pat ient is not being discharged on any diuretics, but if he starts to gain weight or if need be, Lasix c an be restarted with close monitoring of his renal function as well as electrolytes.
== END 2017-05-10 16:11 | DRG 871 ==
LOC: ERS 15:13 → 2NO 18:33 → ONC 04-30 13:14
PROVIDERS: ADMIT Family Medicine; ATTEND Family Medicine
DX: A41.51 Sepsis due to Escherichia coli [E. coli] (principal); I50.33 Acute on chronic diastolic (congestive) heart failure; N17.9 Acute kidney failure, unspecified; E44.0 Moderate protein-calorie malnutrition; E87.0 Hyperosmolality and hypernatremia; I24.8 Other forms of acute ischemic heart disease; T68.XXXA Hypothermia, initial encounter; I48.0 Paroxysmal atrial fibrillation; E87.5 Hyperkalemia; N30.00 Acute cystitis without hematuria; I13.0 Hypertensive heart and chronic kidney disease with heart failure and stage 1 through stage 4 chronic kidney disease, or unspecified chronic kidney disease; I25.5 Ischemic cardiomyopathy; D64.9 Anemia, unspecified; B96.20 Unspecified Escherichia coli [E. coli] as the cause of diseases classified elsewhere; E78.5 Hyperlipidemia, unspecified; E87.6 Hypokalemia; I25.2 Old myocardial infarction; Z95.810 Presence of automatic (implantable) cardiac defibrillator; Z79.01 Long term (current) use of anticoagulants; Z79.82 Long term (current) use of aspirin; N18.3 Chronic kidney disease, stage 3 (moderate); R41.0 Disorientation, unspecified; Z68.22 Body mass index [BMI] 22.0-22.9, adult; I25.118 Atherosclerotic heart disease of native coronary artery with other forms of angina pectoris; Z66 Do not resuscitate; Z87.891 Personal history of nicotine dependence
CPT/HCPCS: 36415; 36416; 71010; 71045; 80048; 80053; 80061; 81003; 81015; 82140; 82533; 82553; 82805; 83605; 83735; 83880; 84134; 84436; 84484; 85025; 85610; 85730; 87040; 87077; 87086; 87186; 93005; 93306; 93798; 96374; 96375; A4216; G8978-GP-CK; G8978-GP-CL; G8979-GP-CI; G8979-GP-CJ; G8987-GO-CJ; G8988-GO-CH; G8988-GO-CI; G8996-GN-CM; G8996-GN-CN; G8997-GN-CK; G8997-GN-CL; J0696; J1120; J1160; J1630; J1650; J1815; J1940; J2060; J2270; J3480; J3486; J7070; S0028

== ENCOUNTER 2017-05-20 13:06 | Inpatient (IN) | payer MEDICARE ==
[2017-05-20 13:43] LABS: Bilirubin Small (Negative); Blood, Urine Moderate (Negative); Clarity CLOUDY (Clear); Glucose, Urine (Dipstick) Negative (Negative); Leukocyte Moderate (Negative); Nitrite Negative (Negative); Protein, Urine (Dipstick) 100 mg/dL (Neg-Trace); Specific Gravity, Urine 1.021 (1.002-1.036); Urobilinogen 0.2 mg/dL (0.2-1.0); pH, Urine 5.5 (5.0-9.0)
[2017-05-20 13:45] LABS: Bacteria/HPF None Seen HPF (None Seen); Pathc Cast-AUWi Flag 1.35 (0-2.49); Squamous Epithelial 0-3 HPF (0-3); WBC/HPF 21-50 HPF (0-3); Yeast-AUWi Flag 23.7 (0-25.0)
[2017-05-20 13:55] LABS: Renal Epithelial None Seen HPF (0-3); Transitional Epithelial NONE SEEN HPF (0-3); Yeast-All Forms 1+ HPF (None Seen)
[2017-05-20 13:56] LABS: Crystals/HPF 1+ AMORPH URATES HPF (Negative); Hyaline Casts/LPF 0-3 HYALINE CAST LPF (0-3 Hyaline)
[2017-05-20 14:10] LABS: Hemoglobin 11.5 g/dL (14.0-18.0); Mean Corpuscular HGB CONC 31.2 g/dL (32.0-36.0); Mean Corpuscular Hemoglobin 30.3 pg (27.0-31.0); Mean Corpuscular Volume 97.2 fl (80.0-94.0); Mean Platelet Volume 12.7 fL (7.4-10.4); Platelet Count 62 thou/uL (130-400); RBC Distribution Width 16.5 % (11.5-14.5); Red Blood Cell (RBC) Count 3.79 mill/uL (4.70-6.10); White Blood Cell (WBC) Count 10.8 thou/uL (4.8-10.8)
[2017-05-20] MEDS ORDERED: Vancomycin HCl 1.5 GM in Sodium Chloride 0.9% 250 ML 300 ML IVPB SCH (14:15)
[2017-05-20 14:20] LABS: ALT (SGPT) 57 U/L (8-55); AST (SGOT) 71 U/L (5-34); Albumin 3.6 g/dL (3.4-4.8); Alkaline Phosphatase 142 U/L (40-150); Anion Gap 16 mmol/L (10-20); BUN (Urea Nitrogen) 48 mg/dL (8.4-25.7); Bilirubin, Total 1.6 mg/dL (0.2-1.2); CK (CPK) 156 U/L (30-200); Calc. Creatinine Clearance 0 mL/min (70-130); Calcium 9.5 mg/dL (7.8-10.44); Carbon Dioxide 29 mmol/L (23-31); Chloride 104 mmol/L (98-107); Estimated GFR-MDRD 44; Globulin 3.2 g/dL (2.4-3.5); Glucose 114 mg/dL (83-110); Lipase 38 U/L (8-78); Magnesium 2.9 mg/dL (1.6-2.6); Potassium 5.9 mmol/L (3.5-5.1); Protein, Total 6.8 g/dL (5.8-8.1); Sodium 143 mmol/L (136-145)
[2017-05-20 14:22] LABS: Anisocytosis SLIGHT = 6-15 cells (100X) (0-5/hpf); Band 27 % (5-11); Lymphocytes 6 % (21-51); MDiff Complete? YES; Neutrophil 66 % (42-75); Nucleated RBC 3 % (0); Ovalocytes SLIGHT = 2-5 cells (100X) (0-1/hpf); PLT Morphology Comment Appears Decreased; Polychromasia SLIGHT = 2-3 cells (100X) (0-2/hpf); Reactive Lymphocytes 1 % (0-10); Target Cells SLIGHT = 2-5 cells (100X) (0-1/hpf)
[2017-05-20 14:24] LABS: Troponin I 0.231 ng/mL (< 0.028)
[2017-05-20 14:27] LABS: CKMB 28.9 ng/mL (0-6.6)
--- NOTE | 2017-05-20 14:29 | RAD ---
AP VIEW CHEST: Date: 05/20/17 HISTORY: Altered mental status. FINDINGS: Comparison made to previous exam from 05/18/17. AP view chest demonstrates cardiomegaly. A dual lead intracardiac defibrillator is in place. Bilatera l pleural effusions seen. Pulmonary vascular congestion is noted. Diffuse air space opacities seen th roughout the lungs, unchanged since the previous comparison exam from two days earlier. IMPRESSION: Cardiomegaly, pulmonary vascular congestion, and pulmonary edema, as well as bilateral pleural effusi ons. Findings compatible with congestive heart failure. POS: [facility]
[2017-05-20] MEDS ORDERED: ISOVUE-370 76%-LOCM 1 ML ONE (14:36)
--- NOTE | 2017-05-20 15:05 | CT ---
CT BRAIN WITHOUT CONTRAST: Date: 05/20/17 HISTORY: Altered mental status. COMPARISON: CT brain dated 03/16/14. FINDINGS: Streak artifact limits the examination from the cochlear implant. No acute territorial infarct or hem orrhage. No midline shift or mass effect. Calvarium is intact. Paranasal sinuses and mastoids are parvin ar. Moderate microvascular ischemic changes with atrophy. IMPRESSION: No acute intracranial abnormality. No significant change from 2013. POS: [facility]
--- NOTE | 2017-05-20 16:12 | CT ---
CT ANGIO CHEST WITH CONTRAST: Date: 05/20/17 HISTORY: Altered mental status. COMPARISON: Chest radiograph from same date. FINDINGS: CT angiogram chest performed after the intravenous administration of contrast. 3D rendering provided. No proximal segmental pulmonary arterial filling defect. Pulmonary trunk measures 27 mm. Large right and moderate left layering pleural effusion. The left pleural effusion involves approxima tely 50% of the hemithorax. There is small volume ascites in the abdomen. There is third spacing of f luid. Right atrium is dilated. There is reflux of contrast in the suprahepatic IVC, as well as the he patic veins. There is moderate pulmonary edema. There also are air space opacities within the lower lobes, right m iddle lobe, and lingula, predominantly along the hilum, may reflect alveolar edema. No compression fracture of thoracic spine. IMPRESSION: 1. No proximal segmental pulmonary arterial filling defect. 2. Asymmetric enlargement right psoas muscle relative to the left. This may reflect chronic changes versus hematoma. 3. Congestive heart failure. 4. Large right pleural effusion and moderate left pleural effusion. 5. Moderate pulmonary edema. 6. Occlusion device left atrial appendage. A nonemergent follow-up CT of the abdomen and pelvis may be beneficial to evaluate for differences in the psoas muscle size. POS: [facility]
[2017-05-20] MEDS ORDERED: Aspirin 325 MG TAB ONE (17:29)
[2017-05-20] MEDS ORDERED: Furosemide 20 MG/2 ML VIAL ONE (17:29)
[2017-05-20 18:56] LABS: Lactic Acid 2.1 mmol/L (0.5-2.2)
[2017-05-20 19:05] LABS: Troponin I 0.247 ng/mL (< 0.028)
--- NOTE | 2017-05-20 19:41 | HP ---
DATE OF ADMISSION: 05/20/2017 CHIEF COMPLAINT: Altered mental status. HISTORY OF PRESENT ILLNESS: This is an 87-year-old white male, who was recently admitted to the hosp ital for UTI and he was discharged to a rehab facility with urine culture growing Staphylococcus homi nis, which was sensitive to most of the antibiotics except for vancomycin. It was noted that the pat ient was declining at the rehab center and his mental status completely changed yesterday. Yesterday , they started him on one dose of vancomycin, but because of the worsening mental status, they had to bring him back to the ER. The patient was seen along with his at the bedside and she did expla in that the patient always expressed want to be a DNR. His mental status has progressively got worse anson for the past 2-3 days. He denies having any chest pain. No history of nausea or vomiting. No h istory of fever. The patient has a known history of coronary artery disease, history of OR, and also has a pacemaker a nd AICD placed in 2016. He has known history of hypertension and hyperlipidemia, all are well contro lled at this time. Unable to get any history from the patient as he is completely disoriented. PAST MEDICAL HISTORY: 1. Coronary artery disease. 2. Status post myocardial infarction. 3. Chronic atrial fibrillation. 4. Hyperlipidemia. 5. Hypertension. PAST SURGICAL HISTORY: 1. Hernia repair. 2. Pacemaker implantation in 08/2016 and AICD in 10/2016, had a Watchman procedure in [place]. FAMILY HISTORY: Negative for any clotting or bleeding disorders. SOCIAL HISTORY: No history of smoking. No history of alcohol. No history of illicit drug use. He lives with his at home. ALLERGIES: No known drug allergies. HOME MEDICATIONS: 1. Aspirin 81 mg p.o. at bedtime. 2. Carvedilol 3.125 mg p.o. daily. 3. Plavix 75 mg p.o. at bedtime. 4. Digoxin 0.125 mg p.o. daily. 5. Famotidine 20 mg p.o. daily. 6. Finasteride 5 mg p.o. at bedtime. 7. Melatonin 5 mg p.o. at bedtime. 8. Quetiapine 25 mg p.o. b.i.d. 9. Temazepam 15 mg p.o. at bedtime. 10. Terazosin 2 mg p.o. at bedtime. REVIEW OF SYSTEMS: Could not be obtained as the patient is completely disoriented and most of the re view of systems have been completed through discussion with the patient's at the bedside. PHYSICAL EXAMINATION: VITAL SIGNS: Blood pressures are 110/80, heart rate is 88, respiratory rate 19, saturation is 98% on 3 liters. GENERAL: The patient is moderately built and moderately nourished. He does not appear in acute dist ress. HEENT: Atraumatic, normocephalic. PERRLA. Extraocular movements were intact. CARDIOVASCULAR: S1, S2 normal. No murmurs, rubs, or gallops. LUNGS: Bilateral air entry was equal. No wheezing, no crackles. ABDOMEN: Soft, nontender. No guarding. No rebound tenderness. Bowel sounds are normal. MUSCULOSKELETAL: No calf tenderness. No pedal edema. EXTREMITIES: No joint redness. No joint swelling. SKIN: No cyanosis, no erythema, no rash, no pallor. CENTRAL NERVOUS SYSTEM: Cranial nerve examination could not be done as the patient is not responding to any commands because of the altered mental status. LYMPHADENOPATHY: No evidence of any generalized lymphadenopathy was noted. LABORATORY DATA: WBC 10.8, hemoglobin is 11.5, hematocrit is 36.9, platelets are 62. Sodium 143, po tassium 5.9, chloride 104, BUN 48, creatinine 1.49. Lactic acid 3.0, magnesium 2.9, total bilirubin 1.6, elevated AST and ALT, elevated troponin of 0.23, and BNP of 684.5. ASSESSMENT: 1. Acute metabolic encephalopathy, likely secondary to urinary tract infection. 2. Non-ST elevation myocardial infarction. 3. Hyperkalemia. 4. Acute kidney injury on chronic kidney disease stage 3. 5. Acute congestive heart failure, likely systolic dysfunction. 6. Acute thrombocytopenia. 7. History of chronic atrial fibrillation. 8. History of chronic hypertension. PLAN: 1. The plan is to continue the patient on vancomycin at this time. This was based on the cultures f rom the rehab facility which was growing Staphylococcus hominis. We will continue with this antibiot ic at this time and we will renally dose the medication. We will closely monitor the patient to see if his mental status returns back. If his mental status is not coming back, either it could be secon hortencia to cardiogenic shock or possibly some neurologic sequelae. I explained to the at the [facility], the patient could be having a vascular dementia which could be getting worse secondary to congest hafsa heart failure. 2. The patient has elevated troponins, most likely from demand ischemia. We will continue to monito r this patient and we will start the patient on Lasix 20 mg IV b.i.d. 3. The patient has history of atrial fibrillation. We will continue the patient on home medications for rate control. 4. The patient has history of thrombocytopenia. We will closely monitor for any bleeding. We will get a CT of the head to look for any evidence of intracranial hemorrhage. Initial CT was negative. 5. DVT prophylaxis is Lovenox. I spent 75 minutes on this patient.
[2017-05-20] MEDS ORDERED: HYDROcodone/Acetaminophen 5/325 mg Tablet PO PRN (21:04)
[2017-05-20] MEDS ORDERED: Acetaminophen 325 MG TAB PO PRN (21:04)
[2017-05-20] MEDS ORDERED: Ondansetron HCl/PF 4 MG/2 ML Vial IVP PRN (21:04)
[2017-05-20] MEDS ORDERED: HYDROcodone/Acetaminophen 7.5/325 mg Tablet PO PRN (21:04)
[2017-05-20] MEDS ORDERED: Sodium Chloride 0.9% 500 ML IV SCH (21:04)
[2017-05-20 21:37] LABS: Troponin I 0.237 ng/mL (< 0.028)
[2017-05-21] MEDS: Carvedilol 3.125 MG TAB PO SCH ×3 (00:11→22:03)
[2017-05-21] MEDS: Finasteride 5 MG TAB PO SCH ×2 (00:12→22:04)
[2017-05-21] MEDS: Docusate 100 MG CAP PO SCH ×3 (00:12→22:03)
[2017-05-21] MEDS: Clopidogrel Bisulfate 75 MG TAB PO SCH ×2 (00:12→22:03)
[2017-05-21] MEDS: Terazosin HCl 5 MG CAP PO SCH ×2 (00:13→22:42)
[2017-05-21 00:55] VITALS: BMI 22.6
[2017-05-21 05:58] LABS: Anion Gap 14 mmol/L (10-20); BUN (Urea Nitrogen) 49 mg/dL (8.4-25.7); Calc. Creatinine Clearance 38 mL/min (70-130); Carbon Dioxide 27 mmol/L (23-31); Chloride 106 mmol/L (98-107); Estimated GFR-MDRD 51; Glucose 92 mg/dL (83-110); Potassium 4.8 mmol/L (3.5-5.1); Sodium 142 mmol/L (136-145)
[2017-05-21 06:17] LABS: Band 9 % (5-11); Eosinophils 1 % (0-10); Hemoglobin 11.3 g/dL (14.0-18.0); Lymphocytes 8 % (21-51); MDiff Complete? YES; Macrocytosis SLIGHT = 6-15 cells (100X) (0-5/hpf); Mean Corpuscular HGB CONC 31.8 g/dL (32.0-36.0); Mean Corpuscular Hemoglobin 30.7 pg (27.0-31.0); Mean Corpuscular Volume 96.6 fl (80.0-94.0); Mean Platelet Volume 12.3 fL (7.4-10.4); Monocytes 8 % (0-10); Myelocyte 1 % (0-0); Neutrophil 73 % (42-75); Nucleated RBC 2 % (0); PLT Morphology Comment Appears Decreased; Platelet Count 64 thou/uL (130-400); RBC Distribution Width 16.2 % (11.5-14.5); Red Blood Cell (RBC) Count 3.67 mill/uL (4.70-6.10); White Blood Cell (WBC) Count 11.3 thou/uL (4.8-10.8)
[2017-05-21] MEDS: Digoxin 0.125 MG TAB PO SCH (08:58)
[2017-05-21] MEDS ORDERED: Lisinopril 2.5 MG TAB PO SCH (09:00)
[2017-05-21] MEDS: Enoxaparin Sodium 40 MG/0.4 ML SYRINGE SC SCH (09:04)
[2017-05-21] MEDS: Famotidine/PF 20 mg/2ml Vial SLOW IVP SCH (09:04)
--- NOTE | 2017-05-21 12:17 | PDOC.PN ---
- Subjective Encounter Start Date: 05/21/17 Encounter Start Time: 08:00 -: old records requested/rev Pt seen and examined, chart reviewed in its entirety, this is my first visit with this patient Pt nonverbal, case discussed with his son on rounds, came back to discuss with his . Pt was doing well at rehab, was awake and alert until just a few days ago. had trouble sleeping and given 6mg of melatonin 4 days ago without much affect. given 9mg 3 days prior to admit and slept for almost 24 hours. Was okay sunday morning but in the evening began to be altered, and was brought in for AMS. pt somnolent since arrival. findings and plan conveyed to family - Objective Resuscitation Status: Resuscitation Status DNR:Do Not Resuscitate MAR Reviewed: Yes Vital Signs & Weight: Vital Signs (12 hours) Temp Pulse Pulse Resp BP BP Pulse Ox 05/21/17 11:37 97.4 F L 69 20 129/70 96 05/21/17 08:58 70 05/21/17 08:40 97 127/77 05/21/17 08:00 97.4 F L 70 18 97 05/21/17 07:25 97.4 F L 70 18 147/71 H 97 05/21/17 06:00 97.8 F 71 25 H 135/70 92 L Weight Weight 158 lb 6.4 oz I&O: 05/20/17 05/21/17 05/22/17 06:59 06:59 06:59 Intake Total 335 Balance 335 Result Diagrams: 05/21/17 05:31 05/21/17 05:31 Radiology Reviewed by me: Yes EKG Reviewed by me: Yes Phys Exam - Physical Examination Constitutional: NAD HEENT: PERRLA, sclera anicteric, oral pharynx no lesions mm tacky Neck: no nodes, no JVD, supple, full ROM decreased BS to both bases, midlung crackles. no wheezing, no prolonged ex Cardiovascular: RRR, no significant murmur, no rub Gastrointestinal: soft, non-tender, no distention, positive bowel sounds Musculoskeletal: pulses present, edema present Neurological: non-focal, normal sensation, moves all 4 limbs Lymphatic: no nodes Deviation from normal: sedate, withdrawls from light tactile stimuli. Skin: no rash, normal turgor, cap refill <2 seconds Dx/Plan (1) Metabolic encephalopathy Code(s): G93.41 - METABOLIC ENCEPHALOPATHY Status: Acute Comment: suspect related to meds and FABIOLA or infection. symmetric psoas enlarge,ent on CT, UTI present, though no bacteria seen, Cx neg at 24 hours. afebrile, watch CBC, Cr. (2) Moderate protein-calorie malnutrition Code(s): E44.0 - MODERATE PROTEIN-CALORIE MALNUTRITION Status: Acute Comment : due to decreased po tnake for the last [address] consult - pt likely too sleepy to eat. Will discuss with DFT (3) Afib Code(s): I48.91 - UNSPECIFIED ATRIAL FIBRILLATION Status: Chronic Qualifiers: Atrial fibrillation type: chronic Qualified Code(s): I48.2 - Chronic atrial fibrillation Comment: S/P Watchman procedure in past.Stable on Digoxin.AICD in place. (4) CAD (coronary artery disease) Code(s): I25.10 - ATHSCL HEART DISEASE OF [place] CORONARY ARTERY W/O ANG PCTRS Status: Chronic Qualifiers: Coronary Disease-Associated Artery/Lesion type: [place] artery [place] vs. transplanted heart: [place] heart Associated angina: with stable angina Qualified Code(s): I25.118 - Atherosclerotic heart disease of [place] coronary artery with other forms of angina pectoris Comment: on ASA,BB,Plavix on hold due to inability to swallow (5) Dyslipidemia Code(s): E78.5 - HYPERLIPIDEMIA, UNSPECIFIED Status: Chronic (6) Demand ischemia of myocardium Code(s): I24.8 - OTHER FORMS OF ACUTE ISCHEMIC HEART DISEASE Status: Resolved (7) UTI (urinary tract infection) Status: Resolved Qualifiers: Urinary tract infection type: acute cystitis Comment: E. coli pansensitive,s/p Cipro. Repeat Urine Cx 05/06 neg. Repeat UA ( 05/08/16)improved but with persistant bacteria- Cx with CoNS - doubt pathogenic. D/C'd to rehab without Rx appropriately. Back now iwth reactiv eurine, but no bacteria, 1+ yeast. Will Rx. - Plan cont current plan of care, continue antibiotics, PT/OT, school social worker, speech therapy, DVT proph w/SCDs * .
[2017-05-21] MEDS: Sodium Chloride 0.9% 1,000 ML IV SCH (13:11)
[2017-05-21] MEDS: Vancomycin HCl 1 GM in Premix Bag 1 BAG IVPB SCH (15:27)
[2017-05-22 06:31] LABS: Anion Gap 16 mmol/L (10-20); BUN (Urea Nitrogen) 42 mg/dL (8.4-25.7); Calc. Creatinine Clearance 45 mL/min (70-130); Calcium 8.5 mg/dL (7.8-10.44); Carbon Dioxide 23 mmol/L (23-31); Chloride 111 mmol/L (98-107); Estimated GFR-MDRD 62; Glucose 83 mg/dL (83-110); Magnesium 2.9 mg/dL (1.6-2.6); Potassium 4.6 mmol/L (3.5-5.1); Sodium 145 mmol/L (136-145)
[2017-05-22 06:35] LABS: Band 20 % (5-11); Hemoglobin 11.1 g/dL (14.0-18.0); Lymphocytes 6 % (21-51); MDiff Complete? YES; Mean Corpuscular HGB CONC 28.9 g/dL (32.0-36.0); Mean Corpuscular Volume 96.6 fl (80.0-94.0); Monocytes 11 % (0-10); Neutrophil 63 % (42-75); Nucleated RBC 1 % (0); PLT Morphology Comment Appears Decreased; Platelet Count 46 thou/uL (130-400); RBC Distribution Width 16.3 % (11.5-14.5); Red Blood Cell (RBC) Count 3.96 mill/uL (4.70-6.10); White Blood Cell (WBC) Count 10.5 thou/uL (4.8-10.8)
[2017-05-22] MEDS: Carvedilol 3.125 MG TAB PO SCH ×2 (08:30→22:25)
[2017-05-22] MEDS: Digoxin 0.125 MG TAB PO SCH (08:31)
[2017-05-22] MEDS: Docusate 100 MG CAP PO SCH ×2 (08:31→22:25)
[2017-05-22] MEDS: Enoxaparin Sodium 40 MG/0.4 ML SYRINGE SC SCH (08:31)
[2017-05-22] MEDS: Famotidine/PF 20 mg/2ml Vial SLOW IVP SCH (08:31)
--- NOTE | 2017-05-22 11:39 | PDOC.PN ---
- Subjective Encounter Start Date: 05/22/17 Encounter Start Time: 09:00 -: non-verbal Pt stable overnight, trnasferred to medicla floor. Pt more arousable, but still incoherent. Pt had no Seroquel over last few days prior to admit. No f/C , no n/V/D/c, son at bedside notes thick secretion. No other acute events ROS not obtainable - Objective Resuscitation Status: Resuscitation Status DNR:Do Not Resuscitate MAR Reviewed: Yes Vital Signs & Weight: Vital Signs (12 hours) Temp Pulse Pulse Resp BP BP Pulse Ox 05/22/17 09:53 93 114/66 05/22/17 08:31 67 05/22/17 08:00 97.4 F L 67 14 94 L 05/22/17 07:38 97.4 F L 67 14 103/73 94 L 05/22/17 04:00 97.3 F L 70 22 H 138/84 92 L 05/22/17 00:00 97.3 F L 70 20 124/78 92 L Pulse Ox 05/22/17 09:53 92 L 05/22/17 08:31 05/22/17 08:00 05/22/17 07:38 05/22/17 04:00 05/22/17 00:00 Weight Weight 159 lb I&O: 05/21/17 05/22/17 05/23/17 06:59 06:59 06:59 Intake Total 335 600 Balance 335 600 Result Diagrams: 05/22/17 05:38 05/22/17 05:38 Radiology Reviewed by me: Yes EKG Reviewed by me: Yes Phys Exam - Physical Examination Constitutional: NAD arousable, but incoherent, stirs, barely opens eyes MM tacky. Neck: no nodes, no JVD, supple, full ROM coarse bilateral BS, upper gurgling transmitted down dullness to both bases Cardiovascular: RRR, no significant murmur, no rub Gastrointestinal: soft, non-tender, no distention, positive bowel sounds Musculoskeletal: pulses present, edema present LUE much more than RUE, 1+ BLE Neurological: moves all 4 limbs Skin: no rash, normal turgor, cap refill <2 seconds Dx/Plan (1) Metabolic encephalopathy Code(s): G93.41 - METABOLIC ENCEPHALOPATHY Status: Acute Comment: suspect related to meds and FABIOLA or infection. symmetric psoas enlarge,ent on CT, UTI present, though no bacteria seen, Cx with yeast. Start fluc, stop Vanc. afebrile, watch CBC, Cr. (2) Moderate protein-calorie malnutrition Code(s): E44.0 - MODERATE PROTEIN-CALORIE MALNUTRITION Status: Acute Comment : due to decreased po tnake for the last [address] consult - pt likely too sleepy to eat. Will discuss with DFT (3) Afib Code(s): I48.91 - UNSPECIFIED ATRIAL FIBRILLATION Status: Chronic Qualifiers: Atrial fibrillation type: chronic Qualified Code(s): I48.2 - Chronic atrial fibrillation Comment: S/P Watchman procedure in past.Stable on Digoxin.AICD in place. (4) CAD (coronary artery disease) Code(s): I25.10 - ATHSCL HEART DISEASE OF [place] CORONARY ARTERY W/O ANG PCTRS Status: Chronic Qualifiers: Coronary Disease-Associated Artery/Lesion type: [place] artery [place] vs. transplanted heart: [place] heart Associated angina: with stable angina Qualified Code(s): I25.118 - Atherosclerotic heart disease of [place] coronary artery with other forms of angina pectoris Comment: on ASA,BB,Plavix on hold due to inability to swallow (5) Dyslipidemia Code(s): E78.5 - HYPERLIPIDEMIA, UNSPECIFIED Status: Chronic (6) Demand ischemia of myocardium Code(s): I24.8 - OTHER FORMS OF ACUTE ISCHEMIC HEART DISEASE Status: Resolved Comment: resolved (7) UTI (urinary tract infection) Status: Resolved Qualifiers: Urinary tract infection type: acute cystitis Hematuria presence: without hematuria Qualified Code(s): N30.00 - Acute cystitis without hematuria Comment: E. coli pansensitive,s/p Cipro. Repeat Urine Cx 05/06 neg. Repeat UA ( 05/08/16)improved but with persistant bacteria- Cx with CoNS - doubt pathogenic. D/C'd to rehab without Rx appropriately. Back now iwth reactiv eurine, but no bacteria, 1+ yeast. Will Rx. (8) Moderate dehydration Code(s): E86.0 - DEHYDRATION Status: Acute Comment: on IV fluids carefully. Cr improving, BP trending upwards (9) FABIOLA (acute kidney injury) Code(s): N17.9 - ACUTE KIDNEY FAILURE, UNSPECIFIED Status: Resolved Comment : Cardiorenal syndrome compounded by dehydration. impvroing with fluids (10) Pleural effusion Code(s): J90 - PLEURAL EFFUSION, NOT ELSEWHERE CLASSIFIED Status: Acute Comment: well seek pulm opinion regarding tapping or not - Plan cont current plan of care, plan discussed w/ family, continue antibiotics, PT/OT , respiratory therapy, DVT proph w/lovenox * .
[2017-05-22] MEDS: Fluconazole In NaCl,Iso-Osm 200 MG in Premix Bag 1 BAG IVPB SCH ×2 (12:58)
--- NOTE | 2017-05-22 13:49 | ULT ---
LEFT UPPER EXTREMITY VENOUS DUPLEX SONOGRAM: HISTORY: Left arm pain and edema. FINDINGS: Good color and good spectral Doppler flow are present within the left internal jugular and subclavian veins and within the axillary, brachial, and cephalic veins. At the antecubital fossa, the basilic vein is incompletely compressible with internal echoes apparent. IMPRESSION: Focal thrombus within the left basilic vein at the antecubital fossa. No involvement of the deep lynette ous structures. POS: [facility]
--- NOTE | 2017-05-22 14:02 | RAD ---
CHEST ONE VIEW: History: Pulmonary edema. Dyspnea. Comparison: 05-20-17 FINDINGS: Cardiac silhouette remains magnified and enlarged. Pulmonary vasculature remains engorged with wide s pread reticular nodular interstitial prominence and dense bibasilar infiltrates. Bilateral pleural fl uid is suspected. Mediastinum is midline. No evidence of pneumothorax. IMPRESSION: Radiographic findings of CHF are unchanged from the previous exam. POS: [facility]
[2017-05-22] MEDS: Vancomycin HCl 1 GM in Premix Bag 1 BAG IVPB SCH (17:49)
[2017-05-22] MEDS: Sodium Chloride 0.9% 1,000 ML IV SCH (17:51)
[2017-05-22] MEDS: Clopidogrel Bisulfate 75 MG TAB PO SCH (22:25)
[2017-05-22] MEDS: Finasteride 5 MG TAB PO SCH (22:26)
[2017-05-22] MEDS: Terazosin HCl 5 MG CAP PO SCH (22:26)
--- NOTE | 2017-05-23 01:56 | CON ---
DATE OF CONSULTATION: 05/22/2017 HISTORY OF PRESENT ILLNESS: Mr. River is an 87-year-old gentleman with altered mental status, who presented with worsening mental status change, UTI, congestive heart failure, worsening . He i s a DNR. I have been called to see the patient today regarding bilateral pleural effusion. Reason for thorace ntesis. Please note, 1. His is at the bedside, entire history obtained from talking to the . 2. Reviewed his all old medical records. 3. All x-rays and reports were reviewed at length before making any decision. now states that in March, he was admitted to the hospital with cough, congestion, and shortne ss of breath, prior to that he was very active, in fact mowed his lawn. He had prolonged stay in the hospital, almost a month. He has had worsening multiorgan failure. 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 Even on his admission note at [facility] for the first time on 04/20, he was difficult to arouse. PAST MEDICAL HISTORY: CHF, previous CO, atrial fibrillation, , and bilateral renal failure. PREVIOUS SURGERIES: Include hernia and pacemaker. MEDICATIONS: Include aspirin, Coreg 3.125, Plavix 75, finasteride 5 mg, Lasix 80, losartan 25, des onin 5, metolazone 2.5, vitamin, Hytrin 10, simvastatin 20. He now is started on vancomycin and fluc onazole. ALLERGIES: None. 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 No alcohol or tobacco abuse. FAMILY HISTORY: Unremarkable. REVIEW OF SYSTEM: Otherwise noted extensively, unable to obtain. PHYSICAL EXAMINATION: VITAL SIGNS: He is clearly encephalopathic, sats are 92% on supplemental oxygen, pulse 69, temperatu re 97, respiratory rate 20, blood pressure 140/85. CHEST: Bilateral rhonchi and crackles. CARDIAC: Normal S1, S2. ABDOMEN: No masses. LABORATORY DATA: White count 10, 000. H&H 11 and 38, platelet count is 46 and low, creatinine is 1. 2, BUN 42. X-RAY FINDINGS: His last chest x-ray shows evidence of bilateral pleural effusion, right greater meredith n left. His last echocardiogram done 03/2017, which shows that EF of 20% to 25%. IMPRESSION: 1. Severe congestive heart failure, EF 25%. 2. Bilateral pleural effusion, right greater than left. 3. Renal failure. 4. Encephalopathy. 5. Deaf. A thoracentesis will be attempted to relive for his dyspnea concerning his EF of only 20% to 25%. Ov erall severe deconditioned status. I thought thoracentesis would be meaningful. Discussed with at length. I would hold off any kind of thoracentesis unless he is more arousable. He is able to g et out of the bed and walk a little bit. Continue diet as prescribed. He is DNR with which I agree. Will discuss. Please note, this is a consultation note, 70 minutes time of which 50% time was directly spent with t he patient at bedside.
[2017-05-23 06:02] LABS: Anion Gap 13 mmol/L (10-20); BUN (Urea Nitrogen) 36 mg/dL (8.4-25.7); Calc. Creatinine Clearance 54 mL/min (70-130); Calcium 8.5 mg/dL (7.8-10.44); Carbon Dioxide 28 mmol/L (23-31); Chloride 111 mmol/L (98-107); Estimated GFR-MDRD 76; Glucose 76 mg/dL (83-110); Magnesium 2.9 mg/dL (1.6-2.6); Potassium 4.2 mmol/L (3.5-5.1); Sodium 148 mmol/L (136-145)
[2017-05-23 06:28] LABS: Band 10 % (5-11); Hemoglobin 11.4 g/dL (14.0-18.0); Lymphocytes 6 % (21-51); MDiff Complete? YES; Mean Corpuscular HGB CONC 31.4 g/dL (32.0-36.0); Mean Corpuscular Hemoglobin 30.9 pg (27.0-31.0); Mean Corpuscular Volume 98.4 fl (80.0-94.0); Mean Platelet Volume 10.7 fL (7.4-10.4); Monocytes 8 % (0-10); Neutrophil 75 % (42-75); PLT Morphology Comment Appears Decreased; Platelet Count 65 thou/uL (130-400); RBC Distribution Width 16.3 % (11.5-14.5); Reactive Lymphocytes 1 % (0-10); Red Blood Cell (RBC) Count 3.71 mill/uL (4.70-6.10); White Blood Cell (WBC) Count 10.8 thou/uL (4.8-10.8)
--- NOTE | 2017-05-23 07:38 | RAD ---
CHEST ONE VIEW: History: Dyspnea. Edema. Follow up. Comparison: 05-22-17 FINDINGS: Cardiac silhouette remains magnified and enlarged. Pulmonary vasculature remains engorged with dense bilateral airspace disease similar in appearance to the previous exam. Mediastinum is midline with ao rtic calcification and a multi-lead left subclavian cardiac electronic devise. No evidence of pneumot horax. IMPRESSION: 1. Radiographic findings of CHF are unchanged from the previous exam. POS: [facility]
[2017-05-23] MEDS: Famotidine/PF 20 mg/2ml Vial SLOW IVP SCH (09:38)
[2017-05-23] MEDS: Fluconazole In NaCl,Iso-Osm 200 MG in Premix Bag 1 BAG IVPB SCH ×2 (09:38)
[2017-05-23] MEDS: Carvedilol 3.125 MG TAB PO SCH ×2 (09:39→20:31)
[2017-05-23] MEDS: Enoxaparin Sodium 40 MG/0.4 ML SYRINGE SC SCH (09:39)
[2017-05-23] MEDS: Digoxin 0.125 MG TAB PO SCH (09:39)
[2017-05-23] MEDS: Docusate 100 MG CAP PO SCH ×2 (09:39→20:31)
--- NOTE | 2017-05-23 09:58 | PRG ---
DATE OF SERVICE: 05/23/2017 He was seen today. His mouth is open, minimally responsive. PHYSICAL EXAMINATION: VITAL SIGNS: Sats 90% on nasal O2. Temperature 97, blood pressure 123/70. I's and O's difficult to assess. CHEST: Chest reveals decreased breath sounds, no wheezing. CARDIAC: Normal S1, S2. ABDOMEN: Soft, no masses. LABORATORY: Platelet count 65,000, H&H is 9 and 30. White count 10,000. Electrolytes are normal. His x-ray today still shows bilateral large pleural effusions, right greater than left. IMPRESSION: 1. Congestive heart failure. 2. Mild azotemia. 3. Severe deconditioning. PLAN: Avoid thoracentesis for the time being until is more mobile. Nutrition, PT. Per primary care physician he is a DNR.
[2017-05-23] MEDS: Sodium Chloride 0.9% 1,000 ML IV SCH (12:08)
[2017-05-23 13:34] LABS: pH, Arterial 7.28 (7.35-7.45)
[2017-05-23 13:35] LABS: Actual Bicarbonate (HCO3a) 29.2 mEq/L (22-26); Base Excess (BEa) 1.4 mEq/L (0 (+/-) 2.5); CO2 Tension 63.4 mmHg (35.0-45.0); Hemoglobin (Hb) 10.9 g/dL (14.0-18.0); O2 Tension (PaO2) 95.2 mmHg (80.0-100.0)
[2017-05-23 13:36] LABS: Calcium, Ionized 1.2 mmol/L (1.12-1.30); Puncture Site RRA
--- NOTE | 2017-05-23 14:34 | PDOC.PN ---
- Subjective Encounter Start Date: 05/23/17 Encounter Start Time: 09:00 -: non-verbal PT largely unchange,d no more arousable. Afebrile, no acute overnight events, nonverbal. SOn and at bedside. Case discussed with Dr Carey face to face, no plans for thoracensis right now. - Objective Resuscitation Status: Resuscitation Status DNR:Do Not Resuscitate MAR Reviewed: Yes Vital Signs & Weight: Vital Signs (12 hours) Temp Pulse Resp BP Pulse Ox 05/23/17 12:00 96.1 F L 69 16 120/70 99 05/23/17 09:39 70 05/23/17 08:00 97.7 F 70 16 123/70 99 05/23/17 04:00 97.3 F L 71 20 118/74 94 L Weight Weight 157 lb 3.2 oz I&O: 05/22/17 05/23/17 05/24/17 06:59 06:59 06:59 Intake Total 600 569 Balance 600 569 Result Diagrams: 05/23/17 05:09 05/23/17 05:09 Radiology Reviewed by me: Yes EKG Reviewed by me: Yes Phys Exam - Physical Examination Constitutional: NAD HEENT: PERRLA, sclera anicteric, oral pharynx no lesions mouth dry Neck: no nodes, no JVD, supple, full ROM Respiratory: no wheezing, no rales, no rhonchi, clear to auscultation bilateral Cardiovascular: RRR, no significant murmur, no rub Gastrointestinal: soft, non-tender, no distention, positive bowel sounds Musculoskeletal: pulses present, edema present Neurological: non-focal, moves all 4 limbs Lymphatic: no nodes Deviation from normal: somnolent, responds to tactile and painful stimuli Skin: no rash, normal turgor, cap refill <2 seconds Dx/Plan (1) Metabolic encephalopathy Code(s): G93.41 - METABOLIC ENCEPHALOPATHY Status: Acute Comment: suspect related to meds and FABIOLA or infection, though GFR now 78 and no improvement. No other S/Sx of infecion. Will check NH3 (normal) and ABG (Hypercapnea present). symmetric psoas enlargement on CT, UTI present, though no bacteria seen, Cx with yeast. Start fluc, stop Vanc. afebrile, watch CBC, Cr. (2) Moderate protein-calorie malnutrition Code(s): E44.0 - MODERATE PROTEIN-CALORIE MALNUTRITION Status: Acute Comment : due to decreased po tnake for the last [address] consult - pt likely too sleepy to eat. Will discuss with DFT (3) Afib Code(s): I48.91 - UNSPECIFIED ATRIAL FIBRILLATION Status: Chronic Qualifiers: Atrial fibrillation type: chronic Qualified Code(s): I48.2 - Chronic atrial fibrillation Comment: S/P Watchman procedure in past.Stable on Digoxin.AICD in place. (4) CAD (coronary artery disease) Code(s): I25.10 - ATHSCL HEART DISEASE OF [place] CORONARY ARTERY W/O ANG PCTRS Status: Chronic Qualifiers: Coronary Disease-Associated Artery/Lesion type: [place] artery [place] vs. transplanted heart: [place] heart Associated angina: with stable angina Qualified Code(s): I25.118 - Atherosclerotic heart disease of [place] coronary artery with other forms of angina pectoris Comment: on ASA,BB,Plavix on hold due to inability to swallow (5) Dyslipidemia Code(s): E78.5 - HYPERLIPIDEMIA, UNSPECIFIED Status: Chronic (6) Demand ischemia of myocardium Code(s): I24.8 - OTHER FORMS OF ACUTE ISCHEMIC HEART DISEASE Status: Resolved Comment: resolved (7) UTI (urinary tract infection) Status: Resolved Qualifiers: Urinary tract infection type: acute cystitis Hematuria presence: without hematuria Qualified Code(s): N30.00 - Acute cystitis without hematuria Comment: E. coli pansensitive,s/p Cipro. Repeat Urine Cx 05/06 neg. Repeat UA ( 05/08/16)improved but with persistant bacteria- Cx with CoNS - doubt pathogenic. D/C'd to rehab without Rx appropriately. Back now iwth reactiv eurine, but no bacteria, 1+ yeast. Will Rx. (8) Moderate dehydration Code(s): E86.0 - DEHYDRATION Status: Acute Comment: on IV fluids carefully. Cr improving, BP trending upwards (9) FABIOLA (acute kidney injury) Code(s): N17.9 - ACUTE KIDNEY FAILURE, UNSPECIFIED Status: Resolved Comment : Cardiorenal syndrome compounded by dehydration. impvroing with fluids (10) Pleural effusion Code(s): J90 - PLEURAL EFFUSION, NOT ELSEWHERE CLASSIFIED Status: Acute Comment: no plans to tap at present (11) Ischemic cardiomyopathy Code(s): I25.5 - ISCHEMIC CARDIOMYOPATHY Status: Acute (12) Chronic systolic CHF (congestive heart failure) Code(s): I50.22 - CHRONIC SYSTOLIC (CONGESTIVE) HEART FAILURE Status: Acute (13) Acute hypercapnic respiratory failure Code(s): J96.02 - ACUTE RESPIRATORY FAILURE WITH HYPERCAPNIA Status: Acute Comment: will discuss biPAP with - Plan cont current plan of care, plan discussed w/ family, continue antibiotics, PT/OT , respiratory therapy * .
[2017-05-23 19:20] LABS: Base Excess (BEa) 2.2 mEq/L (0 (+/-) 2.5); CO2 Tension 55.2 mmHg (35.0-45.0); Hematocrit-ABG 34.7 % (42.0-52.0); Hemoglobin (Hb) 11.6 g/dL (14.0-18.0); pH, Arterial 7.34 (7.35-7.45)
[2017-05-23 19:21] LABS: Analyzer IN Cardio OR; Calcium, Ionized 1.2 mmol/L (1.12-1.30); Puncture Site RRA
[2017-05-23] MEDS: Clopidogrel Bisulfate 75 MG TAB PO SCH (20:31)
[2017-05-23] MEDS: Finasteride 5 MG TAB PO SCH (20:32)
[2017-05-23] MEDS: Terazosin HCl 5 MG CAP PO SCH (20:33)
--- NOTE | 2017-05-24 01:21 | CON ---
DATE OF CONSULTATION: 05/23/2017. REASON FOR CONSULTATION: Altered mental status. HISTORY OF PRESENT ILLNESS: Mr. River is an 87-year-old male who has been consulted for evaluation of altered mental status. History is very limited as the patient is unable to provide and there are no family members present at bedside. Thus, most of the history is obtained from the patient's medical records. Apparently, the patient had presented on 05/20/2017 with altered mental status. He was recently admitted to the hospital with UTI and discharged to rehab facility. He was declining in rehabilitation center and his mentation was significantly altered, which prompted them to bring him back to the emergency room. He was admitted for urinary tract infection. Today, he had sudden changes in responsiveness and was noted to have increased CO2 on ABG , which prompted them to bring him to the IMCU for BiPAP placement. Nurse reports that since being in the IMCU, he is being very lethargic and not able to follow any commands. He is very confused and disoriented. PAST MEDICAL HISTORY: Significant for hypertension, hyperlipidemia, coronary artery disease, myocardial infarction, chronic AFib. PAST SURGICAL HISTORY: Significant for hernia repair, pacemaker placement, Watchman procedure done, and AICD placement. FAMILY HISTORY: Noncontributory. SOCIAL HISTORY: He does not smoke cigarettes, drink alcohol, or use illicit drugs. CURRENT MEDICATIONS: Please review MAR. ALLERGIES: No known drug allergies. REVIEW OF SYSTEMS: Unable to perform. PHYSICAL EXAMINATION: VITAL SIGNS: Blood pressure of 127/68, pulse of 70, temperature of 96.5, respirations of 20 on BiPAP. GENERAL: Obtunded male in no apparent distress. RESPIRATORY: Clear to auscultation bilaterally. CARDIOVASCULAR: Regular rate and rhythm. NEUROLOGIC: Mental status: The patient is obtunded. He does open his eyes to verbal stimuli, but does not follow any commands. He is nonverbal. He has a BiPAP on. Cranial nerves: Pupils are 3 mm and reactive. He blinks to threat on both sides. Face appears symmetric. Motor exam showed normal tone and bulk. He spontaneously moves both upper and lower extremities, but does not follow to commands. Sensory: Withdraws to pain in both upper and lower extremities. Deep tendon reflexes, 1+ reflexes in both upper and lower extremities. Babinski: Plantar responses flexion bilaterally. LABORATORY DATA: Reviewed, which included CBC, D-dimer, ABG, CMP, troponin, and urinalysis, which is significant for hemoglobin 11.4, hematocrit 36.5. D- dimer of 1.54. ABG showed pH of 7.34, pCO2 of 55.2, and pO2 of 105. Sodium 148 , magnesium 2.9. Troponin of 0.237, otherwise unremarkable. IMAGING STUDIES: CT head without contrast done on 05/20/2017 was reviewed, which showed no acute intracranial abnormality. IMPRESSION: 1. Altered mental status, likely toxic encephalopathy. 2. Hypercapnic hypoxemia. Mr. River is a pleasant 87-year-old male admitted with a urinary tract infection, was found to have hypercapnic hypoxemia. This is the likely cause for his recent changes in mentation. At this time, I will recommend continuing current medical management. Thank you for consultation. ALCON
[2017-05-24 05:18] LABS: ALT (SGPT) 42 U/L (8-55); AST (SGOT) 49 U/L (5-34); Albumin 3.2 g/dL (3.4-4.8); Alkaline Phosphatase 136 U/L (40-150); Anion Gap 16 mmol/L (10-20); BUN (Urea Nitrogen) 33 mg/dL (8.4-25.7); Bilirubin, Total 1.4 mg/dL (0.2-1.2); Calc. Creatinine Clearance 52 mL/min (70-130); Calcium 8.9 mg/dL (7.8-10.44); Carbon Dioxide 25 mmol/L (23-31); Chloride 113 mmol/L (98-107); Estimated GFR-MDRD 74; Glucose 65 mg/dL (83-110); Magnesium 2.8 mg/dL (1.6-2.6); Potassium 4.4 mmol/L (3.5-5.1); Protein, Total 6.2 g/dL (5.8-8.1); Sodium 150 mmol/L (136-145)
[2017-05-24 05:22] LABS: Band 7 % (5-11); Hemoglobin 12.3 g/dL (14.0-18.0); Lymphocytes 4 % (21-51); MDiff Complete? YES; Mean Corpuscular HGB CONC 30.4 g/dL (32.0-36.0); Mean Corpuscular Hemoglobin 30.4 pg (27.0-31.0); Mean Platelet Volume 10.6 fL (7.4-10.4); Monocytes 7 % (0-10); Myelocyte 2 % (0-0); Neutrophil 80 % (42-75); Nucleated RBC 1 % (0); PLT Morphology Comment Appears Decreased; Platelet Count 76 thou/uL (130-400); RBC Distribution Width 16.6 % (11.5-14.5); Red Blood Cell (RBC) Count 4.03 mill/uL (4.70-6.10); White Blood Cell (WBC) Count 11.4 thou/uL (4.8-10.8)
[2017-05-24 08:03] LABS: Actual Bicarbonate (HCO3a) 27.5 mEq/L (22-26); Base Excess (BEa) -0.1 mEq/L (0 (+/-) 2.5); CO2 Tension 59.5 mmHg (35.0-45.0); Hemoglobin (Hb) 11.4 g/dL (14.0-18.0); pH, Arterial 7.28 (7.35-7.45)
[2017-05-24 08:04] LABS: ALV-art Gradient 187.125 (0-20); Calcium, Ionized 1.3 mmol/L (1.12-1.30); Hematocrit-ABG 35.2 % (42.0-52.0); Puncture Site RRA
[2017-05-24] MEDS ORDERED: Dextrose 5 %-0.45 % NaCl 1,000 ML IV SCH (08:30)
[2017-05-24] MEDS: Enoxaparin Sodium 40 MG/0.4 ML SYRINGE SC SCH (08:30)
[2017-05-24] MEDS: Docusate 100 MG CAP PO SCH (08:31)
[2017-05-24] MEDS: Carvedilol 3.125 MG TAB PO SCH (08:31)
[2017-05-24] MEDS: Famotidine/PF 20 mg/2ml Vial SLOW IVP SCH (08:31)
[2017-05-24] MEDS: Digoxin 0.125 MG TAB PO SCH (08:31)
[2017-05-24] MEDS: Fluconazole In NaCl,Iso-Osm 200 MG in Premix Bag 1 BAG IVPB SCH ×2 (08:38)
--- NOTE | 2017-05-24 08:45 | PRG ---
DATE OF SERVICE: 05/24/2017 He was transferred downstairs last night because of blood gases, CO2 retention. PO2 was 95, pCO2 60, pH 7.28 on 2 liters. X-ray shows extensive interstitial infiltrates and bilateral pleural effusions , right greater than left, cardiomegaly. His ejection fraction was only 20%. The patient is pretty much unresponsive, encephalopathic. PHYSICAL EXAMINATION: VITAL SIGNS: His blood pressure 136/99, sats 90% on BiPAP, respirations 24, temperature 96. CHEST: Chest reveals decreased breath sounds, bilateral rhonchi and crackles. CARDIAC: Sinus tachycardia. ABDOMEN: Soft, no masses. White count 11,000, H&H 12 and 40, platelet count is 76. IMPRESSION: 1. Multiorgan failure. 2. Bilateral pleural effusions secondary to cardiomyopathy. 3. Electrolyte imbalance. 4. Encephalopathy. PLAN: I would discontinue the BiPAP, not much benefit at this stage. Comfort care.
--- NOTE | 2017-05-24 15:26 | PDOC.PN ---
- Subjective Encounter Start Date: 05/24/17 Encounter Start Time: 10:15 - Objective Resuscitation Status: Resuscitation Status DNR:Do Not Resuscitate Vital Signs & Weight: Vital Signs (12 hours) Temp Pulse Resp BP Pulse Ox 05/24/17 12:04 96.6 F L 71 20 117/69 87 L 05/24/17 11:59 95 05/24/17 08:31 72 05/24/17 08:00 96.4 F L 72 14 100 05/24/17 07:57 72 24 H 99 05/24/17 05:01 96.8 F L 71 16 136/99 H 100 Weight Weight 155 lb 14.4 oz I&O: 05/23/17 05/24/17 05/25/17 06:59 06:59 06:59 Intake Total 569 700 Balance 569 700 Result Diagrams: 05/24/17 04:06 05/24/17 04:06 Dx/Plan (1) Metabolic encephalopathy Code(s): G93.41 - METABOLIC ENCEPHALOPATHY Status: Acute Comment: suspect related to meds and FABIOLA or infection, though GFR now 78 and no improvement. No other S/Sx of infecion. Will check NH3 (normal) and ABG (Hypercapnea present). symmetric psoas enlargement on CT, UTI present, though no bacteria seen, Cx with yeast. Start fluc, stop Vanc. afebrile, watch CBC, Cr. (2) Moderate protein-calorie malnutrition Code(s): E44.0 - MODERATE PROTEIN-CALORIE MALNUTRITION Status: Acute Comment : due to decreased po tnake for the last [address] consult - pt likely too sleepy to eat. Will discuss with DFT (3) Afib Code(s): I48.91 - UNSPECIFIED ATRIAL FIBRILLATION Status: Chronic Qualifiers: Atrial fibrillation type: chronic Qualified Code(s): I48.2 - Chronic atrial fibrillation Comment: S/P Watchman procedure in past.Stable on Digoxin.AICD in place. (4) CAD (coronary artery disease) Code(s): I25.10 - ATHSCL HEART DISEASE OF [place] CORONARY ARTERY W/O ANG PCTRS Status: Chronic Qualifiers: Coronary Disease-Associated Artery/Lesion type: [place] artery [place] vs. transplanted heart: [place] heart Associated angina: with stable angina Qualified Code(s): I25.118 - Atherosclerotic heart disease of [place] coronary artery with other forms of angina pectoris Comment: on ASA,BB,Plavix on hold due to inability to swallow (5) Dyslipidemia Code(s): E78.5 - HYPERLIPIDEMIA, UNSPECIFIED Status: Chronic (6) Demand ischemia of myocardium Code(s): I24.8 - OTHER FORMS OF ACUTE ISCHEMIC HEART DISEASE Status: Resolved Comment: resolved (7) UTI (urinary tract infection) Status: Resolved Qualifiers: Urinary tract infection type: acute cystitis Hematuria presence: without hematuria Qualified Code(s): N30.00 - Acute cystitis without hematuria Comment: E. coli pansensitive,s/p Cipro. Repeat Urine Cx 05/06 neg. Repeat UA ( 05/08/16)improved but with persistant bacteria- Cx with CoNS - doubt pathogenic. D/C'd to rehab without Rx appropriately. Back now iwth reactiv eurine, but no bacteria, 1+ yeast. Will Rx. (8) Moderate dehydration Code(s): E86.0 - DEHYDRATION Status: Acute Comment: on IV fluids carefully. Cr improving, BP trending upwards (9) FABIOLA (acute kidney injury) Code(s): N17.9 - ACUTE KIDNEY FAILURE, UNSPECIFIED Status: Resolved Comment : Cardiorenal syndrome compounded by dehydration. impvroing with fluids (10) Pleural effusion Code(s): J90 - PLEURAL EFFUSION, NOT ELSEWHERE CLASSIFIED Status: Acute Comment: no plans to tap at present (11) Ischemic cardiomyopathy Code(s): I25.5 - ISCHEMIC CARDIOMYOPATHY Status: Acute (12) Chronic systolic CHF (congestive heart failure) Code(s): I50.22 - CHRONIC SYSTOLIC (CONGESTIVE) HEART FAILURE Status: Acute (13) Acute hypercapnic respiratory failure Code(s): J96.02 - ACUTE RESPIRATORY FAILURE WITH HYPERCAPNIA Status: Acute Comment: will discuss biPAP with - Plan * .
[2017-05-24 20:15] VITALS: BP 132/69; TEMP 96.2
--- NOTE | 2017-05-26 12:21 | EKG ---
Test Reason : Blood Pressure : / mmHG Vent. Rate : 091 BPM Atrial Rate : 085 BPM P-R Int : 000 ms QRS Dur : 194 ms QT Int : 426 ms P-R-T Axes : 000 -78 096 degrees QTc Int : 523 ms Ventricular-paced rhythm with occasional Premature ventricular complexes Abnormal ECG Confirmed by MT BAI M.D. ([id number]), newspaper or periodical editor DONNY DUNHAM ([id number]) on 05/26/2017 12:21:28 PM Referred By: Confirmed By:MT BAI M.D.
== END 2017-05-24 20:35 | disposition hospice, inpatient (51) | DRG 682 ==
LOC: ERS 13:06 → ERHOLD 18:39 → 2SE 22:47 → T4-B 05-21 20:13 → IMCU/EMU 05-23 16:59
PROVIDERS: ADMIT Family Medicine; ATTEND Family Medicine
DX: N17.9 Acute kidney failure, unspecified (principal); G93.41 Metabolic encephalopathy; I50.23 Acute on chronic systolic (congestive) heart failure; E44.0 Moderate protein-calorie malnutrition; J96.02 Acute respiratory failure with hypercapnia; J96.01 Acute respiratory failure with hypoxia; D69.6 Thrombocytopenia, unspecified; E87.5 Hyperkalemia; I24.8 Other forms of acute ischemic heart disease; I48.2 Chronic atrial fibrillation; N30.00 Acute cystitis without hematuria; I13.0 Hypertensive heart and chronic kidney disease with heart failure and stage 1 through stage 4 chronic kidney disease, or unspecified chronic kidney disease; N18.3 Chronic kidney disease, stage 3 (moderate); E78.5 Hyperlipidemia, unspecified; I25.10 Atherosclerotic heart disease of native coronary artery without angina pectoris; Z66 Do not resuscitate; I25.2 Old myocardial infarction; Z95.0 Presence of cardiac pacemaker; Z79.01 Long term (current) use of anticoagulants; Z79.82 Long term (current) use of aspirin; Z68.22 Body mass index [BMI] 22.0-22.9, adult; B96.20 Unspecified Escherichia coli [E. coli] as the cause of diseases classified elsewhere; E86.0 Dehydration; I25.5 Ischemic cardiomyopathy
CPT/HCPCS: 36415; 51701; 70450; 71045; 71275; 80048; 80053; 80202; 81003; 81015; 82140; 82553; 82805; 83605; 83690; 83735; 83880; 84443; 84484; 85025; 85379; 87040; 87086; 93005; 93798; 94660; 96361; 96365; 96366; 96375; A4216; G8978-GP-CM; G8979-GP-CL; G8987-GO-CN; G8988-GO-CK; G8996-GN-CN; G8997-GN-CI; J1450; J1650; J1940; J3370; J7050; S0028